=== PATIENT | male | born 1985 | race Caucasian/White ===

== ENCOUNTER 2017-08-27 14:25 | Inpatient (IN) | payer MEDICAID, OTHER ==
[~2017-08-27] VITALS: Ht 175.3 cm; Wt 104.9 kg
[2017-08-27 14:20] VITALS: O2SAT 100
[2017-08-27] MEDS ORDERED: MIDAZOLAM HCL 5 MG/ML VIAL (1 ML) ONE (14:33)
[2017-08-27 14:47] LABS: AUTOMATED NEUTROPHIL # 8.8 TH/MM3 (1.8-7.7); BASOPHIL # 0.1 TH/MM3 (0-0.2); EOSINOPHIL # 0.1 TH/MM3 (0-0.4); EOSINOPHIL % 0.5 % (0.0-4.0); HEMATOCRIT 42.9 % (39.0-51.0); LYMPH % 15.9 % (9.0-44.0); LYMPHOCYTE # 1.8 TH/MM3 (1.0-4.8); MEAN CELL VOLUME 92.5 FL (80.0-100.0); MEAN CORPUSCULAR HEMOGLOBIN 32.3 PG (27.0-34.0); MEAN PLATELET VOLUME 8.5 FL (7.0-11.0); MONO % 6.7 % (0.0-8.0); MONOCYTE # 0.8 TH/MM3 (0-0.9); NEUT % 75.9 % (16.0-70.0); PLATELET COUNT 255 TH/MM3 (150-450); RED BLOOD COUNT 4.64 MIL/MM3 (4.50-5.90); RED CELL DISTRIBUTION WIDTH 12.5 % (11.6-17.2); WHITE BLOOD COUNT 11.6 TH/MM3 (4.0-11.0)
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
[2017-08-27] MEDS ORDERED: IOHEXOL 350 MG/ML 10 ML VIAL (for RAD DIAG) IVCONTRAST ONE (15:08)
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
[2017-08-27 15:17] LABS: INTERNATIONAL NORMALIZED RATIO 1.1 RATIO; PROTHROMBIN TIME - PATIENT 10.8 SEC (9.8-11.6)
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
[2017-08-27] MEDS: ACETAMINOPHEN 1000 MG/100 ML 100 ML IV SCH ×2 (15:30→20:26)
[2017-08-27] MEDS ORDERED: MAGNESIUM HYDROXIDE SUSP 30 ML CUP PO PRN (15:30)
[2017-08-27] MEDS ORDERED: CHLORHEXIDINE GLUCONATE 2 % 1 PACK (2 CLOTHS) TOP PRN (15:30)
[2017-08-27] MEDS ORDERED: SENNOSIDES 8.6 MG TAB PO PRN (15:30)
[2017-08-27] MEDS ORDERED: MISCELLANEOUS NURSING INFORMATION XX SCH (15:30)
[2017-08-27] MEDS ORDERED: BISACODYL 10 MG SUPP RECTAL PRN (15:30)
[2017-08-27] MEDS ORDERED: LACTULOSE SYRUP 20 GM/30 ML CUP PO PRN (15:30)
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
[2017-08-27] MEDS: SODIUM CHLOR 0.9% 1000 ML INJ 1,000 ML IV SCH (15:45)
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
[2017-08-27] MEDS: MORPHINE SULFATE 2 MG/ML INJ IV PUSH PRN ×2 (15:52→17:39)
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
[2017-08-27 16:00] VITALS: PULSE 60
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
[2017-08-27] MEDS: POTASSIUM CHLOR 10 MEQ PREMIX 100 ML IV SCH ×3 (17:00→19:00)
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
[2017-08-27 20:00] VITALS: BP 107/52; PULSE 68; RESP 11; TEMP 97.5; O2SAT 99
[2017-08-27] MEDS: CHLORHEXIDINE GLUCONATE 2 % 1 PACK (2 CLOTHS) TOP SCH (20:14)
[2017-08-27] MEDS: FAMOTIDINE 20 MG/2 ML VIAL IV PUSH SCH (20:25)
[2017-08-27] MEDS: DOCUSATE SODIUM 50 MG/SENNA 8.6 MG TAB PO SCH (20:26)
[2017-08-27 20:34] VITALS: BP 110/56; PULSE 60; RESP 15; TEMP 95.5; O2SAT 99
[2017-08-27 21:05] VITALS: O2SAT 98
[2017-08-27 22:00] VITALS: PULSE 56
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
[2017-08-28] VITALS (11 sets, daily range): BP systolic 95–115; BP diastolic 52–77; PULSE 57–89; RESP 12–32; TEMP 94.5–100; O2SAT 95–98
[2017-08-28] MEDS: MORPHINE SULFATE 2 MG/ML INJ IV PUSH PRN ×5 (01:36→20:30)
[2017-08-28] MEDS: SODIUM CHLOR 0.9% 1000 ML INJ 1,000 ML IV SCH ×3 (02:12→16:50)
[2017-08-28] MEDS: ACETAMINOPHEN 1000 MG/100 ML 100 ML IV SCH ×4 (02:12→20:40)
[2017-08-28 03:55] LABS: BASOPHIL % 0.2 % (0.0-2.0); EOSINOPHIL % 0.1 % (0.0-4.0); HEMATOCRIT 37.6 % (39.0-51.0); HEMOGLOBIN 12.8 GM/DL (13.0-17.0); LYMPH % 11.3 % (9.0-44.0); LYMPHOCYTE # 1.4 TH/MM3 (1.0-4.8); MEAN CORPUSCULAR HEMOGLOBIN 32.3 PG (27.0-34.0); MEAN PLATELET VOLUME 8.5 FL (7.0-11.0); MONO % 9.6 % (0.0-8.0); MONOCYTE # 1.2 TH/MM3 (0-0.9); NEUT % 78.8 % (16.0-70.0); PLATELET COUNT 222 TH/MM3 (150-450); RED BLOOD COUNT 3.96 MIL/MM3 (4.50-5.90); RED CELL DISTRIBUTION WIDTH 12.4 % (11.6-17.2); WHITE BLOOD COUNT 12.7 TH/MM3 (4.0-11.0)
[2017-08-28 04:17] LABS: BICARBONATE 22.3 MEQ/L (21.0-32.0); CALCIUM 8.2 MG/DL (8.5-10.1); CREATININE 0.78 MG/DL (0.60-1.30); MAGNESIUM 2.2 MG/DL (1.5-2.5); PHOSPHORUS 3.4 MG/DL (2.5-4.9)
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
[2017-08-28] MEDS ORDERED: THROMBIN (TOPICAL) 5,000 UNIT VIAL ONE (08:30)
[2017-08-28] MEDS ORDERED: MICROFIBRILLAR COLLAGEN HEMOSTAT 70 X 35 MM BANDAGE ONE (08:30)
[2017-08-28] MEDS ORDERED: GELFOAM SIZE 100 ONE (08:30)
[2017-08-28] MEDS ORDERED: GENTAMICIN SULFATE 80 MG/2 ML VIAL ONE (08:31)
[2017-08-28] MEDS ORDERED: DEXAMETHASONE SOD PHOS 20 MG/5 ML VIAL ONE (08:31)
[2017-08-28] MEDS: DOCUSATE SODIUM 50 MG/SENNA 8.6 MG TAB PO SCH (08:59)
[2017-08-28] MEDS: FAMOTIDINE 20 MG/2 ML VIAL IV PUSH SCH (09:36)
[2017-08-28] MEDS ORDERED: HYDROmorphone HCL PF 2 MG/ML VIAL ONE (10:09)
[2017-08-28] MEDS ORDERED: PROPOFOL 500 MG/50 ML INJ 0 ML ONE (10:10)
[2017-08-28] MEDS ORDERED: DEXMEDETOMIDINE HCL 200 MCG/2 ML VIAL ONE (10:10)
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
[2017-08-28] MEDS ORDERED: VANCOMYCIN HCL 1000 MG VIAL ONE (10:47)
[2017-08-28] MEDS ORDERED: SODIUM CHLOR 0.9% 250 ML INJ 250 ML ONE (10:47)
[2017-08-28] MEDS ORDERED: ceFAZolin INJ 1,000 MG VIAL ONE (10:47)
[2017-08-28] MEDS ORDERED: ceFAZolin 2 GM PREMIX 50 ML ONE (10:47)
[2017-08-28] MEDS ORDERED: HYDROmorphone HCL PF 1 MG/ML VIAL ONE (10:56)
[2017-08-28] MEDS ORDERED: LACTATED RINGER'S 1000 ML INJ 1,000 ML IV ONE ×2 (11:00→12:00)
[2017-08-28] MEDS ORDERED: LIDOCAINE 1%/EPINEPHrine 1:100,000 SOLN 20 ML VIAL ONE (11:04)
[2017-08-28] MEDS ORDERED: SODIUM CHLOR 0.9% 1000 ML INJ 1,000 ML IV SCH (12:00)
[2017-08-28] MEDS ORDERED: GLYCOPYRROLATE 1 MG/5 ML SYRINGE IV PUSH ONE (12:00)
[2017-08-28] MEDS ORDERED: LIDOCAINE HCL 1% PF 5 ML SYRINGE OTHER ONE (12:00)
[2017-08-28] MEDS ORDERED: PHENYLEPH/NS 1000 MCG/10 ML SYR IV ONE (12:00)
[2017-08-28] MEDS ORDERED: DEXAMETHASONE SOD PHOS 4 MG/ML VIAL IV ONE (12:00)
[2017-08-28] MEDS ORDERED: NORMOSOL R INJ 1,000 ML IV ONE (12:00)
[2017-08-28] MEDS ORDERED: ePHEDrine/NS 25 MG/5 ML SYRINGE IV ONE (12:00)
[2017-08-28] MEDS ORDERED: PROPOFOL 200 MG/20 ML AMP IV ONE (12:00)
[2017-08-28] MEDS ORDERED: ceFAZolin 2 GM PREMIX 50 ML IV ONE (12:00)
[2017-08-28] MEDS ORDERED: ONDANSETRON HCL 4 MG/2 ML VIAL IV PUSH ONE (12:00)
[2017-08-28] MEDS ORDERED: NEOSTIGMINE 5 MG/5 ML SYRINGE IV PUSH ONE (12:00)
[2017-08-28] MEDS ORDERED: VANCOMYCIN INJ 1,000 MG in SODIUM CHLOR 0.9% 250 ML INJ 250 ML IV ONE (12:00)
[2017-08-28] MEDS ORDERED: ROCURONIUM INJ 50 MG/5 ML SYRINGE IV PUSH ONE (12:00)
[2017-08-28] MEDS ORDERED: VECURONIUM BROMIDE 20 MG VIAL IV ONE (12:00)
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
[2017-08-28] MEDS ORDERED: PROPOFOL 500 MG/50 ML INJ 100 ML ONE (13:36)
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
[2017-08-28] MEDS ORDERED: BISACODYL 10 MG SUPP RECTAL PRN (15:45)
[2017-08-28] MEDS ORDERED: DEXTROSE 50% IN WATER 50 ML VIAL(D50) IV PUSH PRN (15:45)
[2017-08-28] MEDS ORDERED: CYCLOBENZAPRINE HCL 10 MG TAB PO PRN (15:45)
[2017-08-28] MEDS ORDERED: RESP: ALBUTEROL 2.5 MG/3 ML NEB (PRN) INH (15:45)
[2017-08-28] MEDS ORDERED: GLUCAGON 1 MG/ML VIAL OTHER PRN (15:45)
[2017-08-28] MEDS ORDERED: cloNIDine HCL 0.1 MG TAB PO/NG PRN (15:45)
[2017-08-28] MEDS ORDERED: ONDANSETRON HCL 4 MG/2 ML VIAL IV PRN (15:45)
[2017-08-28] MEDS ORDERED: MENTHOL LOZENGE BUCCAL PRN (15:45)
[2017-08-28] MEDS ORDERED: MAGNESIUM HYDROXIDE SUSP 30 ML CUP PO PRN (15:45)
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
[2017-08-28] MEDS ORDERED: SUGAMMADEX SODIUM 200 MG/2 ML VIAL IV PUSH ONE (16:10)
[2017-08-28] MEDS ORDERED: DO NOT ADM ANY ANTICOAGULANT DRUGS PRN (16:24)
[2017-08-28] MEDS ORDERED: *RESP: ALBUTEROL 2.5 MG/3 ML NEB (PRN) PERIprocedural Use ONLY NEB ONE (16:35)
[2017-08-28] MEDS ORDERED: OXYMETAZOLINE HCL 0.05% 15 ML NASAL SPRAY ONE (16:40)
[2017-08-28] MEDS ORDERED: MIDAZOLAM HCL 2 MG/2 ML VIAL ONE (16:40)
[2017-08-28] MEDS: INSULIN ASPART SUPPLEMENTAL SCALE SQ SCH ×2 (16:44→21:00)
[2017-08-28] MEDS ORDERED: *morphine SULFATE 4 MG/ML PERIprocedure ONLY ONE ×2 (16:46→17:05)
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
[2017-08-28] MEDS ORDERED: ATROPINE SULFATE 1 MG/10 ML SYRINGE ONE (17:15)
[2017-08-28] MEDS: DEXAMETHASONE SOD PHOS 4 MG/ML VIAL IV PUSH SCH (17:43)
[2017-08-28] MEDS ORDERED: DOPamine INJ 1,600 MG in DEXTROSE 5% IN WATER INJ 210 ML IV PRN ×2 (17:45)
[2017-08-28] MEDS ORDERED: TERBUTALINE INJ 1 MG/ML AMP SQ PRN (17:45)
[2017-08-28] MEDS: CHLORHEXIDINE GLUCONATE 4% SOLN 120 ML BTL TOP SCH ×2 (19:57→21:00)
[2017-08-28] MEDS: ONDANSETRON HCL 4 MG/2 ML VIAL IV PUSH PRN (20:14)
[2017-08-28] MEDS: DOCUSATE SODIUM 100 MG CAP PO SCH (20:32)
[2017-08-28] MEDS: ceFAZolin 2 GM PREMIX 50 ML IV SCH (20:41)
[2017-08-29] VITALS (13 sets, daily range): BP systolic 109–122; BP diastolic 49–66; PULSE 52–95; RESP 12–18; TEMP 99.5–100.8; O2SAT 95–98
[2017-08-29] MEDS: DEXAMETHASONE SOD PHOS 4 MG/ML VIAL IV PUSH SCH ×4 (00:24→17:34)
[2017-08-29] MEDS: SODIUM CHLOR 0.9% 1000 ML INJ 1,000 ML IV SCH ×4 (00:52→23:46)
[2017-08-29] MEDS: MORPHINE SULFATE 2 MG/ML INJ IV PUSH PRN ×7 (01:07→21:00)
[2017-08-29] MEDS: ACETAMINOPHEN 1000 MG/100 ML 100 ML IV SCH ×2 (03:19→08:25)
[2017-08-29] MEDS: ceFAZolin 2 GM PREMIX 50 ML IV SCH ×2 (03:23→11:07)
[2017-08-29] MEDS: CHLORHEXIDINE GLUCONATE 2 % 1 PACK (2 CLOTHS) TOP SCH ×2 (03:24→23:49)
[2017-08-29 03:50] LABS: AUTOMATED NEUTROPHIL # 11.5 TH/MM3 (1.8-7.7); BASOPHIL % 0.2 % (0.0-2.0); HEMATOCRIT 36.2 % (39.0-51.0); HEMOGLOBIN 12.4 GM/DL (13.0-17.0); LYMPH % 8.6 % (9.0-44.0); LYMPHOCYTE # 1.2 TH/MM3 (1.0-4.8); MEAN CELL VOLUME 94.4 FL (80.0-100.0); MEAN CORPUSCULAR HEMOGLOBIN 32.3 PG (27.0-34.0); MEAN CORPUSCULAR HGB CONC 34.3 % (32.0-36.0); MEAN PLATELET VOLUME 8.7 FL (7.0-11.0); MONO % 7.1 % (0.0-8.0); NEUT % 84.1 % (16.0-70.0); PLATELET COUNT 209 TH/MM3 (150-450); RED BLOOD COUNT 3.83 MIL/MM3 (4.50-5.90); RED CELL DISTRIBUTION WIDTH 12.4 % (11.6-17.2); WHITE BLOOD COUNT 13.7 TH/MM3 (4.0-11.0)
[2017-08-29 04:25] LABS: ALBUMIN 3.2 GM/DL (3.4-5.0); ALT (GPT) 57 U/L (12-78); AST (GOT) 108 U/L (15-37); BLOOD UREA NITROGEN 9 MG/DL (7-18); CALCIUM 8.1 MG/DL (8.5-10.1); CHLORIDE 106 MEQ/L (98-107); CREATININE 0.77 MG/DL (0.60-1.30); GLOMERULAR FILTRATION RATE 118 ML/MIN (>89); GLUCOSE,RANDOM 134 MG/DL (74-106); SODIUM (NA) 139 MEQ/L (136-145)
[2017-08-29 04:27] LABS: ALKALINE PHOSPHATASE 60 U/L (45-117); TOTAL BILIRUBIN ADULT 0.6 MG/DL (0.2-1.0); TOTAL PROTEIN 6.6 GM/DL (6.4-8.2)
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
[2017-08-29] MEDS: INSULIN ASPART SUPPLEMENTAL SCALE SQ SCH ×4 (07:29→21:00)
[2017-08-29] MEDS: PANTOPRAZOLE SOD 40 MG DELAYED RELEASE TAB PO SCH (08:25)
[2017-08-29] MEDS: DOCUSATE SODIUM 100 MG CAP PO SCH ×2 (08:25→20:59)
[2017-08-29] MEDS ORDERED: PANTOPRAZOLE SODIUM 40 MG VIAL IVP SCH (09:00)
[2017-08-29] MEDS: ENOXAPARIN SODIUM 30 MG/0.3 ML SYRINGE SQ SCH (11:07)
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
[2017-08-29] MEDS: ACETAMINOPHEN 325 MG TAB PO PRN (17:34)
[2017-08-29] MEDS: CHLORHEXIDINE GLUCONATE 4% SOLN 120 ML BTL TOP SCH ×2 (20:56→21:00)
[2017-08-30] VITALS (14 sets, daily range): BP systolic 120–146; BP diastolic 57–75; PULSE 58–72; RESP 14–21; TEMP 98–100.9; O2SAT 91–98
[2017-08-30] MEDS: DEXAMETHASONE SOD PHOS 4 MG/ML VIAL IV PUSH SCH ×5 (00:02→23:50)
[2017-08-30] MEDS: ENOXAPARIN SODIUM 30 MG/0.3 ML SYRINGE SQ SCH ×3 (00:02→23:18)
[2017-08-30] MEDS: MORPHINE SULFATE 2 MG/ML INJ IV PUSH PRN ×5 (00:25→23:51)
[2017-08-30 03:30] LABS: AUTOMATED NEUTROPHIL # 10.4 TH/MM3 (1.8-7.7); BASOPHIL % 0.4 % (0.0-2.0); HEMATOCRIT 36.3 % (39.0-51.0); HEMOGLOBIN 12.4 GM/DL (13.0-17.0); LYMPH % 10.6 % (9.0-44.0); LYMPHOCYTE # 1.3 TH/MM3 (1.0-4.8); MEAN CELL VOLUME 93.7 FL (80.0-100.0); MEAN CORPUSCULAR HGB CONC 34.2 % (32.0-36.0); MEAN PLATELET VOLUME 8.9 FL (7.0-11.0); MONO % 6.4 % (0.0-8.0); MONOCYTE # 0.8 TH/MM3 (0-0.9); NEUT % 82.6 % (16.0-70.0); PLATELET COUNT 205 TH/MM3 (150-450); RED BLOOD COUNT 3.87 MIL/MM3 (4.50-5.90); RED CELL DISTRIBUTION WIDTH 12.3 % (11.6-17.2); WHITE BLOOD COUNT 12.6 TH/MM3 (4.0-11.0)
[2017-08-30 03:50] LABS: ALBUMIN 3.2 GM/DL (3.4-5.0); AST (GOT) 85 U/L (15-37); BICARBONATE 28.7 MEQ/L (21.0-32.0); BLOOD UREA NITROGEN 13 MG/DL (7-18); CALCIUM 8.4 MG/DL (8.5-10.1); CHLORIDE 104 MEQ/L (98-107); GLOMERULAR FILTRATION RATE 113 ML/MIN (>89); GLUCOSE,RANDOM 137 MG/DL (74-106); SODIUM (NA) 138 MEQ/L (136-145)
[2017-08-30 03:53] LABS: ALKALINE PHOSPHATASE 58 U/L (45-117); ALT (GPT) 50 U/L (12-78); TOTAL BILIRUBIN ADULT 0.6 MG/DL (0.2-1.0); TOTAL PROTEIN 6.8 GM/DL (6.4-8.2)
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
[2017-08-30] MEDS ORDERED: BISACODYL 10 MG SUPP RECTAL PRN (07:00)
[2017-08-30] MEDS: INSULIN ASPART SUPPLEMENTAL SCALE SQ SCH ×4 (08:00→21:00)
[2017-08-30] MEDS: LACTULOSE SYRUP 20 GM/30 ML CUP PO SCH (09:15)
[2017-08-30] MEDS: DOCUSATE SODIUM 50 MG/SENNA 8.6 MG TAB PO SCH ×2 (09:16→21:31)
[2017-08-30] MEDS: PANTOPRAZOLE SOD 40 MG DELAYED RELEASE TAB PO SCH (09:16)
[2017-08-30] MEDS: ACETAMINOPHEN/HYDROcodone 325 MG/10 MG TAB PO PRN ×4 (09:29→20:59)
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
[2017-08-30] MEDS ORDERED: FLUTICASONE PROPIONATE 50 MCG/ACT 16 GM NASAL SPRAY NASAL ONE (09:45)
[2017-08-30] MEDS ORDERED: SODIUM CHLORIDE 0.65% NASAL SPRAY 45 ML BTL EACH NARE PRN (09:45)
[2017-08-30] MEDS: BACLOFEN 10 MG TAB PO SCH ×3 (10:21→21:45)
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
[2017-08-30] MEDS: FLUTICASONE PROPIONATE 50 MCG/ACT 16 GM NASAL SPRAY NASAL SCH (21:00)
[2017-08-30] MEDS: CHLORHEXIDINE GLUCONATE 4% SOLN 120 ML BTL TOP SCH (21:00)
[2017-08-31] VITALS (13 sets, daily range): BP systolic 100–123; BP diastolic 53–82; PULSE 48–75; RESP 13–21; TEMP 98.2–99.7; O2SAT 94–99
[2017-08-31] MEDS: ACETAMINOPHEN/HYDROcodone 325 MG/10 MG TAB PO PRN ×4 (03:05→13:57)
[2017-08-31] MEDS: CHLORHEXIDINE GLUCONATE 2 % 1 PACK (2 CLOTHS) TOP SCH (04:00)
[2017-08-31] MEDS: DEXAMETHASONE SOD PHOS 4 MG/ML VIAL IV PUSH SCH ×4 (05:31→23:18)
[2017-08-31] MEDS: BACLOFEN 10 MG TAB PO SCH ×3 (06:32→20:30)
[2017-08-31 07:06] LABS: AUTOMATED NEUTROPHIL # 8.9 TH/MM3 (1.8-7.7); BASOPHIL % 0.3 % (0.0-2.0); HEMATOCRIT 37.8 % (39.0-51.0); HEMOGLOBIN 12.9 GM/DL (13.0-17.0); LYMPH % 14.5 % (9.0-44.0); LYMPHOCYTE # 1.7 TH/MM3 (1.0-4.8); MEAN CORPUSCULAR HEMOGLOBIN 32.2 PG (27.0-34.0); MEAN CORPUSCULAR HGB CONC 34.2 % (32.0-36.0); MEAN PLATELET VOLUME 9.1 FL (7.0-11.0); MONO % 9.5 % (0.0-8.0); MONOCYTE # 1.1 TH/MM3 (0-0.9); NEUT % 75.7 % (16.0-70.0); PLATELET COUNT 224 TH/MM3 (150-450); RED BLOOD COUNT 4.02 MIL/MM3 (4.50-5.90); RED CELL DISTRIBUTION WIDTH 12.5 % (11.6-17.2); WHITE BLOOD COUNT 11.8 TH/MM3 (4.0-11.0)
[2017-08-31 07:39] LABS: ALBUMIN 3.2 GM/DL (3.4-5.0); ALT (GPT) 43 U/L (12-78); AST (GOT) 66 U/L (15-37); BICARBONATE 26.6 MEQ/L (21.0-32.0); BLOOD UREA NITROGEN 16 MG/DL (7-18); CALCIUM 8.5 MG/DL (8.5-10.1); CHLORIDE 102 MEQ/L (98-107); GLOMERULAR FILTRATION RATE 113 ML/MIN (>89); GLUCOSE,RANDOM 124 MG/DL (74-106); SODIUM (NA) 137 MEQ/L (136-145)
[2017-08-31 07:42] LABS: ALKALINE PHOSPHATASE 57 U/L (45-117); TOTAL BILIRUBIN ADULT 0.7 MG/DL (0.2-1.0)
--- NOTE | 2017-08-31 08:48 | HHI.PR ---
Neuropsych Cognitive Cognitive: Intact: Cognitive, Attention/Concentration, Confused/Orientation, Insight/Awareness, Judgement/Problem-Solving, Memory Psychosocial Psychosocial: Intact: Self-Esteem/Confidence, Moderate: Psychosocial, Family/ Other Adjustment, Realistic Expectation Progress Notes/Response to Tx Contents of Sessions: Adjustment, Level of Consciousness Time with Patient: 15 minutes Premorbid psychological status Premorbid Cognitive, Emotional and Behavioral Status: Stable. The patient has high school years of education and a solid work history prior to this injury. [place]. The patient has no prior psychiatric difficulties, as described above. Substance abuse history is unremarkable. Behavioral Reactions of Patient and Family/Support System: Stable. The patient s family is experiencing ongoing issues of adjustment given the nature of the injury, and this aspect of recovery will require ongoing monitoring. Emotional/Behavioral Status of Patient and Family/Support System: Stable. Pertinent issues, if appropriate to this patients clinical care, are described in detail above. Maximizing acute care outcome It is recommended that the patient be monitored for emergent emotional reactivity as the medical condition evolves. This patients neuropathological challenges may limit his rehabilitation potential going forward, and these challenges will require specialized therapeutic skills to maximize outcome. Additionally, the patients family is experiencing ongoing issues of adjustment given the traumatic nature of the injury, and they may benefit from ongoing psychological assistance. At this point in the recovery process, the patient does have cognitive capacity as the patient is able to understand a situation and its likely consequences, and he is able to manipulate information rationally. Cognitive capacity will be assessed throughout the recovery process. I will follow this patient throughout his acute care stay for adjustment issues. As an adjunct to his emotional stability and pain control, consider starting Cymbalta 30 BID, unless medically contraindicated. Anticipated Problems Ongoing areas of concern will include psychological adjustment, which is expected to improve with time and treatment. Given the severity of the patient's injuries it is my clinical opinion that this patient will be unable to return to any type of productive employment for at least one year, perhaps longer and likely never. Treatment Plan This clinician will continue to follow with you throughout the course of this patients acute care treatment, and I will be available to meet with the patient s family/support system to facilitate their understanding and the ongoing care of their family member. The goals of neuropsychological intervention shall be both educational and supportive to the family/support system as is deemed clinically appropriate. Impression This is a 31 year old man s/p SCI at C5-6 2T [facility]. He is being followed for emotional adjustment following a spinal cord injury. Diagnosis: (1) Adjustment disorder with anxiety Progress Note Narrative Ongoing follow-up of patient seen during daily trauma rounds. This is day 4 post injury. The patient remains neurobehaviorally appropriate, upbeat about his condition. He is able to move his upper extremities. No suicidal or homicidal ideation reported. I provided psychosocial support and encouragement. Trauma team consensus is to start Cymbalta 30 BID. I will continue to follow. Americo Levine PhD Aug 31, 2017 8:48 am
[2017-08-31] MEDS: PANTOPRAZOLE SOD 40 MG DELAYED RELEASE TAB PO SCH (09:38)
[2017-08-31] MEDS: LACTULOSE SYRUP 20 GM/30 ML CUP PO SCH (09:38)
[2017-08-31] MEDS: DOCUSATE SODIUM 50 MG/SENNA 8.6 MG TAB PO SCH ×2 (09:38→20:30)
[2017-08-31] MEDS: ENOXAPARIN SODIUM 30 MG/0.3 ML SYRINGE SQ SCH ×2 (09:39→23:18)
--- NOTE | 2017-08-31 09:46 | RADRPT ---
EXAM DATE/TIME: 08/31/2017 08:17 [place] COMPARISON: ELBOW LEFT COMPLETE (4 VWS), August 27, 2017, 22:15. ELBOW LEFT LIMITED (AP & LAT), August 27 8, 14:27. INDICATIONS : Left elbow pain, follow up dislocation and reduction MEDICAL HISTORY : left elbow dislocation, c-spine fracture SURGICAL HISTORY : c-spine, halo ENCOUNTER: Subsequent ACUITY: 4 - 6 days PAIN SCORE: 5/10 LOCATION: Left elbow FINDINGS: Multiple views of the left elbow were obtained and demonstrate reduction of the previously noted post erior dislocation. There is residual widening of joint space. There is an apparent subtle fracture of the radial head. CONCLUSION: Postreduction study as described. Jared Maria MD on August 31, 2017 at 9:21 Board Certified Radiologist. This report was verified electronically.
[2017-08-31] MEDS ORDERED: MORPHINE SULFATE 2 MG/ML INJ IV PUSH PRN (10:00)
[2017-08-31] MEDS: FLUTICASONE PROPIONATE 50 MCG/ACT 16 GM NASAL SPRAY NASAL SCH ×2 (10:57→20:30)
[2017-08-31] MEDS: DULoxetine HCl DR 30 MG CAP PO SCH ×2 (11:21→20:30)
[2017-08-31] MEDS: LIDOCAINE HCL 5% PATCH T-DERMAL SCH (11:22)
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
[2017-08-31] MEDS: REMOVE OLD LIDOCAINE PATCH T-DERMAL SCH (21:00)
[2017-09-01] VITALS (9 sets, daily range): BP systolic 109–130; BP diastolic 56–72; PULSE 52–72; RESP 12–25; TEMP 97.3–99; O2SAT 94–99
[2017-09-01] MEDS: ACETAMINOPHEN/HYDROcodone 325 MG/10 MG TAB PO PRN (01:51)
[2017-09-01] MEDS: CHLORHEXIDINE GLUCONATE 2 % 1 PACK (2 CLOTHS) TOP SCH (04:00)
[2017-09-01] MEDS: BACLOFEN 10 MG TAB PO SCH ×3 (06:13→22:27)
[2017-09-01] MEDS: DEXAMETHASONE SOD PHOS 4 MG/ML VIAL IV PUSH SCH ×4 (06:13→22:26)
[2017-09-01] MEDS: FLUTICASONE PROPIONATE 50 MCG/ACT 16 GM NASAL SPRAY NASAL SCH ×2 (09:00→20:01)
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
[2017-09-01] MEDS: DOCUSATE SODIUM 50 MG/SENNA 8.6 MG TAB PO SCH ×2 (10:28→20:00)
[2017-09-01] MEDS: DULoxetine HCl DR 30 MG CAP PO SCH ×2 (10:28→20:00)
[2017-09-01] MEDS: PANTOPRAZOLE SOD 40 MG DELAYED RELEASE TAB PO SCH (10:29)
[2017-09-01] MEDS: LACTULOSE SYRUP 20 GM/30 ML CUP PO SCH (10:29)
[2017-09-01] MEDS: LIDOCAINE HCL 5% PATCH T-DERMAL SCH (10:29)
[2017-09-01] MEDS: ENOXAPARIN SODIUM 30 MG/0.3 ML SYRINGE SQ SCH ×2 (10:29→22:26)
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
--- NOTE | 2017-09-01 12:06 | HHI.PR ---
Neuropsych Emotional Emotional: Moderate: Anxious/Fearful, Depressed/Sad Behavior Behavior: Intact: Coping/Acceptance, Cooperative w/ Treatment, Motivation, Frustration Tolerance/[place], Impulsive/Agitated Cognitive Cognitive: Intact: Cognitive, Attention/Concentration, Confused/Orientation, Insight/Awareness, Judgement/Problem-Solving, Memory Progress Notes/Response to Tx Contents of Sessions: Adjustment, Level of Consciousness Time with Patient: 15 minutes Premorbid psychological status Premorbid Cognitive, Emotional and Behavioral Status: Stable. The patient has high school years of education and a solid work history prior to this injury. He had just moved to [place] from [place] two weeks prior. The patient has no prior psychiatric difficulties, as described above. Substance abuse history is unremarkable. Behavioral Reactions of Patient and Family/Support System: Stable. The patient s family is experiencing ongoing issues of adjustment given the nature of the injury, and this aspect of recovery will require ongoing monitoring. Emotional/Behavioral Status of Patient and Family/Support System: Stable. Pertinent issues, if appropriate to this patients clinical care, are described in detail above. Maximizing acute care outcome It is recommended that the patient be monitored for emergent emotional reactivity as the medical condition evolves. This patients neuropathological challenges may limit his rehabilitation potential going forward, and these challenges will require specialized therapeutic skills to maximize outcome. Additionally, the patients family is experiencing ongoing issues of adjustment given the traumatic nature of the injury, and they may benefit from ongoing psychological assistance. At this point in the recovery process, the patient does have cognitive capacity as the patient is able to understand a situation and its likely consequences, and he is able to manipulate information rationally. Cognitive capacity will be assessed throughout the recovery process. I will follow this patient throughout his acute care stay for adjustment issues. As an adjunct to his emotional stability and pain control, consider starting Cymbalta 30 BID, unless medically contraindicated. Anticipated Problems Ongoing areas of concern will include psychological adjustment, which is expected to improve with time and treatment. Given the severity of the patient's injuries it is my clinical opinion that this patient will be unable to return to any type of productive employment for at least one year, perhaps longer and likely never. Treatment Plan This clinician will continue to follow with you throughout the course of this patients acute care treatment, and I will be available to meet with the patient s family/support system to facilitate their understanding and the ongoing care of their family member. The goals of neuropsychological intervention shall be both educational and supportive to the family/support system as is deemed clinically appropriate. Impression This is a 31 year old man s/p SCI at [facility] [place] He is being followed for emotional adjustment following a spinal cord injury. Diagnosis: (1) Adjustment disorder with anxiety Progress Note Narrative Ongoing follow-up of patient seen during daily trauma rounds. This is day 5 post injury. Yesterday bedside, he remains in relatively good spirits, is able to move upper extremities with diminished fine motor dexterity. Today, he was at CT when I arrived. RN at bedside indicated no significant issues. He is on Cymbalta 30 BID. I will continue to follow. Americo Levine PhD Sep 01, 2017 12:06 pm
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
[2017-09-01] MEDS: REMOVE OLD LIDOCAINE PATCH T-DERMAL SCH (21:00)
[2017-09-01] MEDS: ACETAMINOPHEN/HYDROcodone 325 MG/5 MG TAB PO PRN (22:32)
[2017-09-02] VITALS (7 sets, daily range): BP systolic 99–122; BP diastolic 56–67; PULSE 54–65; RESP 17–18; TEMP 96.5–99; O2SAT 93–97
[2017-09-02] MEDS: CHLORHEXIDINE GLUCONATE 2 % 1 PACK (2 CLOTHS) TOP SCH ×2 (04:00→23:11)
[2017-09-02] MEDS: DEXAMETHASONE SOD PHOS 4 MG/ML VIAL IV PUSH SCH ×4 (05:07→21:55)
[2017-09-02] MEDS: BACLOFEN 10 MG TAB PO SCH ×3 (05:11→21:55)
[2017-09-02] MEDS: LIDOCAINE HCL 5% PATCH T-DERMAL SCH (09:26)
[2017-09-02] MEDS: DULoxetine HCl DR 30 MG CAP PO SCH ×2 (09:27→21:52)
[2017-09-02] MEDS: PANTOPRAZOLE SOD 40 MG DELAYED RELEASE TAB PO SCH (09:27)
[2017-09-02] MEDS: DOCUSATE SODIUM 50 MG/SENNA 8.6 MG TAB PO SCH ×2 (09:27→21:52)
[2017-09-02] MEDS: LACTULOSE SYRUP 20 GM/30 ML CUP PO SCH (09:33)
[2017-09-02] MEDS: FLUTICASONE PROPIONATE 50 MCG/ACT 16 GM NASAL SPRAY NASAL SCH ×2 (09:33→21:52)
[2017-09-02] MEDS: ENOXAPARIN SODIUM 30 MG/0.3 ML SYRINGE SQ SCH ×2 (10:53→23:11)
[2017-09-02] MEDS: ACETAMINOPHEN/HYDROcodone 325 MG/10 MG TAB PO PRN (10:54)
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
[2017-09-02] MEDS: REMOVE OLD LIDOCAINE PATCH T-DERMAL SCH (21:00)
[2017-09-03] VITALS: BP 126/66; PULSE 52; RESP 16; TEMP 96.1; O2SAT 95
[2017-09-03 04:00] VITALS: BP 128/66; PULSE 52; RESP 16; TEMP 97.6; O2SAT 97
[2017-09-03] MEDS: DEXAMETHASONE SOD PHOS 4 MG/ML VIAL IV PUSH SCH ×3 (06:00→22:03)
[2017-09-03] MEDS: BACLOFEN 10 MG TAB PO SCH ×3 (06:00→22:03)
[2017-09-03 08:00] VITALS: BP 122/64; PULSE 49; RESP 17; TEMP 96.5; O2SAT 97
[2017-09-03] MEDS: FLUTICASONE PROPIONATE 50 MCG/ACT 16 GM NASAL SPRAY NASAL SCH ×2 (09:00→20:17)
[2017-09-03] MEDS: LIDOCAINE HCL 5% PATCH T-DERMAL SCH (09:54)
[2017-09-03] MEDS: DULoxetine HCl DR 30 MG CAP PO SCH ×2 (09:55→20:13)
[2017-09-03] MEDS: PANTOPRAZOLE SOD 40 MG DELAYED RELEASE TAB PO SCH (09:55)
[2017-09-03] MEDS: DOCUSATE SODIUM 50 MG/SENNA 8.6 MG TAB PO SCH ×2 (09:55→20:13)
[2017-09-03] MEDS: LACTULOSE SYRUP 20 GM/30 ML CUP PO SCH (09:58)
[2017-09-03] MEDS: ENOXAPARIN SODIUM 30 MG/0.3 ML SYRINGE SQ SCH ×2 (11:00→22:04)
[2017-09-03 12:00] VITALS: BP 125/66; PULSE 119; RESP 18; TEMP 96.9; O2SAT 96
[2017-09-03 16:00] VITALS: BP 115/59; PULSE 84; RESP 18; O2SAT 98
[2017-09-03] MEDS ORDERED: DULO1CAP2 PO (16:01)
[2017-09-03] MEDS ORDERED: BACL10TA PO (16:01)
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
[2017-09-03] MEDS: CHLORHEXIDINE GLUCONATE 2 % 1 PACK (2 CLOTHS) TOP SCH (19:24)
[2017-09-03 20:00] VITALS: BP 104/58; PULSE 50; PULSE 55; RESP 18; TEMP 96.1; O2SAT 96
[2017-09-03] MEDS: REMOVE OLD LIDOCAINE PATCH T-DERMAL SCH (20:14)
[2017-09-03] MEDS: ACETAMINOPHEN/HYDROcodone 325 MG/5 MG TAB PO PRN (20:16)
[2017-09-04] VITALS (9 sets, daily range): BP systolic 104–120; BP diastolic 49–59; PULSE 52–77; RESP 16–19; TEMP 95.8–97.5; O2SAT 95–97
[2017-09-04] MEDS: BACLOFEN 10 MG TAB PO SCH ×3 (06:04→22:18)
[2017-09-04] MEDS: DEXAMETHASONE SOD PHOS 4 MG/ML VIAL IV PUSH SCH ×2 (06:04→22:18)
--- NOTE | 2017-09-04 06:46 | PD.ORT.PN ---
Subjective Subjective Remarks Pain controlled with no new complaints Objective Vitals Vital Signs Date Time Temp Pulse Resp B/P (MAP) Pulse Ox O2 Delivery O2 Flow Rate FiO2 09/04/17 04:00 97.5 52 16 120/59 (79) 96 09/04/17 04:00 54 09/04/17 00:00 55 09/04/17 00:00 96.5 53 16 108/51 (70) 95 09/03/17 20:14 Room Air 09/03/17 20:00 96.1 55 18 104/58 (73) 96 09/03/17 20:00 50 09/03/17 16:00 84 18 115/59 (77) 98 09/03/17 12:00 96.9 119 18 125/66 (85) 96 09/03/17 08:00 96.5 49 17 122/64 (83) 97 I/O 09/03/17 09/03/17 09/03/17 09/04/17 09/04/17 09/04/17 07:00 15:00 23:00 07:00 15:00 23:00 Intake Total 240 ml 1440 ml 240 ml Output Total 175 ml 2300 ml 400 ml Balance 65 ml -860 ml -160 ml Intake Oral 240 ml 1440 ml 240 ml Output Urine Total 175 ml 2300 ml 400 ml # Bowel Movements 0 0 Result Diagram: 08/31/1722 08/31/17 0622 Imaging Last 24 hours Impressions Chest X-Ray 08/28/17 0000 Signed Impressions: Service Date/Time: Monday, August 28, 2017 04:22 - CONCLUSION: 1. Left basilar atelectasis Kem Bettencourt MD Thoracic Spine CT 08/27/17 143 Signed Impressions: Service Date/Time: Sunday, August 27, 2017 14:53 - CONCLUSION: Unremarkable examination of the thoracic spine. No evidence of fracture. Kem Bettencourt MD Pelvis X-Ray [id number] Signed Impressions: Service Date/Time: Sunday, August 27, 2017 14:27 - CONCLUSION: 1. Limited examination but no fractures identified Kem Bettencourt MD Lumbar Spine CT [id number] Signed Impressions: Service Date/Time: Sunday, August 27, 2017 14:53 - CONCLUSION: 1. Kem Bettencourt MD Head CT 08/27/17 1433 Signed Impressions: Service Date/Time: Sunday, August 27, 2017 14:39 - CONCLUSION: 1. No evidence of acute intracranial pathology. No masses are identified. Kem Bettencourt MD Chest X-Ray 08/27/17 143 Signed Impressions: Service Date/Time: Sunday, August 27, 2017 14:27 - CONCLUSION: 1. No acute cardiopulmonary disease. Kem Bettencourt MD Chest CT [id number] Signed Impressions: Service Date/Time: Sunday, August 27, 2017 14:59 - CONCLUSION: 1. No evidence of acute thoracic abnormality. No masses are identified. Kem Bettencourt MD Cervical Spine CT [id number] Signed Impressions: Service Date/Time: Sunday, August 27, 2017 14:39 - CONCLUSION: 1. Unstable fracture the cervical spine with fracture subluxation at C6-C7 and 9 mm of subluxation. 2. There is facet fracture on the right side which is perched on the apex of the right C7 facet. 3. On the left side there is complete facet jump Kem Bettencourt MD Abdomen/Pelvis CT 08/27/17 1433 Signed Impressions: Service Date/Time: Sunday, August 27, 2017 14:53 - CONCLUSION: 1. No evidence of acute abdominal or pelvic process. No masses are identified. Kem Bettencourt MD Objective Remarks LUE: +long arm splint. full movement of shoulder with no pain. full sensation to median nerve over thumb. No sensation to the index finger. no sensation to ulnar nerve. no motor function at this point. RUE: full motion. no pain. nvi BLE: no motion or sensation of bilateral legs. Assessment & Plan Assessment and Plan 1) Left Elbow Dislocation s/p Reduction -NWB -maintain splint- for 1 more week and then will begin range of motion. 2) Left Ulnar Nerve Injury -will monitor. -likely stretched from dislocation. 3) Spinal Cord lesion with cervical spine fx -neruo managing. Jared Mata Jr. Sep 04, 2017 06:46
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
[2017-09-04] MEDS: FLUTICASONE PROPIONATE 50 MCG/ACT 16 GM NASAL SPRAY NASAL SCH (09:00)
[2017-09-04] MEDS: LACTULOSE SYRUP 20 GM/30 ML CUP PO SCH (10:48)
[2017-09-04] MEDS: DULoxetine HCl DR 30 MG CAP PO SCH ×2 (10:48→22:18)
[2017-09-04] MEDS: PANTOPRAZOLE SOD 40 MG DELAYED RELEASE TAB PO SCH (10:49)
[2017-09-04] MEDS: DOCUSATE SODIUM 50 MG/SENNA 8.6 MG TAB PO SCH ×2 (10:49→22:18)
[2017-09-04] MEDS: LIDOCAINE HCL 5% PATCH T-DERMAL SCH (10:49)
[2017-09-04] MEDS: ENOXAPARIN SODIUM 30 MG/0.3 ML SYRINGE SQ SCH ×2 (10:51→22:18)
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
[2017-09-04] MEDS ORDERED: FLUTICASONE PROPIONATE 50 MCG/ACT 16 GM NASAL SPRAY NASAL PRN (13:30)
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
[2017-09-04] MEDS: REMOVE OLD LIDOCAINE PATCH T-DERMAL SCH (21:00)
[2017-09-05] VITALS (8 sets, daily range): BP systolic 103–114; BP diastolic 50–54; PULSE 54–60; RESP 17–18; TEMP 96.4–97.7; O2SAT 95–97
[2017-09-05] MEDS: BACLOFEN 10 MG TAB PO SCH ×3 (05:58→23:07)
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
[2017-09-05] MEDS ORDERED: PERI PO (09:20)
[2017-09-05] MEDS: ENOXAPARIN SODIUM 30 MG/0.3 ML SYRINGE SQ SCH ×2 (11:45→23:07)
[2017-09-05] MEDS: LACTULOSE SYRUP 20 GM/30 ML CUP PO SCH (11:45)
[2017-09-05] MEDS: DEXAMETHASONE SOD PHOS 4 MG/ML VIAL IV PUSH SCH ×2 (11:46→19:40)
[2017-09-05] MEDS: DULoxetine HCl DR 30 MG CAP PO SCH ×2 (11:46→19:40)
[2017-09-05] MEDS: DOCUSATE SODIUM 50 MG/SENNA 8.6 MG TAB PO SCH ×2 (11:46→19:40)
[2017-09-05] MEDS: PANTOPRAZOLE SOD 40 MG DELAYED RELEASE TAB PO SCH (11:46)
[2017-09-05] MEDS: LIDOCAINE HCL 5% PATCH T-DERMAL SCH (11:47)
[2017-09-05] MEDS: REMOVE OLD LIDOCAINE PATCH T-DERMAL SCH (19:40)
[2017-09-05] MEDS: ACETAMINOPHEN/HYDROcodone 325 MG/5 MG TAB PO PRN (23:07)
[2017-09-06 00:25] VITALS: BP 121/59; PULSE 66; RESP 17; TEMP 97.4; O2SAT 95
[2017-09-06] MEDS: BACLOFEN 10 MG TAB PO SCH ×3 (06:13→20:28)
[2017-09-06 08:00] VITALS: BP 123/59; PULSE 59; RESP 17; TEMP 97.3; O2SAT 95
[2017-09-06] MEDS: DOCUSATE SODIUM 50 MG/SENNA 8.6 MG TAB PO SCH ×2 (08:05→20:27)
[2017-09-06] MEDS: LACTULOSE SYRUP 20 GM/30 ML CUP PO SCH (08:05)
[2017-09-06] MEDS: PANTOPRAZOLE SOD 40 MG DELAYED RELEASE TAB PO SCH (08:05)
[2017-09-06] MEDS: DEXAMETHASONE SOD PHOS 4 MG/ML VIAL IV PUSH SCH ×2 (08:06→20:27)
[2017-09-06] MEDS: DULoxetine HCl DR 30 MG CAP PO SCH ×2 (08:06→20:27)
[2017-09-06] MEDS: LIDOCAINE HCL 5% PATCH T-DERMAL SCH (08:06)
[2017-09-06] MEDS: ENOXAPARIN SODIUM 30 MG/0.3 ML SYRINGE SQ SCH ×2 (11:09→23:32)
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
[2017-09-06 12:00] VITALS: BP 105/58; PULSE 65; RESP 17; TEMP 97.5; O2SAT 93
[2017-09-06 16:00] VITALS: BP 120/53; PULSE 70; RESP 17; TEMP 97.2; O2SAT 92
[2017-09-06 20:25] VITALS: BP 108/48; PULSE 66; RESP 17; TEMP 96.7; O2SAT 94
[2017-09-06] MEDS: ACETAMINOPHEN/HYDROcodone 325 MG/5 MG TAB PO PRN (20:28)
[2017-09-06] MEDS: BACITRACIN TOP OINT 15 GM TUBE TOPICAL SCH (20:29)
[2017-09-06] MEDS: REMOVE OLD LIDOCAINE PATCH T-DERMAL SCH (20:29)
[2017-09-06 21:00] VITALS: PULSE 59
[2017-09-07] VITALS (7 sets, daily range): BP systolic 110–134; BP diastolic 54–65; PULSE 57–70; RESP 16–17; TEMP 95.9–97.9; O2SAT 93–97
[2017-09-07 03:55] LABS: AUTOMATED NEUTROPHIL # 10.8 TH/MM3 (1.8-7.7); BASOPHIL # 0.1 TH/MM3 (0-0.2); BASOPHIL % 0.5 % (0.0-2.0); EOSINOPHIL # 0.1 TH/MM3 (0-0.4); EOSINOPHIL % 0.4 % (0.0-4.0); HEMATOCRIT 40.3 % (39.0-51.0); HEMOGLOBIN 13.6 GM/DL (13.0-17.0); LYMPH % 16.9 % (9.0-44.0); LYMPHOCYTE # 2.5 TH/MM3 (1.0-4.8); MEAN CELL VOLUME 94.7 FL (80.0-100.0); MEAN CORPUSCULAR HEMOGLOBIN 31.9 PG (27.0-34.0); MEAN CORPUSCULAR HGB CONC 33.7 % (32.0-36.0); MEAN PLATELET VOLUME 8.6 FL (7.0-11.0); MONO % 9.8 % (0.0-8.0); MONOCYTE # 1.5 TH/MM3 (0-0.9); NEUT % 72.4 % (16.0-70.0); PLATELET COUNT 304 TH/MM3 (150-450); RED BLOOD COUNT 4.26 MIL/MM3 (4.50-5.90); RED CELL DISTRIBUTION WIDTH 12.7 % (11.6-17.2)
[2017-09-07 04:29] LABS: ALBUMIN 3.2 GM/DL (3.4-5.0); ALT (GPT) 39 U/L (12-78); AST (GOT) 17 U/L (15-37); BICARBONATE 25.9 MEQ/L (21.0-32.0); BLOOD UREA NITROGEN 21 MG/DL (7-18); CALCIUM 8.4 MG/DL (8.5-10.1); CHLORIDE 101 MEQ/L (98-107); CREATININE 0.72 MG/DL (0.60-1.30); GLOMERULAR FILTRATION RATE 127 ML/MIN (>89); GLUCOSE,RANDOM 126 MG/DL (74-106); SODIUM (NA) 135 MEQ/L (136-145)
[2017-09-07 04:30] LABS: ALKALINE PHOSPHATASE 57 U/L (45-117); TOTAL BILIRUBIN ADULT 0.7 MG/DL (0.2-1.0); TOTAL PROTEIN 6.7 GM/DL (6.4-8.2)
[2017-09-07] MEDS: BACLOFEN 10 MG TAB PO SCH ×3 (06:32→22:00)
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
[2017-09-07] MEDS: LACTULOSE SYRUP 20 GM/30 ML CUP PO SCH (09:00)
[2017-09-07] MEDS: DULoxetine HCl DR 30 MG CAP PO SCH ×2 (09:17→21:00)
[2017-09-07] MEDS: LIDOCAINE HCL 5% PATCH T-DERMAL SCH (09:17)
[2017-09-07] MEDS: DEXAMETHASONE SOD PHOS 4 MG/ML VIAL IV PUSH SCH ×2 (09:18→21:00)
[2017-09-07] MEDS: PANTOPRAZOLE SOD 40 MG DELAYED RELEASE TAB PO SCH (09:18)
[2017-09-07] MEDS: DOCUSATE SODIUM 50 MG/SENNA 8.6 MG TAB PO SCH ×2 (09:18→21:00)
[2017-09-07] MEDS: BACITRACIN TOP OINT 15 GM TUBE TOPICAL SCH ×2 (09:22→21:00)
[2017-09-07] MEDS: ENOXAPARIN SODIUM 30 MG/0.3 ML SYRINGE SQ SCH ×2 (11:44→23:00)
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
[2017-09-07] MEDS: REMOVE OLD LIDOCAINE PATCH T-DERMAL SCH (21:00)
[2017-09-08] VITALS (7 sets, daily range): BP systolic 110–127; BP diastolic 56–63; PULSE 56–70; RESP 15–17; TEMP 96.2–97; O2SAT 96–97
[2017-09-08] MEDS: BACLOFEN 10 MG TAB PO SCH ×3 (04:37→22:00)
[2017-09-08] MEDS: DOCUSATE SODIUM 50 MG/SENNA 8.6 MG TAB PO SCH ×2 (09:00→20:46)
[2017-09-08] MEDS: LACTULOSE SYRUP 20 GM/30 ML CUP PO SCH (09:00)
[2017-09-08] MEDS: DEXAMETHASONE SOD PHOS 4 MG/ML VIAL IV PUSH SCH (09:13)
[2017-09-08] MEDS: DULoxetine HCl DR 30 MG CAP PO SCH ×2 (09:13→16:08)
[2017-09-08] MEDS: PANTOPRAZOLE SOD 40 MG DELAYED RELEASE TAB PO SCH (09:13)
[2017-09-08] MEDS: LIDOCAINE HCL 5% PATCH T-DERMAL SCH (09:14)
[2017-09-08] MEDS: BACITRACIN TOP OINT 15 GM TUBE TOPICAL SCH ×2 (09:14→20:49)
[2017-09-08] MEDS: ENOXAPARIN SODIUM 30 MG/0.3 ML SYRINGE SQ SCH ×2 (11:51→23:00)
--- NOTE | 2017-09-08 12:36 | PD.PSY.CON ---
Provisional Diagnosis Admission Date Aug 27, 2017 at 15:17 [place] I. Adjustment disorder with depressed mood and anxiety [place] II. Unspecified personality disorder, rule out antisocial personality [place] III. 1) Left Elbow Dislocation s/p Reduction -NWB -maintain splint- for 1 more week and then will begin range of motion. 2) Left Ulnar Nerve Injury -will monitor. -likely stretched from dislocation. 3) Spinal Cord lesion with cervical spine fx -neruo managing. [place] IV. Poor family and social support [place] V. 55 History of Present Illness Service Psychiatry Consult Requested By Trauma team Reason for Consult Depression and anxiety Primary Care Physician Unknown HPI The patient is a 31 year-old man, domicile in [place] with his parents , he was here in [place] for medications, is , unemployed, with psychiatric history of self reported unspecified personality disorder, 1 previous psychiatric hospitalization in [place], cannabis and alcohol use disorder, 1 previous suicidal attempt by hanging, no significant medical history , who was brought to the hospital because he was involved in [id number] 1 trauma with Left Elbow Dislocation s/p Reduction. Left Ulnar Nerve Injury. Spinal Cord lesion with cervical spine fx. Patient has been followed by neuropsychologist Dr. Levine, his notes were reviewed. Has been treated with Cymbalta 30 mg help with depression and pain. Consulted to psychiatry to address pathology of depression and anxiety. On psychiatric evaluation today the patient is calm, cooperative, pleasant. Patient reports that today he feels much better. He has episodes of racing, increased anxiety, frustration and feeling guilty. Patient says that being in the hospital for such a long time, immobile, is extremely difficult for him. Patient says that he is hopeful that things are going to get better, and his philosophy is taking things day by day. At this moment he denies pain, discomfort, he denies anxiety , he denies depressive symptoms. He reports that during certain periods of the days, not every day, he feels very anxious, his panicking and he wants to run out of his skin. He also reports that at night sometimes very difficult to asleep and if he wakes up is difficult to follow asleep again. The patient is fully oriented 3, he doesn't have any attention deficit, no fluctuation of consciousness, and he can communicate without no obstacles, he is logical, coherent and relevant. She says that he has history of antisocial personality disorder diagnosis in a previous hospitalization in [place]. He says that he could be an impulsive person,with short temper, and can become very difficult. He reports that he has history of multiple incarcerations in the past, including his longest one for 5 years due to drug selling. Patient reports occasional use of alcohol and daily use of marijuana. Review of Systems Constitutional: DENIES: Diaphoretic episodes, Fatigue, Fever, Weight gain, Weight loss, Chills, Dizziness, Change in appetite, Night Sweats Endocrine: DENIES: Heat/cold intolerance, Polydipsia, Polyuria, Polyphagia Eyes: DENIES: Blurred vision, Diplopia, Eye inflammation, Eye pain, Vision loss , Photosensitivity, Double Vision Ears, nose, mouth, throat: DENIES: Tinnitus, Hearing loss, Vertigo, Nasal discharge, Oral lesions, Throat pain, Hoarseness, Ear Pain, Running Nose, Epistaxis, Sinus Pain, Toothache, Odynophagia Respiratory: DENIES: Apneas, Cough, Snoring, Wheezing, Hemoptysis, Sputum production, Shortness of breath Cardiovascular: DENIES: Chest pain, Palpitations, Syncope, Dyspnea on Exertion , PND, Lower Extremity Edema, Orthopnea, Claudication Gastrointestinal: DENIES: Abdominal pain, Black stools, Bloody stools, Constipation, Diarrhea, Nausea, Vomiting, Difficulty Swallowing, Anorexia Genitourinary: DENIES: Sexual dysfunction, Urinary frequency, Urinary incontinence, Urgency, Hematuria, Dysuria, Nocturia, Penile Discharge, Testicular Pain, Testicular Swelling Musculoskeletal: DENIES: Joint pain, Muscle aches, Stiffness, Joint Swelling, Back pain, Neck pain Integumentary: DENIES: Abnormal pigmentation, Nail changes, Pruritus, Rash Hematologic/lymphatic: DENIES: Bruising, Lymphadenopathy Immunologic/allergic: DENIES: Eczema, Urticaria Psychiatric: COMPLAINS OF: Anxiety, Depression, DENIES: Confusion, Mood changes , Hallucinations, Agitation, Suicidal Ideation, Homicidal Ideation, Delusions Past Family Social History Coded Allergies: No Known Allergies (Unverified , 08/27/17) Active Scripts Duloxetine (Duloxetine DR) 30 Mg Capdr, 30 MG PO BID for Depression Control, #30 CAP Prov:Santhosh Mcdowell TELEPHONE ORDER CLERK ROOM SERVICE 09/03/17 Baclofen (Baclofen) 10 Mg Tab, 10 MG PO Q8HR for Muscle Spasm, #30 TAB Prov:Santhosh Mcdowell TELEPHONE ORDER CLERK ROOM SERVICE 09/03/17 Current Medications Medications (Trade) Dose Ordered Sig/Kareem Route Start Time Stop Time Status Last Admin (Zofran Inj) 4 mg Q6H PRN IV PUSH 08/27/17 15:30 08/28/17 20:14 Miscellaneous Information 1 Q361D XX 08/27/17 15:30 08/27/17 15:30 (Protonix) 40 mg DAILY PO 08/29/17 09:00 09/08/17 09:13 (Catapres) 0.1 mg Q6H PRN PO/NG 08/28/17 15:45 (Tylenol) 650 mg Q4H PRN PO 08/28/17 15:45 08/29/17 17:34 ([place] Kaitlynn) 1 lozenge UNSCH PRN BUCCAL 08/28/17 15:45 08/31/17 13:57 (Albuterol Neb) 2.5 mg Q4HR NEB PRN INH 08/28/17 15:45 (Lovenox Inj) 30 mg Q12H SQ 08/29/17 11:00 09/08/17 11:51 (Edelmira-Colace) 1 tab BID PO 08/30/17 09:00 09/07/17 21:00 (Lactulose Liq) 30 ml DAILY PO 08/30/17 09:00 09/05/17 11:45 (Dulcolax Supp) 10 mg DAILY PRN RECTAL 08/30/17 07:00 09/01/17 10:28 (Lioresal) 10 mg Q8HR PO 08/30/17 09:15 09/08/17 04:37 (Lidoderm 5% Patch.12 Hr) 1 patch DAILY T-DERMAL 08/31/17 10:00 09/08/17 09:14 ([place] 5-325 Mg) 1 tab Q4H PRN PO 08/31/17 10:00 09/06/17 20:28 Miscellaneous Information 1 Q24H T-DERMAL 08/31/17 21:00 09/07/17 21:00 (Decadron Inj) 4 mg BID IV PUSH 09/04/17 21:00 09/08/17 09:13 (Flonase Diego Spr) 1 spray BID PRN NASAL 09/04/17 13:30 09/05/17 11:45 (Baciguent Oint) 1 applic BID TOPICAL 09/06/17 21:00 09/08/17 09:14 (Cymbalta Dr) 90 mg BID PO 09/08/17 21:00 UNV (KlonoPIN) 0.5 mg Q12HR PO 09/08/17 21:00 UNV Family Psych History His mother has a schizophrenic Social History Patient was born and raised in [place], he lives in [place] with his parents, he was in [place] for vacation, he is , unemployed, he has 2 kids, his highest level of education is high school and some college Patient's Strengths (min. 2) Verbal communication Physical Exam Limited due to immobility Vital Signs Vital Signs Date Time Temp Pulse Resp B/P (MAP) Pulse Ox O2 Delivery O2 Flow Rate FiO2 09/08/17 11:40 97.0 62 17 111/57 (75) 96 09/07/17 19:08 Room Air I/O 09/08/17 09/08/17 09/09/17 08:00 16:00 00:00 Output Total 800 ml Balance -800 ml Lab Results Date/Time Source Procedure Growth Status 09/07/17 19:30 Urine Catheterized Urine Urine Culture - Preliminary NO GROWTH IN 24 HOURS. Resulted Mental Status Examination Appearance: Appropriate Consciousness: Alert Orientation: x4 Motor Activity: Normal gait Speech: Unremarkable Language: Adequate Fund of Knowledge: Adequate Attention and Concentration: Adequate Memory: Unremarkable Mood: Appropriate Affect: Appropriate Thought Process & Associations: Intact Thought Content: Appropriate Hallucination Type: None Delusion Type: None Suicidal Ideation: No Suicidal Plan: No Suicidal Intention: No Homicidal Ideation: No Homicidal Plan: No Homicidal Intention: No Insight: Adequate Judgment: Adequate Assessment & Plan Problem List: (1) Adjustment disorder with mixed anxiety and depressed mood ICD Codes: F43.23 - Adjustment disorder with mixed anxiety and depressed mood Assessment & Plan: On psychiatric evaluation today the patient is calm, cooperative and pleasant. The patient does not have any active, acute, concerning subjective or objective symptomatology of depression, anxiety, jass or psychosis at this right moment. The patient denies suicidal and homicidal ideation, he denies visual and auditory hallucinations. He is logical, coherent and relevant. He is oriented 3, no attention deficit, no fluctuation of consciousness noted in this evaluation. The patient does report episodic sad mood, sense of worthlessness, guiltiness, difficulty sleeping at night and anxiety. Obesity, this symptomatology is directly secondary to his current medical situation and not to a primary major psychiatric illness decompensation. The patient reports that he has history of personality disorder knows during a psychiatric hospitalization in the past, but this character pathology doesn't seem to be interfering with medical treatment at this moment. I will increase Cymbalta to a more therapeutic dose, 90 mg per day for to help with pain and also with mood. Will order clonazepam 0.5 mg twice a day to help the patient to cope with anxiety and to be calmer. Continue current medical treatment as needed. Brief supportive psychotherapy and motivation provided. We'll discuss with Dr. Levine further psychiatric treatment and follow ups. Consult appreciated. Assessment & Plan Estimated LOS: Antoni Zacarias MD Sep 08, 2017 12:36
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
[2017-09-08] MEDS: clonazePAM 0.5 MG TAB PO SCH (20:46)
[2017-09-08] MEDS: REMOVE OLD LIDOCAINE PATCH T-DERMAL SCH (20:49)
[2017-09-09] VITALS: BP 117/65; PULSE 61; RESP 16; TEMP 97.2; O2SAT 98
[2017-09-09] MEDS: BACLOFEN 10 MG TAB PO SCH ×3 (06:05→22:03)
[2017-09-09 08:00] VITALS: BP 105/55; PULSE 63; RESP 18; TEMP 96.4; O2SAT 97
[2017-09-09] MEDS: LIDOCAINE HCL 5% PATCH T-DERMAL SCH (08:08)
[2017-09-09] MEDS: clonazePAM 0.5 MG TAB PO SCH ×2 (08:08→19:36)
[2017-09-09] MEDS: PANTOPRAZOLE SOD 40 MG DELAYED RELEASE TAB PO SCH (08:08)
[2017-09-09] MEDS: DOCUSATE SODIUM 50 MG/SENNA 8.6 MG TAB PO SCH ×2 (08:09→19:37)
[2017-09-09] MEDS: DEXAMETHASONE SOD PHOS 4 MG/ML VIAL IV PUSH SCH (08:09)
[2017-09-09] MEDS: LACTULOSE SYRUP 20 GM/30 ML CUP PO SCH (08:09)
[2017-09-09] MEDS: DULoxetine HCl DR 30 MG CAP PO SCH (08:09)
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
[2017-09-09] MEDS: BACITRACIN TOP OINT 15 GM TUBE TOPICAL SCH ×2 (09:00→19:37)
[2017-09-09] MEDS: ENOXAPARIN SODIUM 30 MG/0.3 ML SYRINGE SQ SCH ×2 (10:47→22:03)
[2017-09-09 12:00] VITALS: BP 117/65; PULSE 67; RESP 18; TEMP 97; O2SAT 94
[2017-09-09 16:00] VITALS: BP 108/59; PULSE 70; RESP 18; TEMP 96.3; O2SAT 95
[2017-09-09] MEDS: REMOVE OLD LIDOCAINE PATCH T-DERMAL SCH (19:36)
[2017-09-09 20:30] VITALS: BP 125/61; PULSE 59; RESP 18; TEMP 97.3; O2SAT 96
[2017-09-10 00:10] VITALS: BP 122/56; PULSE 67; RESP 18; TEMP 98.5; O2SAT 98
[2017-09-10] MEDS: BACLOFEN 10 MG TAB PO SCH ×3 (05:49→21:14)
[2017-09-10] MEDS: ENOXAPARIN SODIUM 30 MG/0.3 ML SYRINGE SQ SCH ×2 (07:17→21:15)
[2017-09-10] MEDS: clonazePAM 0.5 MG TAB PO SCH ×2 (07:18→21:14)
[2017-09-10] MEDS: DOCUSATE SODIUM 50 MG/SENNA 8.6 MG TAB PO SCH ×2 (07:18→21:00)
[2017-09-10] MEDS: PANTOPRAZOLE SOD 40 MG DELAYED RELEASE TAB PO SCH (07:18)
[2017-09-10] MEDS: DULoxetine HCl DR 30 MG CAP PO SCH (07:18)
[2017-09-10] MEDS: LIDOCAINE HCL 5% PATCH T-DERMAL SCH (07:18)
[2017-09-10] MEDS: DEXAMETHASONE SOD PHOS 4 MG/ML VIAL IV PUSH SCH (07:19)
[2017-09-10] MEDS: LACTULOSE SYRUP 20 GM/30 ML CUP PO SCH (07:19)
[2017-09-10] MEDS: BACITRACIN TOP OINT 15 GM TUBE TOPICAL SCH ×2 (07:26→21:17)
[2017-09-10 07:52] VITALS: BP 108/58; PULSE 63; RESP 18; TEMP 98.6; O2SAT 95
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
[2017-09-10 12:00] VITALS: BP 121/66; PULSE 70; RESP 18; TEMP 97.6; O2SAT 95
[2017-09-10 16:00] VITALS: BP 112/54; PULSE 72; RESP 18; TEMP 98.2; O2SAT 92
[2017-09-10 20:55] VITALS: BP 116/57; PULSE 62; RESP 18; TEMP 97.6; O2SAT 98
[2017-09-10] MEDS: REMOVE OLD LIDOCAINE PATCH T-DERMAL SCH (21:16)
[2017-09-11] VITALS: BP 112/62; PULSE 64; RESP 18; TEMP 96.7; O2SAT 97
[2017-09-11] MEDS: BACLOFEN 10 MG TAB PO SCH ×3 (05:15→21:22)
--- NOTE | 2017-09-11 06:43 | PD.ORT.PN ---
Subjective Subjective Remarks Pain controlled with no new complaints Objective Vitals Vital Signs Date Time Temp Pulse Resp B/P (MAP) Pulse Ox O2 Delivery O2 Flow Rate FiO2 09/11/17 00:00 96.7 64 18 112/62 (79) 97 09/10/17 20:55 97.6 62 18 116/57 (76) 98 09/10/17 16:00 98.2 72 18 112/54 (73) 92 09/10/17 12:00 97.6 70 18 121/66 (84) 95 09/10/17 07:52 98.6 63 18 108/58 (75) 95 I/O 09/10/17 09/10/17 09/10/17 09/11/17 09/11/17 09/11/17 07:00 15:00 23:00 07:00 15:00 23:00 Intake Total 360 ml 840 ml 360 ml 240 ml Output Total 400 ml 2450 ml 1300 ml 650 ml Balance -40 ml -1610 ml -940 ml -410 ml Intake Oral 360 ml 840 ml 360 ml 240 ml Output Urine Total 400 ml 2450 ml 1300 ml 650 ml # Bowel Movements 0 0 1 1 Result Diagram: 09/07/17 0330 09/07/17 0330 Imaging Last 24 hours Impressions Chest X-Ray 08/28/17 0000 Signed Impressions: Service Date/Time: Monday, August 28, 2017 04:22 - CONCLUSION: 1. Left basilar atelectasis Kem Bettencourt MD Thoracic Spine CT [id number]/27/171432 Signed Impressions: Service Date/Time: Sunday, August 27, 2017 14:53 - CONCLUSION: Unremarkable examination of the thoracic spine. No evidence of fracture. Kem Bettencourt MD Pelvis X-Ray [id number]/[id number] Signed Impressions: Service Date/Time: Sunday, August 27, 2017 14:27 - CONCLUSION: 1. Limited examination but no fractures identified Kem Bettencourt MD Lumbar Spine CT [id number]/[id number] Signed Impressions: Service Date/Time: Sunday, August 27, 2017 14:53 - CONCLUSION: 1. Kem Bettencourt MD Head CT [id number]/[id number] Signed Impressions: Service Date/Time: Sunday, August 27, 2017 14:39 - CONCLUSION: 1. No evidence of acute intracranial pathology. No masses are identified. Kem Bettencourt MD Chest X-Ray [id number]/[id number] Signed Impressions: Service Date/Time: Sunday, August 27, 2017 14:27 - CONCLUSION: 1. No acute cardiopulmonary disease. Kem Bettencourt MD Chest CT [id number]/171432 Signed Impressions: Service Date/Time: Sunday, August 27, 2017 14:59 - CONCLUSION: 1. No evidence of acute thoracic abnormality. No masses are identified. Kem Bettencourt MD Cervical Spine CT [id number]/171432 Signed Impressions: Service Date/Time: Sunday, August 27, 2017 14:39 - CONCLUSION: 1. Unstable fracture the cervical spine with fracture subluxation at C6-C7 and 9 mm of subluxation. 2. There is facet fracture on the right side which is perched on the apex of the right C7 facet. 3. On the left side there is complete facet jump Kem Bettencourt MD Abdomen/Pelvis CT [id number]/[id number] Signed Impressions: Service Date/Time: Sunday, August 27, 2017 14:53 - CONCLUSION: 1. No evidence of acute abdominal or pelvic process. No masses are identified. Kem Bettencourt MD Objective Remarks LUE: Splint removed. Elbow motion 30-120 degrees. full sensation to median nerve over thumb. No sensation to the index finger. no sensation to ulnar nerve. slight flexion of fingers. No extension of wrist or fingers RUE: full motion. no pain. nvi BLE: no motion or sensation of bilateral legs. Assessment & Plan Assessment and Plan 1) Left Elbow Dislocation s/p Reduction -NWB -Discontinue splint and placed into cradle sling Occupational therapy for passive and active range of motion of shoulder elbow wrist and fingers Order x-rays today of elbow and wrist at 12:00 2) Left Ulnar Nerve Injury -will monitor. -likely stretched from dislocation. 3) Spinal Cord lesion with cervical spine fx -neruo managing. Jared Mata Jr. Sep 11, 2017 06:43
[2017-09-11 08:00] VITALS: BP 106/59; PULSE 55; RESP 18; TEMP 96; O2SAT 94
--- NOTE | 2017-09-11 08:29 | HHI.PR ---
Neuropsych Behavior Behavior: Intact: Cooperative w/ Treatment, Motivation, Frustration Tolerance/ [place], Impulsive/Agitated Cognitive Cognitive: Intact: Cognitive, Attention/Concentration, Confused/Orientation, Insight/Awareness, Judgement/Problem-Solving, Memory Psychosocial Psychosocial: Moderate: Psychosocial, Family/Other Adjustment, Realistic Expectation, Unable to Asses: Self-Esteem/Confidence Progress Notes/Response to Tx Contents of Sessions: Adjustment, Level of Consciousness Time with Patient: 15 minutes Premorbid psychological status Premorbid Cognitive, Emotional and Behavioral Status: Stable. The patient has high school years of education and a solid work history prior to this injury. He had just moved to [place] from [place] two weeks prior. The patient has no prior psychiatric difficulties, as described above. Substance abuse history is unremarkable. Behavioral Reactions of Patient and Family/Support System: Stable. The patient s family is experiencing ongoing issues of adjustment given the nature of the injury, and this aspect of recovery will require ongoing monitoring. Emotional/Behavioral Status of Patient and Family/Support System: Stable. Pertinent issues, if appropriate to this patients clinical care, are described in detail above. Maximizing acute care outcome It is recommended that the patient be monitored for emergent emotional reactivity as the medical condition evolves. This patients neuropathological challenges may limit his rehabilitation potential going forward, and these challenges will require specialized therapeutic skills to maximize outcome. Additionally, the patients family is experiencing ongoing issues of adjustment given the traumatic nature of the injury, and they may benefit from ongoing psychological assistance. At this point in the recovery process, the patient does have cognitive capacity as the patient is able to understand a situation and its likely consequences, and he is able to manipulate information rationally. Cognitive capacity will be assessed throughout the recovery process. I will follow this patient throughout his acute care stay for adjustment issues. As an adjunct to his emotional stability and pain control, consider starting Cymbalta 30 BID, unless medically contraindicated. Anticipated Problems Ongoing areas of concern will include psychological adjustment, which is expected to improve with time and treatment. Given the severity of the patient's injuries it is my clinical opinion that this patient will be unable to return to any type of productive employment for at least one year, perhaps longer and likely never. Treatment Plan This clinician will continue to follow with you throughout the course of this patients acute care treatment, and I will be available to meet with the patient s family/support system to facilitate their understanding and the ongoing care of their family member. The goals of neuropsychological intervention shall be both educational and supportive to the family/support system as is deemed clinically appropriate. Impression This is a 31 year old man s/p SCI at C5-6 2T [facility]. He is being followed for emotional adjustment following a spinal cord injury. Diagnosis: (1) Adjustment disorder with anxiety Status: Acute Progress Note Narrative Ongoing follow-up of patient seen during daily trauma rounds. This is day15 post injury. The patient was seen by psychiatry (appreciate input!) and increased Cymbalta to 90 qD up from 30 BID, and also started clonazepam 0.5 qD. The patient is generally neurobehaviorally stable. He does report feeling overly sedated, apparently sleeping 12+ hours yesterday. I will continue to follow. Americo Levine PhD Sep 11, 2017 8:28 am
[2017-09-11] MEDS: PANTOPRAZOLE SOD 40 MG DELAYED RELEASE TAB PO SCH (08:53)
[2017-09-11] MEDS: clonazePAM 0.5 MG TAB PO SCH ×2 (08:53→21:22)
[2017-09-11] MEDS: DEXAMETHASONE SOD PHOS 4 MG/ML VIAL IV PUSH SCH (08:53)
[2017-09-11] MEDS: LIDOCAINE HCL 5% PATCH T-DERMAL SCH (08:53)
[2017-09-11] MEDS: LACTULOSE SYRUP 20 GM/30 ML CUP PO SCH (08:54)
[2017-09-11] MEDS: DULoxetine HCl DR 30 MG CAP PO SCH (08:54)
[2017-09-11] MEDS: DOCUSATE SODIUM 50 MG/SENNA 8.6 MG TAB PO SCH ×2 (08:54→21:22)
[2017-09-11] MEDS: BACITRACIN TOP OINT 15 GM TUBE TOPICAL SCH ×2 (08:55→21:24)
[2017-09-11] MEDS: ENOXAPARIN SODIUM 30 MG/0.3 ML SYRINGE SQ SCH ×2 (08:59→23:59)
[2017-09-11] MEDS: ACETAMINOPHEN 325 MG TAB PO PRN (11:35)
[2017-09-11 12:00] VITALS: BP 116/60; PULSE 62; RESP 18; TEMP 97.6; O2SAT 98
--- NOTE | 2017-09-11 13:05 | RADRPT ---
EXAM DATE/TIME: 09/11/2017 12:26 [facility] COMPARISON: No previous studies available for comparison. INDICATIONS : Left wrist pain, limited range of motion MEDICAL HISTORY : Spinal cord injury SURGICAL HISTORY : Appendectomy. ENCOUNTER: Subsequent ACUITY: 4 - 6 days PAIN SCORE: 6/10 LOCATION: Left wrist FINDINGS: Three view examination of the left wrist demonstrates no soft tissue swelling, dislocation, or fractu re. The carpal bones are in normal alignment. The joint spaces are maintained. Bony mineralization is normal. Incidental finding of some old healed fractures of the third and fourth metacarpals. CONCLUSION: 1. No acute fracture or joint dislocation. The carpal bones are grossly unremarkable. 2. Old healed fractures involving the third fourth metacarpals. Vega Carmichael MD on September 11, 2017 at 13:02 Board Certified Radiologist. This report was verified electronically.
--- NOTE | 2017-09-11 13:08 | RADRPT ---
EXAM DATE/TIME: 09/11/2017 12:30 [facility] COMPARISON: ELBOW LEFT COMPLETE (4 VWS), August 27, 2017, 22:15. INDICATIONS : Left elbow pain, limited range of motion MEDICAL HISTORY : Renal failure SURGICAL HISTORY : Appendectomy. ENCOUNTER: Initial ACUITY: 4 - 6 days PAIN SCORE: 5/10 LOCATION: Left elbow FINDINGS: Multiple view examination of the left elbow demonstrates a sliver of bone adjacent to the lateral hum eral condyle. Otherwise, the bony structures are grossly intact. There is no evidence of a joint effu yosi. No joint dislocation is seen. The rest of bony structures are grossly intact. CONCLUSION: 1. There is a small sliver of cortical bone adjacent to the lateral humeral condyle. This could be a cortical avulsion injury of unknown age. Recommend correlation with point tenderness in this location . 2. Otherwise, the rest of bony structures are intact with no other definite acute fracture or joint d islocation. No definite joint effusion. Vega Carmichael MD on September 11, 2017 at 13:03 Board Certified Radiologist. This report was verified electronically.
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
[2017-09-11 16:00] VITALS: BP 118/62; PULSE 70; RESP 16; TEMP 98.2; O2SAT 100
[2017-09-11 20:45] VITALS: BP 97/52; PULSE 65; RESP 18; TEMP 96.7; O2SAT 96
[2017-09-11] MEDS: REMOVE OLD LIDOCAINE PATCH T-DERMAL SCH (21:23)
[2017-09-12 00:11] VITALS: BP 106/60; PULSE 62; RESP 18; TEMP 97.3; O2SAT 96
[2017-09-12] MEDS: BACLOFEN 10 MG TAB PO SCH ×3 (06:23→21:38)
[2017-09-12 08:00] VITALS: BP 104/59; PULSE 54; RESP 18; TEMP 96; O2SAT 97
--- NOTE | 2017-09-12 08:36 | HHI.PR ---
Neuropsych Emotional Emotional: Mild: Anxious/Fearful, Depressed/Sad Behavior Behavior: Intact: Cooperative w/ Treatment, Motivation, Frustration Tolerance/ [place], Impulsive/Agitated Cognitive Cognitive: Intact: Cognitive, Attention/Concentration, Confused/Orientation, Insight/Awareness, Judgement/Problem-Solving, Memory Progress Notes/Response to Tx Contents of Sessions: Adjustment, Level of Consciousness Time with Patient: 15 minutes Premorbid psychological status Premorbid Cognitive, Emotional and Behavioral Status: Stable. The patient has high school years of education and a solid work history prior to this injury. He had just moved to [place] from [place] two weeks prior. The patient has no prior psychiatric difficulties, as described above. Substance abuse history is unremarkable. Behavioral Reactions of Patient and Family/Support System: Stable. The patient s family is experiencing ongoing issues of adjustment given the nature of the injury, and this aspect of recovery will require ongoing monitoring. Emotional/Behavioral Status of Patient and Family/Support System: Stable. Pertinent issues, if appropriate to this patients clinical care, are described in detail above. Maximizing acute care outcome It is recommended that the patient be monitored for emergent emotional reactivity as the medical condition evolves. This patients neuropathological challenges may limit his rehabilitation potential going forward, and these challenges will require specialized therapeutic skills to maximize outcome. Additionally, the patients family is experiencing ongoing issues of adjustment given the traumatic nature of the injury, and they may benefit from ongoing psychological assistance. At this point in the recovery process, the patient does have cognitive capacity as the patient is able to understand a situation and its likely consequences, and he is able to manipulate information rationally. Cognitive capacity will be assessed throughout the recovery process. I will follow this patient throughout his acute care stay for adjustment issues. As an adjunct to his emotional stability and pain control, consider starting Cymbalta 30 BID, unless medically contraindicated. Anticipated Problems Ongoing areas of concern will include psychological adjustment, which is expected to improve with time and treatment. Given the severity of the patient's injuries it is my clinical opinion that this patient will be unable to return to any type of productive employment for at least one year, perhaps longer and likely never. Treatment Plan This clinician will continue to follow with you throughout the course of this patients acute care treatment, and I will be available to meet with the patient s family/support system to facilitate their understanding and the ongoing care of their family member. The goals of neuropsychological intervention shall be both educational and supportive to the family/support system as is deemed clinically appropriate. Impression This is a 31 year old man s/p SCI at C5-6 2T [facility]. He is being followed for emotional adjustment following a spinal cord injury. Diagnosis: (1) Adjustment disorder with anxiety Status: Acute Progress Note Narrative Ongoing follow-up of patient seen during daily trauma rounds. This is day 16 post injury. Discussed the patient's care with Dr. Castro, specifically concerning patient's complaint of overly sedated. I will check with patient today to see if this is still the case. Yesterday, he refused the Cymbalta. Suggestion is to return the Cymbalta to 30 BID. Otherwise there are no neurobehavioral issues. I will continue to follow. Americo Levine PhD Sep 12, 2017 8:36 am
[2017-09-12] MEDS: ACETAMINOPHEN 325 MG TAB PO PRN (08:41)
[2017-09-12] MEDS: PANTOPRAZOLE SOD 40 MG DELAYED RELEASE TAB PO SCH (08:41)
[2017-09-12] MEDS: DEXAMETHASONE SOD PHOS 4 MG/ML VIAL IV PUSH SCH (08:41)
[2017-09-12] MEDS: LIDOCAINE HCL 5% PATCH T-DERMAL SCH (08:41)
[2017-09-12] MEDS: clonazePAM 0.5 MG TAB PO SCH ×2 (08:41→21:38)
[2017-09-12] MEDS: BACITRACIN TOP OINT 15 GM TUBE TOPICAL SCH ×2 (08:48→21:39)
[2017-09-12] MEDS: DOCUSATE SODIUM 50 MG/SENNA 8.6 MG TAB PO SCH ×2 (08:48→21:37)
[2017-09-12] MEDS: DULoxetine HCl DR 30 MG CAP PO SCH (08:48)
[2017-09-12] MEDS: LACTULOSE SYRUP 20 GM/30 ML CUP PO SCH (08:48)
[2017-09-12] MEDS: ENOXAPARIN SODIUM 30 MG/0.3 ML SYRINGE SQ SCH ×2 (11:41→23:33)
[2017-09-12 11:42] VITALS: BP 92/49; PULSE 61; RESP 17; TEMP 95.4; O2SAT 94
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
[2017-09-12 15:29] VITALS: BP 106/52; PULSE 61; RESP 16; TEMP 95.5; O2SAT 95
[2017-09-12 20:55] VITALS: BP 100/50; PULSE 64; RESP 17; TEMP 96.9; O2SAT 97
[2017-09-12] MEDS: REMOVE OLD LIDOCAINE PATCH T-DERMAL SCH (21:38)
[2017-09-13 00:35] VITALS: BP 107/52; PULSE 68; RESP 17; TEMP 96.8; O2SAT 96
[2017-09-13 04:40] VITALS: BP 134/78; PULSE 88; RESP 17; TEMP 98.8; O2SAT 100
[2017-09-13] MEDS: BACLOFEN 10 MG TAB PO SCH ×3 (04:54→20:33)
--- NOTE | 2017-09-13 06:52 | PD.ORT.PN ---
Subjective Subjective Remarks Stable no changes Objective Vitals Vital Signs Date Time Temp Pulse Resp B/P (MAP) Pulse Ox O2 Delivery O2 Flow Rate FiO2 09/13/17 04:40 09/13/17 00:35 96.8 68 17 107/52 (70) 96 09/12/17 20:55 96.9 64 17 100/50 (67) 97 09/12/17 15:29 95.5 61 16 106/52 (70) 95 09/12/17 11:42 95.4 61 17 92/49 (63) 94 09/12/17 08:00 96.0 54 18 104/59 (74) 97 I/O 09/12/17 09/12/17 09/12/17 09/13/17 09/13/17 09/13/17 07:00 15:00 23:00 07:00 15:00 23:00 Intake Total 360 ml 600 ml 480 ml Output Total 600 ml 650 ml 400 ml Balance -240 ml -50 ml 80 ml Intake Oral 360 ml 600 ml 480 ml Output Urine Total 600 ml 650 ml 400 ml # Bowel Movements 0 0 0 Imaging Last 72 hours Impressions Wrist X-Ray 09/11/17 1200 Signed Impressions: Service Date/Time: Monday, September 11, 2017 12:26 - CONCLUSION: 1. No acute fracture or joint dislocation. The carpal bones are grossly unremarkable. 2. Old healed fractures involving the third fourth metacarpals. Vega Carmichael MD Elbow X-Ray 09/11/17 1200 Signed Impressions: Service Date/Time: Monday, September 11, 2017 12:30 - CONCLUSION: 1. There is a small sliver of cortical bone adjacent to the lateral humeral condyle. This could be a cortical avulsion injury of unknown age. Recommend correlation with point tenderness in this location. 2. Otherwise, the rest of bony structures are intact with no other definite acute fracture or joint dislocation. No definite joint effusion. Vega Carmichael MD Last 24 hours Impressions Chest X-Ray 08/28/17 0000 Signed Impressions: Service Date/Time: Monday, August 28, 2017 04:22 - CONCLUSION: 1. Left basilar atelectasis Kem Bettencourt MD Thoracic Spine CT 08/27/17 1433 Signed Impressions: Service Date/Time: Sunday, August 27, 2017 14:53 - CONCLUSION: Unremarkable examination of the thoracic spine. No evidence of fracture. Kem Bettencourt MD Pelvis X-Ray [id number]/27/[id number] Signed Impressions: Service Date/Time: Sunday, August 27, 2017 14:27 - CONCLUSION: 1. Limited examination but no fractures identified Kem Bettencourt MD Lumbar Spine CT [id number]/[id number] Signed Impressions: Service Date/Time: Sunday, August 27, 2017 14:53 - CONCLUSION: 1. Kem Bettencourt MD Head CT [id number]/[id number] Signed Impressions: Service Date/Time: Sunday, August 27, 2017 14:39 - CONCLUSION: 1. No evidence of acute intracranial pathology. No masses are identified. Kem Bettencourt MD Chest X-Ray [id number]/[id number] Signed Impressions: Service Date/Time: Sunday, August 27, 2017 14:27 - CONCLUSION: 1. No acute cardiopulmonary disease. Kem Bettencourt MD Chest CT [id number]/27/171432 Signed Impressions: Service Date/Time: Sunday, August 27, 2017 14:59 - CONCLUSION: 1. No evidence of acute thoracic abnormality. No masses are identified. Kem Bettencourt MD Cervical Spine CT [id number]/[id number] Signed Impressions: Service Date/Time: Sunday, August 27, 2017 14:39 - CONCLUSION: 1. Unstable fracture the cervical spine with fracture subluxation at C6-C7 and 9 mm of subluxation. 2. There is facet fracture on the right side which is perched on the apex of the right C7 facet. 3. On the left side there is complete facet jump Kem Bettencourt MD Abdomen/Pelvis CT [id number]/[id number] Signed Impressions: Service Date/Time: Sunday, August 27, 2017 14:53 - CONCLUSION: 1. No evidence of acute abdominal or pelvic process. No masses are identified. Kem Bettencourt MD Objective Remarks LUE: . Elbow motion 20-120 degrees. full sensation to median nerve over thumb. No sensation to the index finger. no sensation to ulnar nerve. slight flexion of fingers. No extension of wrist or fingers RUE: full motion. no pain. nvi BLE: no motion or sensation of bilateral legs. Assessment & Plan Assessment and Plan 1) Left Elbow Dislocation s/p Reduction -NWB -Discontinue splint and placed into cradle sling Occupational therapy for passive and active range of motion of shoulder elbow wrist and fingers Order x-rays today of elbow and wrist at 12:00 2) Left Ulnar Nerve Injury -will monitor. -likely stretched from dislocation. 3) Spinal Cord lesion with cervical spine fx -neruo managing. Jared Mata Jr. Sep 13, 2017 06:52
[2017-09-13 08:00] VITALS: BP 94/55; PULSE 58; RESP 17; TEMP 95.5; O2SAT 97
--- NOTE | 2017-09-13 08:18 | HHI.PR ---
Neuropsych Behavior Behavior: Intact: Coping/Acceptance, Cooperative w/ Treatment, Motivation, Frustration Tolerance/[place] Cognitive Cognitive: Intact: Cognitive, Attention/Concentration, Confused/Orientation, Insight/Awareness, Judgement/Problem-Solving, Memory Psychosocial Psychosocial: Mild: Psychosocial, Family/Other Adjustment, Realistic Expectation, Unable to Asses: Self-Esteem/Confidence Progress Notes/Response to Tx Contents of Sessions: Adjustment Time with Patient: 15 minutes Premorbid psychological status Premorbid Cognitive, Emotional and Behavioral Status: Stable. The patient has high school years of education and a solid work history prior to this injury. He had just moved to [place] from [place] two weeks prior. The patient has no prior psychiatric difficulties, as described above. Substance abuse history is unremarkable. Behavioral Reactions of Patient and Family/Support System: Stable. The patient s family is experiencing ongoing issues of adjustment given the nature of the injury, and this aspect of recovery will require ongoing monitoring. Emotional/Behavioral Status of Patient and Family/Support System: Stable. Pertinent issues, if appropriate to this patients clinical care, are described in detail above. Maximizing acute care outcome It is recommended that the patient be monitored for emergent emotional reactivity as the medical condition evolves. This patients neuropathological challenges may limit his rehabilitation potential going forward, and these challenges will require specialized therapeutic skills to maximize outcome. Additionally, the patients family is experiencing ongoing issues of adjustment given the traumatic nature of the injury, and they may benefit from ongoing psychological assistance. At this point in the recovery process, the patient does have cognitive capacity as the patient is able to understand a situation and its likely consequences, and he is able to manipulate information rationally. Cognitive capacity will be assessed throughout the recovery process. I will follow this patient throughout his acute care stay for adjustment issues. As an adjunct to his emotional stability and pain control, consider starting Cymbalta 30 BID, unless medically contraindicated. Anticipated Problems Ongoing areas of concern will include psychological adjustment, which is expected to improve with time and treatment. Given the severity of the patient's injuries it is my clinical opinion that this patient will be unable to return to any type of productive employment for at least one year, perhaps longer and likely never. Treatment Plan This clinician will continue to follow with you throughout the course of this patients acute care treatment, and I will be available to meet with the patient s family/support system to facilitate their understanding and the ongoing care of their family member. The goals of neuropsychological intervention shall be both educational and supportive to the family/support system as is deemed clinically appropriate. Impression This is a 31 year old man s/p [place] [facility] [facility] [place] is being followed for emotional adjustment following a spinal cord injury. Diagnosis: (1) Adjustment disorder with anxiety Status: Acute Progress Note Narrative Ongoing follow-up of patient seen during daily trauma rounds. This is day 17 post injury. The patient reported issues of leg twitching yesterday that was interfering with sleep. His Cymbalta dose was changed to 30 BID due to complaints of over sedation, and after consultation with Dr. Castro. He remains on Clonazepam 0.5 qD. He is stable and clear for discharge. I will continue to follow. Americo Levine PhD Sep 13, 2017 8:18 am
[2017-09-13] MEDS: ENOXAPARIN SODIUM 30 MG/0.3 ML SYRINGE SQ SCH ×2 (09:12→23:43)
[2017-09-13] MEDS: LIDOCAINE HCL 5% PATCH T-DERMAL SCH (09:12)
[2017-09-13] MEDS: ACETAMINOPHEN 325 MG TAB PO PRN (09:12)
[2017-09-13] MEDS: BACITRACIN TOP OINT 15 GM TUBE TOPICAL SCH ×2 (09:13→20:35)
[2017-09-13] MEDS: DOCUSATE SODIUM 50 MG/SENNA 8.6 MG TAB PO SCH ×2 (09:13→20:34)
[2017-09-13] MEDS: PANTOPRAZOLE SOD 40 MG DELAYED RELEASE TAB PO SCH (09:13)
[2017-09-13] MEDS: clonazePAM 0.5 MG TAB PO SCH ×2 (09:13→20:34)
[2017-09-13] MEDS: DULoxetine HCl DR 30 MG CAP PO SCH ×2 (09:13→20:34)
[2017-09-13] MEDS: LACTULOSE SYRUP 20 GM/30 ML CUP PO SCH (09:14)
[2017-09-13 12:00] VITALS: BP 96/50; PULSE 57; RESP 17; TEMP 95.2; O2SAT 97
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
--- NOTE | 2017-09-13 13:18 | HHI.PYPN ---
Subjective Remarks Patient was seen today for psychiatric reevaluation. Case was also discussed with nurse in charge. Documentation review. Patient was seen in morning hours. On psychiatric evaluation patient is found calm, cooperative, he immediately recognized me from our previous interview. He reports feeling in peace, with good mood, motivated to get better, to continue the medical recommendations and taking his medications. He denies depressive symptoms, he reports that his anxiety is completely under control, good sleep at night, good level of concentration. He says "I am surprised how good I am doing given the situation". Patient is fully oriented 3, no fluctuation of consciousness, no attention deficit present. Review of Systems Except as stated in HPI: all other systems reviewed are Neg Mental Status Examination Appearance: Appropriate Consciousness: Alert Orientation: x4 Motor Activity: Normal gait Speech: Unremarkable Language: Adequate Fund of Knowledge: Adequate Attention and Concentration: Adequate Memory: Unremarkable Mood: Appropriate Affect: Appropriate Thought Process & Associations: Intact Thought Content: Appropriate Hallucination Type: None Delusion Type: None Suicidal Ideation: No Suicidal Plan: No Suicidal Intention: No Homicidal Ideation: No Homicidal Plan: No Homicidal Intention: No Insight: Adequate Judgment: Adequate Results Labs Date/Time Source Procedure Growth Status 09/07/17 19:30 Urine Catheterized Urine Urine Culture - Final NO GROWTH IN 48 HOURS. Complete Vitals/IOs Vital Signs Date Time Temp Pulse Resp B/P (MAP) Pulse Ox O2 Delivery O2 Flow Rate FiO2 09/13/17 12:00 95.2 57 17 96/50 (65) 97 Intake and Output 09/13/17 09/13/17 09/14/17 08:00 16:00 00:00 Intake Total 240 ml Output Total 650 ml Balance -410 ml Assessment & Plan Problem List: (1) Adjustment disorder with mixed anxiety and depressed mood ICD Codes: F43.23 - Adjustment disorder with mixed anxiety and depressed mood Assessment & Plan: Continue current psychotropic regimen. Extensive psychoeducation and breast supportive psychotherapy provided. Assessment & Plan Estimated LOS: days Justification for Cont. Inpt. No indication for psychiatric admission. Antoni Castro MD Sep 13, 2017 13:18
[2017-09-13] MEDS: ACETAMINOPHEN/HYDROcodone 325 MG/5 MG TAB PO PRN (15:20)
[2017-09-13 16:00] VITALS: BP 99/53; PULSE 56; RESP 17; TEMP 95.4; O2SAT 97
[2017-09-13 19:50] VITALS: BP 93/50; PULSE 63; RESP 17; TEMP 97; O2SAT 98
[2017-09-13] MEDS: REMOVE OLD LIDOCAINE PATCH T-DERMAL SCH (20:35)
[2017-09-14 00:07] VITALS: BP 109/54; PULSE 61; RESP 17; TEMP 96.8; O2SAT 96
[2017-09-14] MEDS: ACETAMINOPHEN/HYDROcodone 325 MG/5 MG TAB PO PRN ×2 (02:59→10:13)
[2017-09-14 04:10] VITALS: BP 102/50; PULSE 72; RESP 17; TEMP 97.3; O2SAT 96
[2017-09-14] MEDS: BACLOFEN 10 MG TAB PO SCH ×3 (05:47→22:56)
[2017-09-14 08:00] VITALS: BP 110/59; PULSE 70; RESP 17; TEMP 97.4; O2SAT 96
--- NOTE | 2017-09-14 08:24 | HHI.PR ---
Neuropsych Emotional Emotional: Intact: Anxious/Fearful, Depressed/Sad Behavior Behavior: Intact: Coping/Acceptance, Cooperative w/ Treatment, Motivation, Frustration Tolerance/[place], Impulsive/Agitated Cognitive Cognitive: Intact: Cognitive, Attention/Concentration, Confused/Orientation, Insight/Awareness, Judgement/Problem-Solving, Memory Progress Notes/Response to Tx Contents of Sessions: Level of Consciousness Time with Patient: 15 minutes Premorbid psychological status Premorbid Cognitive, Emotional and Behavioral Status: Stable. The patient has high school years of education and a solid work history prior to this injury. He had just moved to [place] from [place] two weeks prior. The patient has no prior psychiatric difficulties, as described above. Substance abuse history is unremarkable. Behavioral Reactions of Patient and Family/Support System: Stable. The patient s family is experiencing ongoing issues of adjustment given the nature of the injury, and this aspect of recovery will require ongoing monitoring. Emotional/Behavioral Status of Patient and Family/Support System: Stable. Pertinent issues, if appropriate to this patients clinical care, are described in detail above. Maximizing acute care outcome It is recommended that the patient be monitored for emergent emotional reactivity as the medical condition evolves. This patients neuropathological challenges may limit his rehabilitation potential going forward, and these challenges will require specialized therapeutic skills to maximize outcome. Additionally, the patients family is experiencing ongoing issues of adjustment given the traumatic nature of the injury, and they may benefit from ongoing psychological assistance. At this point in the recovery process, the patient does have cognitive capacity as the patient is able to understand a situation and its likely consequences, and he is able to manipulate information rationally. Cognitive capacity will be assessed throughout the recovery process. I will follow this patient throughout his acute care stay for adjustment issues. As an adjunct to his emotional stability and pain control, consider starting Cymbalta 30 BID, unless medically contraindicated. Anticipated Problems Ongoing areas of concern will include psychological adjustment, which is expected to improve with time and treatment. Given the severity of the patient's injuries it is my clinical opinion that this patient will be unable to return to any type of productive employment for at least one year, perhaps longer and likely never. Treatment Plan This clinician will continue to follow with you throughout the course of this patients acute care treatment, and I will be available to meet with the patient s family/support system to facilitate their understanding and the ongoing care of their family member. The goals of neuropsychological intervention shall be both educational and supportive to the family/support system as is deemed clinically appropriate. Impression This is a 31 year old man s/p SCI at C5[facility] [place] He is being followed for emotional adjustment following a spinal cord injury. Diagnosis: (1) Adjustment disorder with anxiety Status: Acute Progress Note Narrative Ongoing follow-up of patient seen during daily trauma rounds. This is day [address] Castro followed-up with patient yesterday (see his chart note), and his input is most appreciated. This patient's anxiety/depression appears well controlled. He remains on Cymbalta 30 BID and clonazepam 0.5 qD. I will continue to follow. Americo Levine PhD Sep 14, 2017 8:24 am
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
[2017-09-14] MEDS: clonazePAM 0.5 MG TAB PO SCH ×2 (09:07→19:52)
[2017-09-14] MEDS: PANTOPRAZOLE SOD 40 MG DELAYED RELEASE TAB PO SCH (09:07)
[2017-09-14] MEDS: DULoxetine HCl DR 30 MG CAP PO SCH ×2 (09:07→19:52)
[2017-09-14] MEDS: LIDOCAINE HCL 5% PATCH T-DERMAL SCH (09:07)
[2017-09-14] MEDS: LACTULOSE SYRUP 20 GM/30 ML CUP PO SCH (09:08)
[2017-09-14] MEDS: BACITRACIN TOP OINT 15 GM TUBE TOPICAL SCH ×2 (09:08→19:53)
[2017-09-14] MEDS: DOCUSATE SODIUM 50 MG/SENNA 8.6 MG TAB PO SCH ×2 (09:08→19:52)
[2017-09-14] MEDS: ENOXAPARIN SODIUM 30 MG/0.3 ML SYRINGE SQ SCH ×2 (10:19→22:56)
[2017-09-14 12:00] VITALS: BP 116/59; PULSE 79; RESP 17; TEMP 97.1; O2SAT 96
[2017-09-14 16:00] VITALS: BP 109/54; PULSE 67; RESP 17; TEMP 95.7; O2SAT 96
[2017-09-14] MEDS: REMOVE OLD LIDOCAINE PATCH T-DERMAL SCH (19:52)
[2017-09-14 20:35] VITALS: BP 120/58; PULSE 60; RESP 17; TEMP 96.8; O2SAT 97
[2017-09-15 00:32] VITALS: BP 121/61; PULSE 64; RESP 18; TEMP 96.2; O2SAT 96
[2017-09-15] MEDS: BACLOFEN 10 MG TAB PO SCH ×3 (05:35→23:20)
[2017-09-15] MEDS: ACETAMINOPHEN 325 MG TAB PO PRN ×2 (05:36→23:20)
[2017-09-15 07:56] VITALS: BP 109/65; PULSE 70; RESP 17; TEMP 98; O2SAT 97
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
[2017-09-15] MEDS: DULoxetine HCl DR 30 MG CAP PO SCH ×2 (08:52→21:00)
[2017-09-15] MEDS: LACTULOSE SYRUP 20 GM/30 ML CUP PO SCH (08:52)
[2017-09-15] MEDS: DOCUSATE SODIUM 50 MG/SENNA 8.6 MG TAB PO SCH ×2 (08:52→21:00)
[2017-09-15] MEDS: clonazePAM 0.5 MG TAB PO SCH ×2 (08:52→23:20)
[2017-09-15] MEDS: PANTOPRAZOLE SOD 40 MG DELAYED RELEASE TAB PO SCH (08:52)
[2017-09-15] MEDS: BACITRACIN TOP OINT 15 GM TUBE TOPICAL SCH ×2 (08:53→23:24)
[2017-09-15] MEDS: LIDOCAINE HCL 5% PATCH T-DERMAL SCH (08:53)
[2017-09-15 12:00] VITALS: BP 115/58; PULSE 71; RESP 17; TEMP 97.9; O2SAT 97
[2017-09-15] MEDS: ENOXAPARIN SODIUM 30 MG/0.3 ML SYRINGE SQ SCH ×2 (12:13→23:21)
--- NOTE | 2017-09-15 14:38 | PD.WCN.NOT ---
Wound Consult Description: Wound consult ordered by Maryann Saenz Communicated with: Aisha AN 6 , Santhosh SNOW Recommendation: 1) Avoid prolong wear of SCD 2) Apply Calazime to Right Lateral Malleolus BID 3) Skin prep Right lateral blister and DTI BID Additional Information: Patient was seen today on 6 by conventional mortgage underwriter for Right ankle wound /blister care.Patient alert in bed upon arrival denies any pain at this time.Halo pin site clean with no signs or symptoms of infection.Assessment of Right lower extremity finds a Pressure injury to Right lateral malleolus measuring 1.8cm x 1.5cm 0.2cm with erythema noted ~0.5cm circumferential.Wound base is pink no odor or drainage noted.Periwound intact wound margines even.Calazime applied in thick layer. Right Lateral foot present with a intact roofed bulla measuring 1.6cm x 0.6cm no drainage,odor noted periwound unremarkable.Healing DTI noted to lateral dorsal foot measuring ~4.0cm x ~0.5cm. All wounds cleansed with normal saline pat dry .Skin prep applied x2.Lower extremities floated on towels avoiding contact with mattress. Lorelei Rawls [facility] Sep 15, 2017 14:38
[2017-09-15 16:00] VITALS: BP 111/64; PULSE 78; RESP 17; TEMP 97.2; O2SAT 95
[2017-09-15 20:45] VITALS: BP 121/68; PULSE 68; RESP 17; TEMP 96.9; O2SAT 96
[2017-09-15] MEDS: REMOVE OLD LIDOCAINE PATCH T-DERMAL SCH (21:00)
[2017-09-16] MEDS: BACLOFEN 10 MG TAB PO SCH ×3 (06:00→22:14)
[2017-09-16 08:00] VITALS: BP 113/68; PULSE 58; RESP 18; TEMP 95.7; O2SAT 94
[2017-09-16] MEDS: DOCUSATE SODIUM 50 MG/SENNA 8.6 MG TAB PO SCH ×2 (09:00→20:28)
[2017-09-16] MEDS: LACTULOSE SYRUP 20 GM/30 ML CUP PO SCH (09:00)
[2017-09-16] MEDS: ENOXAPARIN SODIUM 30 MG/0.3 ML SYRINGE SQ SCH ×2 (10:10→22:14)
[2017-09-16] MEDS: LIDOCAINE HCL 5% PATCH T-DERMAL SCH (10:10)
[2017-09-16] MEDS: PANTOPRAZOLE SOD 40 MG DELAYED RELEASE TAB PO SCH (10:11)
[2017-09-16] MEDS: clonazePAM 0.5 MG TAB PO SCH ×2 (10:11→20:27)
[2017-09-16] MEDS: DULoxetine HCl DR 30 MG CAP PO SCH ×2 (10:11→20:27)
[2017-09-16] MEDS: BACITRACIN TOP OINT 15 GM TUBE TOPICAL SCH ×2 (10:15→20:28)
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
[2017-09-16] MEDS: ACETAMINOPHEN 325 MG TAB PO PRN (16:14)
[2017-09-16 20:00] VITALS: BP 112/56; PULSE 63; RESP 17; TEMP 96.1; O2SAT 95
[2017-09-16] MEDS: REMOVE OLD LIDOCAINE PATCH T-DERMAL SCH (20:28)
[2017-09-17] MEDS: BACLOFEN 10 MG TAB PO SCH ×3 (05:57→22:05)
[2017-09-17] MEDS: ACETAMINOPHEN 325 MG TAB PO PRN ×2 (05:59→22:05)
[2017-09-17 08:00] VITALS: BP 98/57; PULSE 62; RESP 18; TEMP 95.3; O2SAT 96
[2017-09-17] MEDS: DOCUSATE SODIUM 50 MG/SENNA 8.6 MG TAB PO SCH ×2 (09:00→19:53)
[2017-09-17] MEDS: LIDOCAINE HCL 5% PATCH T-DERMAL SCH (09:13)
[2017-09-17] MEDS: clonazePAM 0.5 MG TAB PO SCH ×2 (09:13→19:54)
[2017-09-17] MEDS: DULoxetine HCl DR 30 MG CAP PO SCH ×2 (09:13→19:54)
[2017-09-17] MEDS: PANTOPRAZOLE SOD 40 MG DELAYED RELEASE TAB PO SCH (09:13)
[2017-09-17] MEDS: LACTULOSE SYRUP 20 GM/30 ML CUP PO SCH (09:16)
[2017-09-17] MEDS: BACITRACIN TOP OINT 15 GM TUBE TOPICAL SCH ×2 (09:17→19:57)
[2017-09-17] MEDS: ENOXAPARIN SODIUM 30 MG/0.3 ML SYRINGE SQ SCH ×2 (14:07→22:05)
[2017-09-17 19:53] VITALS: BP 117/61; PULSE 71; RESP 18; TEMP 96.7; O2SAT 97
[2017-09-17] MEDS: REMOVE OLD LIDOCAINE PATCH T-DERMAL SCH (19:57)
[2017-09-18] MEDS: BACLOFEN 10 MG TAB PO SCH ×3 (06:03→22:51)
--- NOTE | 2017-09-18 06:51 | PD.ORT.PN ---
Subjective Subjective Remarks Stable no changes Objective Vitals Vital Signs Date Time Temp Pulse Resp B/P (MAP) Pulse Ox O2 Delivery O2 Flow Rate FiO2 09/17/17 19:53 96.7 71 18 117/61 (79) 97 09/17/17 08:00 95.3 62 18 98/57 (71) 96 I/O 09/17/17 09/17/17 09/17/17 09/18/17 09/18/17 09/18/17 07:00 15:00 23:00 07:00 15:00 23:00 Intake Total 600 ml 480 ml 480 ml Output Total 800 ml 1850 ml 375 ml Balance -200 ml -1370 ml 105 ml Intake Oral 600 ml 480 ml 480 ml Output Urine Total 800 ml 1850 ml 375 ml # Bowel Movements 1 0 0 Imaging Last 72 hours Impressions Wrist X-Ray 09/11/17 1200 Signed Impressions: Service Date/Time: Monday, September 11, 2017 12:26 - CONCLUSION: 1. No acute fracture or joint dislocation. The carpal bones are grossly unremarkable. 2. Old healed fractures involving the third fourth metacarpals. Vega Carmichael MD Elbow X-Ray 09/11/17 1200 Signed Impressions: Service Date/Time: Monday, September 11, 2017 12:30 - CONCLUSION: 1. There is a small sliver of cortical bone adjacent to the lateral humeral condyle. This could be a cortical avulsion injury of unknown age. Recommend correlation with point tenderness in this location. 2. Otherwise, the rest of bony structures are intact with no other definite acute fracture or joint dislocation. No definite joint effusion. Vega Carmichael MD Last 24 hours Impressions Chest X-Ray 08/28/17 0000 Signed Impressions: Service Date/Time: Monday, August 28, 2017 04:22 - CONCLUSION: 1. Left basilar atelectasis Kem Bettencourt MD Thoracic Spine CT 08/27/17 1433 Signed Impressions: Service Date/Time: Sunday, August 27, 2017 14:53 - CONCLUSION: Unremarkable examination of the thoracic spine. No evidence of fracture. Kem Bettencourt MD Pelvis X-Ray 08/27/17 1433 Signed Impressions: Service Date/Time: Sunday, August 27, 2017 14:27 - CONCLUSION: 1. Limited examination but no fractures identified Kem Bettencourt MD Lumbar Spine CT [id number]/27/[id number] Signed Impressions: Service Date/Time: Sunday, August 27, 2017 14:53 - CONCLUSION: 1. Kem Bettencourt MD Head CT [id number]/[id number] Signed Impressions: Service Date/Time: Sunday, August 27, 2017 14:39 - CONCLUSION: 1. No evidence of acute intracranial pathology. No masses are identified. Kem Bettencourt MD Chest X-Ray [id number] Signed Impressions: Service Date/Time: Sunday, August 27, 2017 14:27 - CONCLUSION: 1. No acute cardiopulmonary disease. Kem Bettencourt MD Chest CT [id number]/27/171432 Signed Impressions: Service Date/Time: Sunday, August 27, 2017 14:59 - CONCLUSION: 1. No evidence of acute thoracic abnormality. No masses are identified. Kem Bettencourt MD Cervical Spine CT [id number]/[id number] Signed Impressions: Service Date/Time: Sunday, August 27, 2017 14:39 - CONCLUSION: 1. Unstable fracture the cervical spine with fracture subluxation at C6-C7 and 9 mm of subluxation. 2. There is facet fracture on the right side which is perched on the apex of the right C7 facet. 3. On the left side there is complete facet jump Kem Bettencourt MD Abdomen/Pelvis CT [id number]/[id number] Signed Impressions: Service Date/Time: Sunday, August 27, 2017 14:53 - CONCLUSION: 1. No evidence of acute abdominal or pelvic process. No masses are identified. Kem Bettencourt MD Objective Remarks LUE: . Elbow motion 20-120 degrees. full sensation to median nerve over thumb. No sensation to the index finger. no sensation to ulnar nerve. slight flexion of fingers. No extension of wrist or fingers. Is beginning to develop contractures of fingers RUE: No pain with shoulder elbow range of motion. 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 Assessment & Plan Assessment and Plan 1) Left Elbow Dislocation s/p Reduction -NWB -Discontinue splint and placed into cradle sling Occupational therapy for passive and active range of motion of shoulder elbow wrist and fingers bilateral extremities 2) Left Ulnar Nerve Injury -will monitor. -likely stretched from dislocation. 3) Spinal Cord lesion with cervical spine fx -neruo managing. Jared Mata Jr. INDERJIT Sep 18, 2017 06:51
[2017-09-18 08:00] VITALS: BP 119/69; PULSE 67; RESP 18; TEMP 96.9; O2SAT 94
--- NOTE | 2017-09-18 08:26 | HHI.PR ---
Neuropsych Emotional Emotional: Intact: Anxious/Fearful, Depressed/Sad Behavior Behavior: Intact: Coping/Acceptance, Cooperative w/ Treatment, Motivation, Frustration Tolerance/Julian, Impulsive/Agitated Progress Notes/Response to Tx Contents of Sessions: Adjustment, Level of Consciousness Time with Patient: 15 minutes Premorbid psychological status Premorbid Cognitive, Emotional and Behavioral Status: Stable. The patient has high school years of education and a solid work history prior to this injury. He had just moved to [place] from [place] two weeks prior. The patient has no prior psychiatric difficulties, as described above. Substance abuse history is unremarkable. Behavioral Reactions of Patient and Family/Support System: Stable. The patient s family is experiencing ongoing issues of adjustment given the nature of the injury, and this aspect of recovery will require ongoing monitoring. Emotional/Behavioral Status of Patient and Family/Support System: Stable. Pertinent issues, if appropriate to this patients clinical care, are described in detail above. Maximizing acute care outcome It is recommended that the patient be monitored for emergent emotional reactivity as the medical condition evolves. This patients neuropathological challenges may limit his rehabilitation potential going forward, and these challenges will require specialized therapeutic skills to maximize outcome. Additionally, the patients family is experiencing ongoing issues of adjustment given the traumatic nature of the injury, and they may benefit from ongoing psychological assistance. At this point in the recovery process, the patient does have cognitive capacity as the patient is able to understand a situation and its likely consequences, and he is able to manipulate information rationally. Cognitive capacity will be assessed throughout the recovery process. I will follow this patient throughout his acute care stay for adjustment issues. As an adjunct to his emotional stability and pain control, consider starting Cymbalta 30 BID, unless medically contraindicated. Anticipated Problems Ongoing areas of concern will include psychological adjustment, which is expected to improve with time and treatment. Given the severity of the patient's injuries it is my clinical opinion that this patient will be unable to return to any type of productive employment for at least one year, perhaps longer and likely never. Treatment Plan This clinician will continue to follow with you throughout the course of this patients acute care treatment, and I will be available to meet with the patient s family/support system to facilitate their understanding and the ongoing care of their family member. The goals of neuropsychological intervention shall be both educational and supportive to the family/support system as is deemed clinically appropriate. Impression This is a 31 year old man s/p SCI at C5-6 2T [facility]. He is being followed for emotional adjustment following a spinal cord injury. Diagnosis: (1) Adjustment disorder with anxiety Status: Acute Progress Note Narrative Day 22 post injury. The patient remains neurobehaviorally stable. He is on Cymbalta 30 BID and clonazepam 0.5 qD. However, now he is refusing his medications, stating that the HS Cymbalta dose interferes with his sleep. I will follow. Americo Levine PhD Sep 18, 2017 8:26 am
[2017-09-18] MEDS: DULoxetine HCl DR 30 MG CAP PO SCH ×2 (09:00→21:00)
[2017-09-18] MEDS: LACTULOSE SYRUP 20 GM/30 ML CUP PO SCH (09:00)
[2017-09-18] MEDS: clonazePAM 0.5 MG TAB PO SCH ×2 (10:45→22:50)
[2017-09-18] MEDS: PANTOPRAZOLE SOD 40 MG DELAYED RELEASE TAB PO SCH (10:45)
[2017-09-18] MEDS: ACETAMINOPHEN 325 MG TAB PO PRN ×2 (10:46→22:51)
[2017-09-18] MEDS: LIDOCAINE HCL 5% PATCH T-DERMAL SCH (10:46)
[2017-09-18] MEDS: DOCUSATE SODIUM 50 MG/SENNA 8.6 MG TAB PO SCH ×2 (10:46→21:00)
[2017-09-18 13:23] VITALS: O2SAT 95
[2017-09-18] MEDS: ENOXAPARIN SODIUM 30 MG/0.3 ML SYRINGE SQ SCH ×2 (13:50→22:51)
[2017-09-18] MEDS: BACITRACIN TOP OINT 15 GM TUBE TOPICAL SCH ×2 (13:51→22:52)
[2017-09-18] MEDS: REMOVE OLD LIDOCAINE PATCH T-DERMAL SCH (22:51)
[2017-09-18 23:00] VITALS: BP_SYST 105; BP_SYST 150; BP_DIAS 64; BP_DIAS 74; PULSE 74; PULSE 81; RESP 17; TEMP 97; TEMP 98.6; O2SAT 94; O2SAT 95
[2017-09-19] MEDS: BACLOFEN 10 MG TAB PO SCH ×3 (05:39→23:00)
[2017-09-19] MEDS: ACETAMINOPHEN 325 MG TAB PO PRN ×2 (06:07→17:01)
[2017-09-19 07:51] VITALS: BP 111/62; PULSE 72; RESP 18; TEMP 96.8; O2SAT 94
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
[2017-09-19] MEDS: LACTULOSE SYRUP 20 GM/30 ML CUP PO SCH (08:43)
[2017-09-19] MEDS: PANTOPRAZOLE SOD 40 MG DELAYED RELEASE TAB PO SCH (08:45)
[2017-09-19] MEDS: clonazePAM 0.5 MG TAB PO SCH ×2 (08:45→23:00)
[2017-09-19] MEDS: DULoxetine HCl DR 30 MG CAP PO SCH (08:45)
[2017-09-19] MEDS: DOCUSATE SODIUM 50 MG/SENNA 8.6 MG TAB PO SCH ×2 (08:45→21:00)
[2017-09-19] MEDS: LIDOCAINE HCL 5% PATCH T-DERMAL SCH (08:45)
[2017-09-19] MEDS: ENOXAPARIN SODIUM 30 MG/0.3 ML SYRINGE SQ SCH ×2 (11:00→22:59)
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
[2017-09-19] MEDS: BACITRACIN TOP OINT 15 GM TUBE TOPICAL SCH ×2 (13:50→21:00)
[2017-09-19 20:35] VITALS: BP 102/58; PULSE 67; RESP 17; TEMP 96.8; O2SAT 97
[2017-09-19] MEDS: REMOVE OLD LIDOCAINE PATCH T-DERMAL SCH (21:00)
[2017-09-20] MEDS: BACLOFEN 10 MG TAB PO SCH ×3 (06:09→22:50)
[2017-09-20 07:45] VITALS: BP 114/69; PULSE 63; RESP 19; TEMP 95.5; O2SAT 94
[2017-09-20] MEDS: LIDOCAINE HCL 5% PATCH T-DERMAL SCH (07:59)
[2017-09-20] MEDS: clonazePAM 0.5 MG TAB PO SCH ×2 (07:59→22:50)
[2017-09-20] MEDS: DOCUSATE SODIUM 50 MG/SENNA 8.6 MG TAB PO SCH ×2 (07:59→22:50)
[2017-09-20] MEDS: PANTOPRAZOLE SOD 40 MG DELAYED RELEASE TAB PO SCH (07:59)
[2017-09-20] MEDS: BACITRACIN TOP OINT 15 GM TUBE TOPICAL SCH ×2 (08:00→22:51)
[2017-09-20] MEDS: DULoxetine HCl DR 30 MG CAP PO SCH (08:00)
--- NOTE | 2017-09-20 08:12 | HHI.PR ---
Neuropsych Emotional Emotional: Intact: Anxious/Fearful, Depressed/Sad Behavior Behavior: Intact: Coping/Acceptance, Cooperative w/ Treatment, Motivation, Frustration Tolerance/[place] Cognitive Cognitive: Intact: Cognitive, Attention/Concentration, Confused/Orientation, Insight/Awareness, Judgement/Problem-Solving, Memory Psychosocial Psychosocial: Intact: Self-Esteem/Confidence, Moderate: Psychosocial, Family/ Other Adjustment, Realistic Expectation Progress Notes/Response to Tx Contents of Sessions: Adjustment, Level of Consciousness Time with Patient: 15 minutes Premorbid psychological status Premorbid Cognitive, Emotional and Behavioral Status: Stable. The patient has high school years of education and a solid work history prior to this injury. He had just moved to [place] from [place] two weeks prior. The patient has no prior psychiatric difficulties, as described above. Substance abuse history is unremarkable. Behavioral Reactions of Patient and Family/Support System: Stable. The patient s family is experiencing ongoing issues of adjustment given the nature of the injury, and this aspect of recovery will require ongoing monitoring. Emotional/Behavioral Status of Patient and Family/Support System: Stable. Pertinent issues, if appropriate to this patients clinical care, are described in detail above. Maximizing acute care outcome It is recommended that the patient be monitored for emergent emotional reactivity as the medical condition evolves. This patients neuropathological challenges may limit his rehabilitation potential going forward, and these challenges will require specialized therapeutic skills to maximize outcome. Additionally, the patients family is experiencing ongoing issues of adjustment given the traumatic nature of the injury, and they may benefit from ongoing psychological assistance. At this point in the recovery process, the patient does have cognitive capacity as the patient is able to understand a situation and its likely consequences, and he is able to manipulate information rationally. Cognitive capacity will be assessed throughout the recovery process. I will follow this patient throughout his acute care stay for adjustment issues. As an adjunct to his emotional stability and pain control, consider starting Cymbalta 30 BID, unless medically contraindicated. Anticipated Problems Ongoing areas of concern will include psychological adjustment, which is expected to improve with time and treatment. Given the severity of the patient's injuries it is my clinical opinion that this patient will be unable to return to any type of productive employment for at least one year, perhaps longer and likely never. Treatment Plan This clinician will continue to follow with you throughout the course of this patients acute care treatment, and I will be available to meet with the patient s family/support system to facilitate their understanding and the ongoing care of their family member. The goals of neuropsychological intervention shall be both educational and supportive to the family/support system as is deemed clinically appropriate. Impression This is a 31 year old man s/p SCI at C5-6 2T [facility] [place]. He is being followed for emotional adjustment following a spinal cord injury. Diagnosis: (1) Adjustment disorder with anxiety Status: Acute Progress Note Narrative This is day 24 post injury. The patient remains neurobehaviorally stable. His Cymbalta was changed to 30 qD, from 30 BID, with Dr. Castro's input. He is also continuing Klonopin 0.5 BID. Present barriers to discharge are transfer back to [place]. I will follow. Americo Levine PhD Sep 20, 2017 8:12 am
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
[2017-09-20] MEDS: ENOXAPARIN SODIUM 30 MG/0.3 ML SYRINGE SQ SCH ×2 (11:54→22:49)
[2017-09-20] MEDS: ACETAMINOPHEN 325 MG TAB PO PRN (11:57)
[2017-09-20] MEDS: REMOVE OLD LIDOCAINE PATCH T-DERMAL SCH (22:56)
[2017-09-20 22:58] VITALS: BP 102/59; PULSE 70; RESP 18; TEMP 97.8; O2SAT 96
[2017-09-21 04:52] LABS: BICARBONATE 27.5 MEQ/L (21.0-32.0); CALCIUM 8.9 MG/DL (8.5-10.1); CREATININE 0.73 MG/DL (0.60-1.30)
[2017-09-21 05:59] LABS: AUTOMATED NEUTROPHIL # 4.4 TH/MM3 (1.8-7.7); BASOPHIL # 0.1 TH/MM3 (0-0.2); BASOPHIL % 0.7 % (0.0-2.0); EOSINOPHIL # 0.4 TH/MM3 (0-0.4); EOSINOPHIL % 5.6 % (0.0-4.0); LYMPH % 30.2 % (9.0-44.0); LYMPHOCYTE # 2.4 TH/MM3 (1.0-4.8); MEAN CELL VOLUME 96.3 FL (80.0-100.0); MEAN CORPUSCULAR HEMOGLOBIN 32.9 PG (27.0-34.0); MEAN CORPUSCULAR HGB CONC 34.1 % (32.0-36.0); MONO % 7.8 % (0.0-8.0); MONOCYTE # 0.6 TH/MM3 (0-0.9); NEUT % 55.7 % (16.0-70.0); PLATELET COUNT 186 TH/MM3 (150-450); RED BLOOD COUNT 4.26 MIL/MM3 (4.50-5.90); RED CELL DISTRIBUTION WIDTH 13.3 % (11.6-17.2); WHITE BLOOD COUNT 7.9 TH/MM3 (4.0-11.0)
[2017-09-21] MEDS: BACLOFEN 10 MG TAB PO SCH ×3 (06:21→22:23)
[2017-09-21 07:37] VITALS: BP 122/63; PULSE 59; RESP 18; TEMP 96.7; O2SAT 97
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
[2017-09-21] MEDS: DULoxetine HCl DR 30 MG CAP PO SCH (09:02)
[2017-09-21] MEDS: LIDOCAINE HCL 5% PATCH T-DERMAL SCH (09:11)
[2017-09-21] MEDS: DOCUSATE SODIUM 50 MG/SENNA 8.6 MG TAB PO SCH ×2 (09:11→19:53)
[2017-09-21] MEDS: PANTOPRAZOLE SOD 40 MG DELAYED RELEASE TAB PO SCH (09:11)
[2017-09-21] MEDS: BACITRACIN TOP OINT 15 GM TUBE TOPICAL SCH ×2 (09:12→20:00)
[2017-09-21] MEDS: ENOXAPARIN SODIUM 30 MG/0.3 ML SYRINGE SQ SCH ×2 (09:12→22:23)
[2017-09-21] MEDS: clonazePAM 0.5 MG TAB PO SCH ×2 (09:12→19:47)
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
[2017-09-21 19:50] VITALS: BP 107/54; PULSE 81; RESP 18; TEMP 98.3; O2SAT 96
[2017-09-21] MEDS: REMOVE OLD LIDOCAINE PATCH T-DERMAL SCH (19:53)
[2017-09-22] MEDS: BACLOFEN 10 MG TAB PO SCH ×3 (05:28→20:56)
[2017-09-22 08:00] VITALS: BP 122/61; PULSE 72; RESP 17; TEMP 97.4; O2SAT 95
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
[2017-09-22] MEDS: LIDOCAINE HCL 5% PATCH T-DERMAL SCH (09:04)
[2017-09-22] MEDS: BACITRACIN TOP OINT 15 GM TUBE TOPICAL SCH ×2 (09:05→20:57)
[2017-09-22] MEDS: PANTOPRAZOLE SOD 40 MG DELAYED RELEASE TAB PO SCH (09:05)
[2017-09-22] MEDS: DOCUSATE SODIUM 50 MG/SENNA 8.6 MG TAB PO SCH ×2 (09:05→20:57)
[2017-09-22] MEDS: clonazePAM 0.5 MG TAB PO SCH ×2 (09:05→20:56)
[2017-09-22] MEDS: DULoxetine HCl DR 30 MG CAP PO SCH (09:05)
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
[2017-09-22] MEDS: ENOXAPARIN SODIUM 30 MG/0.3 ML SYRINGE SQ SCH ×2 (10:45→22:52)
[2017-09-22 20:00] VITALS: BP 104/66; PULSE 84; RESP 16; TEMP 97.7; O2SAT 97
[2017-09-22] MEDS: ACETAMINOPHEN/HYDROcodone 325 MG/5 MG TAB PO PRN (20:57)
[2017-09-22] MEDS: REMOVE OLD LIDOCAINE PATCH T-DERMAL SCH (21:00)
[2017-09-23] MEDS: BACLOFEN 10 MG TAB PO SCH ×3 (06:07→22:10)
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
[2017-09-23 07:55] VITALS: BP 113/62; PULSE 87; RESP 18; TEMP 96.9; O2SAT 95
[2017-09-23] MEDS: PANTOPRAZOLE SOD 40 MG DELAYED RELEASE TAB PO SCH (08:55)
[2017-09-23] MEDS: LIDOCAINE HCL 5% PATCH T-DERMAL SCH (08:55)
[2017-09-23] MEDS: clonazePAM 0.5 MG TAB PO SCH ×2 (08:55→20:38)
[2017-09-23] MEDS: DOCUSATE SODIUM 50 MG/SENNA 8.6 MG TAB PO SCH ×2 (08:55→20:38)
[2017-09-23] MEDS: BACITRACIN TOP OINT 15 GM TUBE TOPICAL SCH ×2 (08:56→20:38)
[2017-09-23] MEDS: ENOXAPARIN SODIUM 30 MG/0.3 ML SYRINGE SQ SCH ×2 (11:00→22:11)
[2017-09-23 20:00] VITALS: BP 113/61; PULSE 69; RESP 18; TEMP 97.1; O2SAT 95
[2017-09-23] MEDS: REMOVE OLD LIDOCAINE PATCH T-DERMAL SCH (20:39)
[2017-09-24] MEDS: BACLOFEN 10 MG TAB PO SCH ×2 (05:54→13:28)
[2017-09-24] MEDS: DOCUSATE SODIUM 50 MG/SENNA 8.6 MG TAB PO SCH ×2 (07:36→21:00)
[2017-09-24] MEDS: PANTOPRAZOLE SOD 40 MG DELAYED RELEASE TAB PO SCH (07:36)
[2017-09-24] MEDS: clonazePAM 0.5 MG TAB PO SCH (07:37)
[2017-09-24] MEDS: LIDOCAINE HCL 5% PATCH T-DERMAL SCH (07:37)
[2017-09-24] MEDS: BACITRACIN TOP OINT 15 GM TUBE TOPICAL SCH ×2 (07:38→21:00)
[2017-09-24 08:00] VITALS: BP 109/65; PULSE 65; RESP 18; TEMP 96.4; O2SAT 96
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
[2017-09-24] MEDS: ENOXAPARIN SODIUM 30 MG/0.3 ML SYRINGE SQ SCH (11:48)
[2017-09-24] MEDS: ACETAMINOPHEN 325 MG TAB PO PRN (11:49)
[2017-09-24 20:00] VITALS: BP 115/70; PULSE 67; RESP 15; TEMP 96.7; O2SAT 97
[2017-09-24] MEDS: REMOVE OLD LIDOCAINE PATCH T-DERMAL SCH (21:00)
[2017-09-25] MEDS: ENOXAPARIN SODIUM 30 MG/0.3 ML SYRINGE SQ SCH ×2 (00:06→11:12)
[2017-09-25] MEDS: clonazePAM 0.5 MG TAB PO SCH ×3 (00:06→20:22)
[2017-09-25] MEDS: BACLOFEN 10 MG TAB PO SCH ×4 (00:06→20:22)
--- NOTE | 2017-09-25 06:39 | PD.ORT.PN ---
Subjective Subjective Remarks Stable no changes Objective Vitals Vital Signs Date Time Temp Pulse Resp B/P (MAP) Pulse Ox O2 Delivery O2 Flow Rate FiO2 09/24/17 20:00 96.7 67 15 115/70 (85) 97 09/24/17 18:42 Room Air 09/24/17 12:49 16 09/24/17 08:00 96.4 65 18 109/65 (80) 96 I/O 09/24/17 09/24/17 09/24/17 09/25/17 09/25/17 09/25/17 07:00 15:00 23:00 07:00 15:00 23:00 Intake Total 480 ml 600 ml Output Total 400 ml 800 ml Balance 80 ml -200 ml Intake Oral 480 ml 600 ml Output Urine Total 400 ml 800 ml # Bowel Movements 1 Result Diagram: 09/21/17 0436 09/21/17 0415 Imaging Last 72 hours Impressions Wrist X-Ray 09/11/17 1200 Signed Impressions: Service Date/Time: Monday, September 11, 2017 12:26 - CONCLUSION: 1. No acute fracture or joint dislocation. The carpal bones are grossly unremarkable. 2. Old healed fractures involving the third fourth metacarpals. Vega Carmichael MD Elbow X-Ray 09/11/17 1200 Signed Impressions: Service Date/Time: Monday, September 11, 2017 12:30 - CONCLUSION: 1. There is a small sliver of cortical bone adjacent to the lateral humeral condyle. This could be a cortical avulsion injury of unknown age. Recommend correlation with point tenderness in this location. 2. Otherwise, the rest of bony structures are intact with no other definite acute fracture or joint dislocation. No definite joint effusion. Vega Carmichael MD Last 24 hours Impressions Chest X-Ray 08/28/17 0000 Signed Impressions: Service Date/Time: Monday, August 28, 2017 04:22 - CONCLUSION: 1. Left basilar atelectasis Kem Bettencourt MD Thoracic Spine CT 08/27/17 1433 Signed Impressions: Service Date/Time: Sunday, August 27, 2017 14:53 - CONCLUSION: Unremarkable examination of the thoracic spine. No evidence of fracture. Kem Bettencourt MD Pelvis X-Ray 08/27/17 1433 Signed Impressions: Service Date/Time: Sunday, August 27, 2017 14:27 - CONCLUSION: 1. Limited examination but no fractures identified Kem Bettencourt MD Lumbar Spine CT [id number]/27/[id number] Signed Impressions: Service Date/Time: Sunday, August 27, 2017 14:53 - CONCLUSION: 1. Kem Bettencourt MD Head CT [id number]/[id number] Signed Impressions: Service Date/Time: Sunday, August 27, 2017 14:39 - CONCLUSION: 1. No evidence of acute intracranial pathology. No masses are identified. Kem Bettencourt MD Chest X-Ray [id number]/[id number] Signed Impressions: Service Date/Time: Sunday, August 27, 2017 14:27 - CONCLUSION: 1. No acute cardiopulmonary disease. Kem Bettencourt MD Chest CT [id number]/27/171432 Signed Impressions: Service Date/Time: Sunday, August 27, 2017 14:59 - CONCLUSION: 1. No evidence of acute thoracic abnormality. No masses are identified. Kem Bettencourt MD Cervical Spine CT [id number]/[id number] Signed Impressions: Service Date/Time: Sunday, August 27, 2017 14:39 - CONCLUSION: 1. Unstable fracture the cervical spine with fracture subluxation at C6-C7 and 9 mm of subluxation. 2. There is facet fracture on the right side which is perched on the apex of the right C7 facet. 3. On the left side there is complete facet jump Kem Btetencourt MD Abdomen/Pelvis CT [id number]/27/[id number] Signed Impressions: Service Date/Time: Sunday, August 27, 2017 14:53 - CONCLUSION: 1. No evidence of acute abdominal or pelvic process. No masses are identified. Kem Bettencourt MD Objective Remarks LUE: . Elbow motion 30-120 degrees. full sensation to median nerve over thumb. No sensation to the index finger. no sensation to ulnar nerve. slight flexion of fingers. No extension of wrist or fingers. Is beginning to develop contractures of fingers RUE: No pain with shoulder elbow range of motion. 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 Assessment & Plan Assessment and Plan 1) Left Elbow Dislocation s/p Reduction -NWB Occupational therapy for passive and active range of motion of shoulder, elbow, wrist and fingers bilateral extremities. Beginning to develop further contractures of extension/flexion of fingers and wrist. 2) Left Ulnar Nerve Injury 3) Spinal Cord lesion with cervical spine fx -neruo managing. Jared Mata Jr. Sep 25, 2017 06:39
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
[2017-09-25 08:21] VITALS: BP 109/62; PULSE 68; RESP 18; TEMP 97.5; O2SAT 98
[2017-09-25] MEDS: PANTOPRAZOLE SOD 40 MG DELAYED RELEASE TAB PO SCH (08:32)
[2017-09-25] MEDS: DOCUSATE SODIUM 50 MG/SENNA 8.6 MG TAB PO SCH ×2 (08:33→20:22)
[2017-09-25] MEDS: BACITRACIN TOP OINT 15 GM TUBE TOPICAL SCH ×2 (08:33→20:25)
[2017-09-25] MEDS: LIDOCAINE HCL 5% PATCH T-DERMAL SCH (08:33)
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
[2017-09-25] MEDS: ACETAMINOPHEN 325 MG TAB PO PRN (11:12)
--- NOTE | 2017-09-25 11:44 | RADRPT ---
EXAM DATE/TIME: 09/25/2017 10:40 [facility] COMPARISON: No previous studies available for comparison. INDICATIONS : Left wrist pain. MEDICAL HISTORY : None. SURGICAL HISTORY : None. ENCOUNTER: Subsequent ACUITY: 1 month PAIN SCORE: 10/10 LOCATION: Left wrist FINDINGS: Limited exam because of inability to properly positioned. No fracture. CONCLUSION: Limited exam. No fracture. Juan Mohamud MD FACR on September 25, 2017 at 11:41 Board Certified Radiologist. This report was verified electronically.
[2017-09-25 19:23] VITALS: BP 104/52; PULSE 76; RESP 18; TEMP 96.7; O2SAT 97
[2017-09-25] MEDS: REMOVE OLD LIDOCAINE PATCH T-DERMAL SCH (20:25)
[2017-09-26] MEDS: ENOXAPARIN SODIUM 30 MG/0.3 ML SYRINGE SQ SCH ×3 (00:11→23:16)
[2017-09-26] MEDS: BACLOFEN 10 MG TAB PO SCH ×3 (06:00→20:57)
--- NOTE | 2017-09-26 06:31 | PD.ORT.PN ---
Subjective Subjective Remarks Stable no changes. Still complains about wrist pain. Objective Vitals Vital Signs Date Time Temp Pulse Resp B/P (MAP) Pulse Ox O2 Delivery O2 Flow Rate FiO2 09/25/17 21:52 Room Air 09/25/17 19:23 96.7 76 18 104/52 (69) 97 09/25/17 12:12 16 09/25/17 08:21 97.5 68 18 109/62 (78) 98 I/O 09/25/17 09/25/17 09/25/17 09/26/17 09/26/17 09/26/17 07:00 15:00 23:00 07:00 15:00 23:00 Intake Total 400 ml 900 ml Output Total 700 ml 1000 ml Balance -300 ml -100 ml Intake Oral 400 ml 900 ml Output Urine Total 700 ml 1000 ml Imaging Last 72 hours Impressions Wrist X-Ray 09/11/17 1200 Signed Impressions: Service Date/Time: Monday, September 11, 2017 12:26 - CONCLUSION: 1. No acute fracture or joint dislocation. The carpal bones are grossly unremarkable. 2. Old healed fractures involving the third fourth metacarpals. Vega Carmichael MD Elbow X-Ray 09/11/17 1200 Signed Impressions: Service Date/Time: Monday, September 11, 2017 12:30 - CONCLUSION: 1. There is a small sliver of cortical bone adjacent to the lateral humeral condyle. This could be a cortical avulsion injury of unknown age. Recommend correlation with point tenderness in this location. 2. Otherwise, the rest of bony structures are intact with no other definite acute fracture or joint dislocation. No definite joint effusion. Vega Carmichael MD Last 24 hours Impressions Chest X-Ray 08/28/17 0000 Signed Impressions: Service Date/Time: Monday, August 28, 2017 04:22 - CONCLUSION: 1. Left basilar atelectasis Kem Bettencourt MD Thoracic Spine CT 08/27/17 1433 Signed Impressions: Service Date/Time: Sunday, August 27, 2017 14:53 - CONCLUSION: Unremarkable examination of the thoracic spine. No evidence of fracture. Kem Bettencourt MD Pelvis X-Ray 08/27/17 1433 Signed Impressions: Service Date/Time: Sunday, August 27, 2017 14:27 - CONCLUSION: 1. Limited examination but no fractures identified Kem Bettencourt MD Lumbar Spine CT [id number]/27/171432 Signed Impressions: Service Date/Time: Sunday, August 27, 2017 14:53 - CONCLUSION: 1. Kem Bettencourt MD Head CT [id number]/27/171432 Signed Impressions: Service Date/Time: Sunday, August 27, 2017 14:39 - CONCLUSION: 1. No evidence of acute intracranial pathology. No masses are identified. Kme Bettencourt MD Chest X-Ray [id number]/27/171432 Signed Impressions: Service Date/Time: Sunday, August 27, 2017 14:27 - CONCLUSION: 1. No acute cardiopulmonary disease. Kem Bettencourt MD Chest CT [id number]/27/171432 Signed Impressions: Service Date/Time: Sunday, August 27, 2017 14:59 - CONCLUSION: 1. No evidence of acute thoracic abnormality. No masses are identified. Kem Bettencourt MD Cervical Spine CT [id number]/27/171432 Signed Impressions: Service Date/Time: Sunday, August 27, 2017 14:39 - CONCLUSION: 1. Unstable fracture the cervical spine with fracture subluxation at C6-C7 and 9 mm of subluxation. 2. There is facet fracture on the right side which is perched on the apex of the right C7 facet. 3. On the left side there is complete facet jump Kem Bettencourt MD Abdomen/Pelvis CT [id number]/27/171432 Signed Impressions: Service Date/Time: Sunday, August 27, 2017 14:53 - CONCLUSION: 1. No evidence of acute abdominal or pelvic process. No masses are identified. Kem Bettencourt MD Objective Remarks LUE: . Elbow motion 30-120 degrees. No sensation over median nerve sensation. Pain to palpation over lunate and with wrist motion. Significant contractures developing. Is unable to flex or extend fingers. Good distal pulses RUE: No pain with shoulder elbow range of motion. 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 Assessment & Plan Assessment and Plan 1) Left Elbow Dislocation s/p Reduction -NWB Occupational therapy for extension and flexion of elbow and pronation and supination X-rays show a lunate dislocation of wrist. Consult is been given to hand surgery for evaluation Jared Mata Jr. INDERJIT Sep 26, 2017 06:31
[2017-09-26 08:00] VITALS: BP 102/57; PULSE 68; RESP 16; TEMP 96.5; O2SAT 95
[2017-09-26] MEDS: PANTOPRAZOLE SOD 40 MG DELAYED RELEASE TAB PO SCH (09:23)
[2017-09-26] MEDS: clonazePAM 0.5 MG TAB PO SCH ×2 (09:23→20:57)
[2017-09-26] MEDS: LIDOCAINE HCL 5% PATCH T-DERMAL SCH (09:23)
[2017-09-26] MEDS: DOCUSATE SODIUM 50 MG/SENNA 8.6 MG TAB PO SCH ×2 (09:26→20:57)
[2017-09-26] MEDS: BACITRACIN TOP OINT 15 GM TUBE TOPICAL SCH ×2 (09:26→20:57)
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
[2017-09-26 20:45] VITALS: BP 118/72; PULSE 66; RESP 18; TEMP 97.4; O2SAT 98
[2017-09-26] MEDS: REMOVE OLD LIDOCAINE PATCH T-DERMAL SCH (20:58)
[2017-09-27 04:31] VITALS: O2SAT 98
[2017-09-27] MEDS: BACLOFEN 10 MG TAB PO SCH ×3 (06:27→21:49)
[2017-09-27 08:00] VITALS: BP 107/65; PULSE 67; RESP 18; TEMP 97.6; O2SAT 96
[2017-09-27] MEDS: clonazePAM 0.5 MG TAB PO SCH ×2 (09:09→21:49)
[2017-09-27] MEDS: LIDOCAINE HCL 5% PATCH T-DERMAL SCH (09:09)
[2017-09-27] MEDS: PANTOPRAZOLE SOD 40 MG DELAYED RELEASE TAB PO SCH (09:09)
[2017-09-27] MEDS: BACITRACIN TOP OINT 15 GM TUBE TOPICAL SCH ×2 (09:12→21:49)
[2017-09-27] MEDS: DOCUSATE SODIUM 50 MG/SENNA 8.6 MG TAB PO SCH ×2 (09:12→21:49)
[2017-09-27] MEDS: ENOXAPARIN SODIUM 30 MG/0.3 ML SYRINGE SQ SCH ×2 (13:22→23:00)
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
[2017-09-27 20:09] VITALS: BP 91/55; PULSE 73; RESP 19; TEMP 96.8; O2SAT 97
[2017-09-27] MEDS: REMOVE OLD LIDOCAINE PATCH T-DERMAL SCH (21:00)
[2017-09-28] MEDS ORDERED: LACTATED RINGER'S 1000 ML IV PRN (00:30)
[2017-09-28] MEDS ORDERED: CHLORHEXIDINE GLUCONATE 2 % 1 PACK (2 CLOTHS) TOPICAL PRN (00:30)
[2017-09-28] MEDS ORDERED: POVIDONE IODINE 5% (ANTISEPSIS KIT) 4 APPLICATIONS EACH NARE PRN (00:30)
[2017-09-28 04:53] VITALS: BP 118/61; PULSE 76; RESP 19; TEMP 97.1; O2SAT 97
[2017-09-28] MEDS: BACLOFEN 10 MG TAB PO SCH ×3 (05:38→21:21)
--- NOTE | 2017-09-28 06:43 | PD.ORT.PN ---
Subjective Subjective Remarks Stable no changes. Objective Vitals Vital Signs Date Time Temp Pulse Resp B/P (MAP) Pulse Ox O2 Delivery O2 Flow Rate FiO2 09/28/17 04:53 97.1 76 19 118/61 (80) 97 09/27/17 22:48 Room Air 09/27/17 20:09 96.8 73 19 91/55 (67) 97 09/27/17 08:00 97.6 67 18 107/65 (79) 96 I/O 09/27/17 09/27/17 09/27/17 09/28/17 09/28/17 09/28/17 07:00 15:00 23:00 07:00 15:00 23:00 Intake Total 720 ml 800 ml 360 ml 0 ml Output Total 475 ml 350 ml 375 ml 400 ml Balance 245 ml 450 ml -15 ml -400 ml Intake Oral 720 ml 800 ml 360 ml 0 ml Output Urine Total 475 ml 350 ml 375 ml 400 ml # Bowel Movements 0 0 0 0 Imaging Last 72 hours Impressions Wrist X-Ray 09/11/17 1200 Signed Impressions: Service Date/Time: Monday, September 11, 2017 12:26 - CONCLUSION: 1. No acute fracture or joint dislocation. The carpal bones are grossly unremarkable. 2. Old healed fractures involving the third fourth metacarpals. Vega Carmichael MD Elbow X-Ray 09/11/17 1200 Signed Impressions: Service Date/Time: Monday, September 11, 2017 12:30 - CONCLUSION: 1. There is a small sliver of cortical bone adjacent to the lateral humeral condyle. This could be a cortical avulsion injury of unknown age. Recommend correlation with point tenderness in this location. 2. Otherwise, the rest of bony structures are intact with no other definite acute fracture or joint dislocation. No definite joint effusion. Vega Carmichael MD Last 24 hours Impressions Chest X-Ray 08/28/17 0000 Signed Impressions: Service Date/Time: Monday, August 28, 2017 04:22 - CONCLUSION: 1. Left basilar atelectasis Kem Bettencourt MD Thoracic Spine CT 08/27/17 1433 Signed Impressions: Service Date/Time: Sunday, August 27, 2017 14:53 - CONCLUSION: Unremarkable examination of the thoracic spine. No evidence of fracture. Kem Bettencourt MD Pelvis X-Ray 08/27/171432 Signed Impressions: Service Date/Time: Sunday, August 27, 2017 14:27 - CONCLUSION: 1. Limited examination but no fractures identified Kem Bettencourt MD Lumbar Spine CT [id number]/27/171432 Signed Impressions: Service Date/Time: Sunday, August 27, 2017 14:53 - CONCLUSION: 1. Kem Bettencourt MD Head CT [id number]/27/171432 Signed Impressions: Service Date/Time: Sunday, August 27, 2017 14:39 - CONCLUSION: 1. No evidence of acute intracranial pathology. No masses are identified. Kem Bettencourt MD Chest X-Ray [id number]/27/171432 Signed Impressions: Service Date/Time: Sunday, August 27, 2017 14:27 - CONCLUSION: 1. No acute cardiopulmonary disease. Kem Bettencorut MD Chest CT [id number]/27/171432 Signed Impressions: Service Date/Time: Sunday, August 27, 2017 14:59 - CONCLUSION: 1. No evidence of acute thoracic abnormality. No masses are identified. Kem Bettencourt MD Cervical Spine CT [id number]/27/171432 Signed Impressions: Service Date/Time: Sunday, August 27, 2017 14:39 - CONCLUSION: 1. Unstable fracture the cervical spine with fracture subluxation at C6-C7 and 9 mm of subluxation. 2. There is facet fracture on the right side which is perched on the apex of the right C7 facet. 3. On the left side there is complete facet jump Kem Bettencourt MD Abdomen/Pelvis CT [id number]/27/171432 Signed Impressions: Service Date/Time: Sunday, August 27, 2017 14:53 - CONCLUSION: 1. No evidence of acute abdominal or pelvic process. No masses are identified. Kem Bettencourt MD Objective Remarks LUE: . Elbow motion 30-120 degrees. No sensation over median nerve sensation. Pain to palpation over lunate and with wrist motion. Significant contractures developing. Is unable to flex or extend fingers. Good distal pulses RUE: No pain with shoulder elbow range of motion. 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 Assessment & Plan Assessment and Plan 1) Left Elbow Dislocation s/p Reduction -NWB Occupational therapy for extension and flexion of elbow and pronation and supination Dr. Rao to manage left lunate dislocation in the hand Jared Mata Jr. Sep 28, 2017 06:43
[2017-09-28 08:00] VITALS: BP 111/64; PULSE 67; RESP 18; TEMP 97.8; O2SAT 95
[2017-09-28] MEDS: BACITRACIN TOP OINT 15 GM TUBE TOPICAL SCH ×2 (08:27→21:22)
[2017-09-28] MEDS: clonazePAM 0.5 MG TAB PO SCH ×2 (08:28→21:21)
[2017-09-28] MEDS: LIDOCAINE HCL 5% PATCH T-DERMAL SCH (08:29)
[2017-09-28] MEDS: DOCUSATE SODIUM 50 MG/SENNA 8.6 MG TAB PO SCH ×2 (08:32→21:00)
[2017-09-28] MEDS: PANTOPRAZOLE SOD 40 MG DELAYED RELEASE TAB PO SCH (08:32)
--- NOTE | 2017-09-28 08:45 | HHI.PR ---
Neuropsych Behavior Behavior: Intact: Behavior, Coping/Acceptance, Cooperative w/ Treatment, Motivation, Frustration Tolerance/[place], Impulsive/Agitated, Suicidal/Homicidal Risk Cognitive Cognitive: Intact: Cognitive, Attention/Concentration, Confused/Orientation, Insight/Awareness, Judgement/Problem-Solving, Memory Psychosocial Psychosocial: Severe: Psychosocial, Family/Other Adjustment, Realistic Expectation, Unable to Asses: Self-Esteem/Confidence Progress Notes/Response to Tx Contents of Sessions: Adjustment Time with Patient: 15 minutes Premorbid psychological status Premorbid Cognitive, Emotional and Behavioral Status: Stable. The patient has high school years of education and a solid work history prior to this injury. He had just moved to [place] from [place] two weeks prior. The patient has no prior psychiatric difficulties, as described above. Substance abuse history is unremarkable. Behavioral Reactions of Patient and Family/Support System: Stable. The patient s family is experiencing ongoing issues of adjustment given the nature of the injury, and this aspect of recovery will require ongoing monitoring. Emotional/Behavioral Status of Patient and Family/Support System: Stable. Pertinent issues, if appropriate to this patients clinical care, are described in detail above. Maximizing acute care outcome It is recommended that the patient be monitored for emergent emotional reactivity as the medical condition evolves. This patients neuropathological challenges may limit his rehabilitation potential going forward, and these challenges will require specialized therapeutic skills to maximize outcome. Additionally, the patients family is experiencing ongoing issues of adjustment given the traumatic nature of the injury, and they may benefit from ongoing psychological assistance. At this point in the recovery process, the patient does have cognitive capacity as the patient is able to understand a situation and its likely consequences, and he is able to manipulate information rationally. Cognitive capacity will be assessed throughout the recovery process. I will follow this patient throughout his acute care stay for adjustment issues. As an adjunct to his emotional stability and pain control, consider starting Cymbalta 30 BID, unless medically contraindicated. Anticipated Problems Ongoing areas of concern will include psychological adjustment, which is expected to improve with time and treatment. Given the severity of the patient's injuries it is my clinical opinion that this patient will be unable to return to any type of productive employment for at least one year, perhaps longer and likely never. Treatment Plan This clinician will continue to follow with you throughout the course of this patients acute care treatment, and I will be available to meet with the patient s family/support system to facilitate their understanding and the ongoing care of their family member. The goals of neuropsychological intervention shall be both educational and supportive to the family/support system as is deemed clinically appropriate. Impression This is a 31 year old man s/p SCI at C5-6 2T [facility] [place]. He is being followed for emotional adjustment following a spinal cord injury. Diagnosis: (1) Adjustment disorder with anxiety Status: Acute Progress Note Narrative PTD 32. No new neurobehavioral concerns. He remains stable. Awaiting transfer to [place]. He was out for surgery during rounds today. I will follow. Americo Levine PhD Sep 28, 2017 8:45 am
[2017-09-28] MEDS: ENOXAPARIN SODIUM 30 MG/0.3 ML SYRINGE SQ SCH ×2 (10:30→23:23)
[2017-09-28] MEDS ORDERED: BUPIVACAINE HCL PF 0.5% 30 ML VIAL ONE (11:13)
[2017-09-28] MEDS ORDERED: LIDOCAINE HCL 1% PF 10 ML VIAL ONE (11:13)
[2017-09-28] MEDS ORDERED: ceFAZolin INJ 1,000 MG VIAL ONE (11:52)
[2017-09-28] MEDS ORDERED: POVIDONE IODINE 10% OINT 30 GM TUBE ONE (12:56)
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
[2017-09-28] MEDS ORDERED: DO NOT ADM ANY ANTICOAGULANT DRUGS PRN (13:29)
--- NOTE | 2017-09-28 13:31 | HHI.PR ---
Immediate Post Op Note Procedure Date: Sep 28, 2017 Pre Op Diagnosis: (1) Dislocation of lunate bone of wrist Post Op Diagnosis: (1) Dislocation of lunate bone of wrist Surgeon: Raul Brito MD Bait Maker(s): Digna Rao MD Procedure: Open reduction of dislocated Left lunate with ligament repair and open carpal tunnel release Findings: see op note Anesthesia: General Drains: None IVF Tourniquet time (min at mmHg) 61 mins Patient Condition: Good Raul Brito MD Sep 28, 2017 13:31
[2017-09-28] MEDS ORDERED: *morphine SULFATE 8 MG/ML PERIprocedure ONLY ONE (13:35)
[2017-09-28] MEDS ORDERED: *morphine SULFATE 4 MG/ML PERIprocedure ONLY ONE (13:53)
[2017-09-28 14:37] VITALS: BP 126/79; PULSE 51; RESP 18; TEMP 97; O2SAT 98
[2017-09-28] MEDS: ACETAMINOPHEN/HYDROcodone 325 MG/5 MG TAB PO PRN (14:57)
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
[2017-09-28 20:45] VITALS: BP 113/62; PULSE 83; RESP 17; TEMP 96.4; O2SAT 96
[2017-09-28] MEDS: REMOVE OLD LIDOCAINE PATCH T-DERMAL SCH (21:21)
[2017-09-29] VITALS (7 sets, daily range): BP systolic 96–122; BP diastolic 53–69; PULSE 69–87; RESP 17–18; TEMP 95.9–97.6; O2SAT 95–97
[2017-09-29] MEDS: ACETAMINOPHEN/HYDROcodone 325 MG/5 MG TAB PO PRN ×4 (02:58→22:23)
[2017-09-29] MEDS: BACLOFEN 10 MG TAB PO SCH ×3 (06:24→21:11)
--- NOTE | 2017-09-29 08:40 | HHI.PR ---
Neuropsych Emotional Emotional: Intact: Emotional, Anxious/Fearful, Depressed/Sad, Hostile/Resentful , Irritable/Angry/[place], Labile, Constricted/Blunted Behavior Behavior: Intact: Behavior, Coping/Acceptance, Cooperative w/ Treatment, Motivation, Frustration Tolerance/[place], Impulsive/Agitated, Suicidal/Homicidal Risk Cognitive Cognitive: Intact: Cognitive, Attention/Concentration, Confused/Orientation, Insight/Awareness, Judgement/Problem-Solving, Memory Psychosocial Psychosocial: Moderate: Psychosocial, Family/Other Adjustment, Realistic Expectation, Unable to Asses: Self-Esteem/Confidence Progress Notes/Response to Tx Contents of Sessions: Adjustment, Level of Consciousness Premorbid psychological status Premorbid Cognitive, Emotional and Behavioral Status: Stable. The patient has high school years of education and a solid work history prior to this injury. He had just moved to [place] from [place] two weeks prior. The patient has no prior psychiatric difficulties, as described above. Substance abuse history is unremarkable. Behavioral Reactions of Patient and Family/Support System: Stable. The patient s family is experiencing ongoing issues of adjustment given the nature of the injury, and this aspect of recovery will require ongoing monitoring. Emotional/Behavioral Status of Patient and Family/Support System: Stable. Pertinent issues, if appropriate to this patients clinical care, are described in detail above. Maximizing acute care outcome It is recommended that the patient be monitored for emergent emotional reactivity as the medical condition evolves. This patients neuropathological challenges may limit his rehabilitation potential going forward, and these challenges will require specialized therapeutic skills to maximize outcome. Additionally, the patients family is experiencing ongoing issues of adjustment given the traumatic nature of the injury, and they may benefit from ongoing psychological assistance. At this point in the recovery process, the patient does have cognitive capacity as the patient is able to understand a situation and its likely consequences, and he is able to manipulate information rationally. Cognitive capacity will be assessed throughout the recovery process. I will follow this patient throughout his acute care stay for adjustment issues. As an adjunct to his emotional stability and pain control, consider starting Cymbalta 30 BID, unless medically contraindicated. Anticipated Problems Ongoing areas of concern will include psychological adjustment, which is expected to improve with time and treatment. Given the severity of the patient's injuries it is my clinical opinion that this patient will be unable to return to any type of productive employment for at least one year, perhaps longer and likely never. Treatment Plan This clinician will continue to follow with you throughout the course of this patients acute care treatment, and I will be available to meet with the patient s family/support system to facilitate their understanding and the ongoing care of their family member. The goals of neuropsychological intervention shall be both educational and supportive to the family/support system as is deemed clinically appropriate. Impression This is a 31 year old man s/p SCI at C5-6 2T [facility] [place]. He is being followed for emotional adjustment following a spinal cord injury. Diagnosis: (1) Adjustment disorder with anxiety Status: Acute Progress Note Narrative PTD 33. The patient remains neurobehaviorally stable with no issues of anxiety/ depression or agitation/restlessness. Continued challenges include discharge back to [place]. I will continue to follow. Americo Levine PhD Sep 29, 2017 8:40 am
[2017-09-29] MEDS: DOCUSATE SODIUM 50 MG/SENNA 8.6 MG TAB PO SCH ×2 (09:00→21:10)
[2017-09-29] MEDS: clonazePAM 0.5 MG TAB PO SCH ×2 (09:23→21:11)
[2017-09-29] MEDS: LIDOCAINE HCL 5% PATCH T-DERMAL SCH (09:24)
[2017-09-29] MEDS: PANTOPRAZOLE SOD 40 MG DELAYED RELEASE TAB PO SCH (09:24)
[2017-09-29] MEDS: BACITRACIN TOP OINT 15 GM TUBE TOPICAL SCH ×2 (09:25→21:11)
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
[2017-09-29] MEDS: ENOXAPARIN SODIUM 30 MG/0.3 ML SYRINGE SQ SCH (13:09)
--- NOTE | 2017-09-29 13:21 | HHI.PR ---
Subjective Remarks No acute changes overnight. No new complaints. LUE sensation at baseline per pt and nurse. Objective Vital Signs Date Time Temp Pulse Resp B/P (MAP) Pulse Ox O2 Delivery O2 Flow Rate FiO2 09/29/17 12:00 96.2 73 18 108/63 (78) 97 09/29/17 09:54 Room Air 09/29/17 08:00 96.7 79 18 119/60 (79) 95 09/29/17 04:45 96.9 73 17 111/64 (80) 95 09/29/17 00:35 97.6 87 17 122/69 (86) 96 09/28/17 20:45 96.4 83 17 113/62 (79) 96 09/28/17 14:37 97.0 51 18 126/79 (95) 98 09/28/17 13:50 52 16 121/68 (85) 99 Nasal Cannula 2 09/28/17 13:35 62 16 118/50 (72) 97 Nasal Cannula 2 09/28/17 13:28 97.8 68 16 118/71 (87) 98 Nasal Cannula 2 I/O 09/28/17 09/28/17 09/28/17 09/29/17 09/29/17 09/29/17 07:00 15:00 23:00 07:00 15:00 23:00 Intake Total 0 ml 1500 ml 480 ml 360 ml Output Total 400 ml 355 ml 1750 ml 750 ml Balance -400 ml 1145 ml -1270 ml -390 ml Intake Oral 0 ml 480 ml 360 ml Other 1500 ml Output Urine Total 400 ml 250 ml 1750 ml 750 ml Estimated Blood Loss 5 ml Other 100 ml # Bowel Movements 0 0 0 Objective Remarks LUE splint in place excellent cap refill to digits x 5 SILT radial distribution, at baseline Assessment and Plan Problem List: (1) Dislocation of lunate bone of wrist ICD Codes: S63.006A - Unspecified dislocation of unspecified wrist and hand, initial encounter (2) Paraplegia ICD Codes: G82.20 - Paraplegia, unspecified Status: Acute Assessment and Plan POD 1 s/p L lunate reduction doing well elevate LUE above heart keep L splint clean/dry/intact OT for digit ROM, no restrictions, otherwise, LUE NWB Splint will be d/c'd in 1-2 weeks Raul Nina MD Sep 29, 2017 13:21
[2017-09-29] MEDS: REMOVE OLD LIDOCAINE PATCH T-DERMAL SCH (21:17)
[2017-09-30] MEDS: ENOXAPARIN SODIUM 30 MG/0.3 ML SYRINGE SQ SCH ×3 (00:31→20:07)
[2017-09-30 00:45] VITALS: BP 101/46; PULSE 66; RESP 17; TEMP 97.9; O2SAT 96
[2017-09-30] MEDS: BACLOFEN 10 MG TAB PO SCH ×3 (06:28→22:59)
[2017-09-30] MEDS: ACETAMINOPHEN/HYDROcodone 325 MG/5 MG TAB PO PRN ×4 (06:28→23:04)
[2017-09-30 08:04] VITALS: BP 120/67; PULSE 70; RESP 17; TEMP 97.2; O2SAT 94; O2SAT 98
[2017-09-30] MEDS: DOCUSATE SODIUM 50 MG/SENNA 8.6 MG TAB PO SCH ×2 (09:00→20:10)
[2017-09-30] MEDS: clonazePAM 0.5 MG TAB PO SCH ×2 (09:45→20:07)
[2017-09-30] MEDS: PANTOPRAZOLE SOD 40 MG DELAYED RELEASE TAB PO SCH (09:45)
[2017-09-30] MEDS: LIDOCAINE HCL 5% PATCH T-DERMAL SCH (09:45)
[2017-09-30] MEDS: BACITRACIN TOP OINT 15 GM TUBE TOPICAL SCH ×2 (09:47→20:12)
[2017-09-30 12:00] VITALS: BP 129/66; PULSE 80; RESP 18; TEMP 98.5; O2SAT 94
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
[2017-09-30 16:00] VITALS: BP 100/49; PULSE 83; RESP 19; TEMP 96.7; O2SAT 95
[2017-09-30 20:00] VITALS: BP 126/67; PULSE 70; RESP 19; TEMP 99.2; O2SAT 96
[2017-09-30] MEDS: REMOVE OLD LIDOCAINE PATCH T-DERMAL SCH (20:11)
[2017-09-30] MEDS: MAGNESIUM HYDROXIDE SUSP 30 ML CUP PO SCH (23:00)
[2017-10-01] MEDS: ACETAMINOPHEN/HYDROcodone 325 MG/5 MG TAB PO PRN ×5 (04:19→23:39)
[2017-10-01] MEDS: BACLOFEN 10 MG TAB PO SCH ×3 (06:01→23:40)
[2017-10-01 08:10] VITALS: BP 116/68; PULSE 73; RESP 17; TEMP 97.3; O2SAT 95
[2017-10-01] MEDS: MAGNESIUM HYDROXIDE SUSP 30 ML CUP PO SCH ×2 (09:00→21:00)
[2017-10-01] MEDS: LACTULOSE SYRUP 20 GM/30 ML CUP PO SCH (09:00)
[2017-10-01] MEDS: clonazePAM 0.5 MG TAB PO SCH ×2 (09:42→23:40)
[2017-10-01] MEDS: DOCUSATE SODIUM 50 MG/SENNA 8.6 MG TAB PO SCH ×2 (09:42→23:40)
[2017-10-01] MEDS: PANTOPRAZOLE SOD 40 MG DELAYED RELEASE TAB PO SCH (09:42)
[2017-10-01] MEDS: LIDOCAINE HCL 5% PATCH T-DERMAL SCH (09:43)
[2017-10-01] MEDS: ENOXAPARIN SODIUM 30 MG/0.3 ML SYRINGE SQ SCH ×2 (09:43→23:39)
[2017-10-01] MEDS: BACITRACIN TOP OINT 15 GM TUBE TOPICAL SCH ×2 (09:44→23:44)
[2017-10-01 12:04] VITALS: BP 128/64; PULSE 64; RESP 18; TEMP 98.4; O2SAT 97
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
[2017-10-01] MEDS: NYSTAT/DIPHENHY/LIDO MOUTHWASH (Adult) 120ML SWISH-SPIT SCH ×3 (13:49→23:40)
[2017-10-01 15:59] VITALS: BP 99/52; PULSE 70; RESP 17; TEMP 96.8; O2SAT 96
[2017-10-01 20:08] VITALS: BP 137/72; PULSE 61; RESP 16; TEMP 97.4; O2SAT 97
[2017-10-01] MEDS: REMOVE OLD LIDOCAINE PATCH T-DERMAL SCH (23:51)
[2017-10-02 02:22] VITALS: O2SAT 97
[2017-10-02] MEDS: ACETAMINOPHEN/HYDROcodone 325 MG/5 MG TAB PO PRN ×4 (03:44→17:48)
[2017-10-02 04:08] LABS: AUTOMATED NEUTROPHIL # 4.3 TH/MM3 (1.8-7.7); BASOPHIL # 0.1 TH/MM3 (0-0.2); BASOPHIL % 0.9 % (0.0-2.0); EOSINOPHIL # 0.5 TH/MM3 (0-0.4); EOSINOPHIL % 6.2 % (0.0-4.0); HEMATOCRIT 40.5 % (39.0-51.0); MEAN CORPUSCULAR HEMOGLOBIN 32.8 PG (27.0-34.0); MEAN CORPUSCULAR HGB CONC 34.5 % (32.0-36.0); MEAN PLATELET VOLUME 7.8 FL (7.0-11.0); MONO % 9.9 % (0.0-8.0); MONOCYTE # 0.8 TH/MM3 (0-0.9); PLATELET COUNT 285 TH/MM3 (150-450); RED BLOOD COUNT 4.26 MIL/MM3 (4.50-5.90); RED CELL DISTRIBUTION WIDTH 12.4 % (11.6-17.2); WHITE BLOOD COUNT 7.6 TH/MM3 (4.0-11.0)
[2017-10-02 04:32] LABS: ALBUMIN 2.9 GM/DL (3.4-5.0); AST (GOT) 24 U/L (15-37); BICARBONATE 27.9 MEQ/L (21.0-32.0); BLOOD UREA NITROGEN 12 MG/DL (7-18); CALCIUM 9.3 MG/DL (8.5-10.1); CHLORIDE 102 MEQ/L (98-107); CREATININE 0.59 MG/DL (0.60-1.30); GLOMERULAR FILTRATION RATE 160 ML/MIN (>89); GLUCOSE,RANDOM 90 MG/DL (74-106); SODIUM (NA) 138 MEQ/L (136-145)
[2017-10-02 04:34] LABS: ALT (GPT) 24 U/L (12-78)
[2017-10-02 04:35] LABS: ALKALINE PHOSPHATASE 64 U/L (45-117); TOTAL BILIRUBIN ADULT 0.5 MG/DL (0.2-1.0); TOTAL PROTEIN 6.6 GM/DL (6.4-8.2)
[2017-10-02] MEDS: BACLOFEN 10 MG TAB PO SCH ×3 (05:27→22:32)
[2017-10-02 08:00] VITALS: BP 111/68; PULSE 74; RESP 18; TEMP 97.7; O2SAT 95
[2017-10-02] MEDS: LIDOCAINE HCL 5% PATCH T-DERMAL SCH (08:24)
[2017-10-02] MEDS: DOCUSATE SODIUM 50 MG/SENNA 8.6 MG TAB PO SCH ×2 (08:24→20:52)
[2017-10-02] MEDS: PANTOPRAZOLE SOD 40 MG DELAYED RELEASE TAB PO SCH (08:24)
[2017-10-02] MEDS: MAGNESIUM HYDROXIDE SUSP 30 ML CUP PO SCH ×2 (08:24→20:52)
[2017-10-02] MEDS: clonazePAM 0.5 MG TAB PO SCH ×2 (08:24→20:52)
[2017-10-02] MEDS: LACTULOSE SYRUP 20 GM/30 ML CUP PO SCH (08:25)
[2017-10-02] MEDS: ENOXAPARIN SODIUM 30 MG/0.3 ML SYRINGE SQ SCH ×2 (08:25→20:52)
[2017-10-02] MEDS: BACITRACIN TOP OINT 15 GM TUBE TOPICAL SCH ×2 (08:25→20:58)
[2017-10-02] MEDS: NYSTAT/DIPHENHY/LIDO MOUTHWASH (Adult) 120ML SWISH-SPIT SCH ×4 (08:25→20:52)
[2017-10-02] MEDS ORDERED: BISACODYL 10 MG SUPP RECTAL ONE (08:30)
[2017-10-02] MEDS ORDERED: BISACODYL EC 5 MG TABEC PO ONE (08:30)
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
[2017-10-02 12:00] VITALS: BP 116/72; PULSE 72; RESP 18; TEMP 96.6; O2SAT 93
[2017-10-02] MEDS: GABAPENTIN 300 MG CAP PO SCH ×2 (14:15→17:48)
--- NOTE | 2017-10-02 14:59 | HHI.PR ---
Subjective Remarks The patient reports pain which is relieved by Narco. He does note some breakthrough pain toward the end of the dose cycle. Objective Vital Signs Date Time Temp Pulse Resp B/P (MAP) Pulse Ox O2 Delivery O2 Flow Rate FiO2 10/02/17 12:00 96.6 72 18 116/72 (87) 93 10/02/17 08:00 97.7 74 18 111/68 (82) 95 10/02/17 02:22 97 10/01/17 20:08 97.4 61 16 137/72 (93) 97 10/01/17 15:59 96.8 70 17 99/52 (68) 96 I/O 10/01/17 10/01/17 10/01/17 10/02/17 10/02/17 10/02/17 07:00 15:00 23:00 07:00 15:00 23:00 Intake Total 1000 ml Output Total 950 ml 950 ml 900 ml Balance -950 ml 50 ml -900 ml Intake Oral 1000 ml Output Urine Total 950 ml 950 ml 900 ml # Bowel Movements 0 0 Result Diagram: 10/02/17 0344 10/02/17 0344 Objective Remarks The dressing to his left upper extremity is intact. There is no odor. His fingers are warm and well-perfused. There does not appear to be any new swelling. Assessment and Plan Assessment and Plan Impression: The patient is progressing well. Plan: We will change the dressing later in the week. I have discussed with the nurse to discuss with the patient's attending physician regarding the use of ibuprofen or another anti-inflammatory in order to help with the patient's pain. Digna Rao MD Oct 02, 2017 14:59
[2017-10-02] MEDS: IBUPROFEN 600 MG TAB PO SCH ×2 (15:16→22:33)
[2017-10-02 16:00] VITALS: BP 105/69; PULSE 80; RESP 18; TEMP 96.1; O2SAT 98
[2017-10-02 19:31] VITALS: BP 99/51; PULSE 71; RESP 19; TEMP 97.3; O2SAT 95
[2017-10-02] MEDS: REMOVE OLD LIDOCAINE PATCH T-DERMAL SCH (20:53)
[2017-10-03 00:01] VITALS: BP 117/65; PULSE 70; RESP 18; TEMP 97.9; O2SAT 95
[2017-10-03] MEDS: ACETAMINOPHEN/HYDROcodone 325 MG/5 MG TAB PO PRN ×2 (02:47→09:59)
[2017-10-03] MEDS: IBUPROFEN 600 MG TAB PO SCH ×4 (06:09→22:10)
[2017-10-03] MEDS: BACLOFEN 10 MG TAB PO SCH ×4 (06:09→22:10)
[2017-10-03 08:00] VITALS: BP 103/62; PULSE 75; RESP 18; TEMP 96.8; O2SAT 96
--- NOTE | 2017-10-03 08:52 | HHI.PR ---
Neuropsych Behavior Behavior: Intact: Behavior, Coping/Acceptance, Cooperative w/ Treatment, Motivation, Frustration Tolerance/[place], Impulsive/Agitated, Suicidal/Homicidal Risk Psychosocial Psychosocial: Severe: Psychosocial, Family/Other Adjustment, Realistic Expectation, Self-Esteem/Confidence Progress Notes/Response to Tx Contents of Sessions: Adjustment, Level of Consciousness Time with Patient: 15 minutes Premorbid psychological status Premorbid Cognitive, Emotional and Behavioral Status: Stable. The patient has high school years of education and a solid work history prior to this injury. He had just moved to [place] from [place] two weeks prior. The patient has no prior psychiatric difficulties, as described above. Substance abuse history is unremarkable. Behavioral Reactions of Patient and Family/Support System: Stable. The patient s family is experiencing ongoing issues of adjustment given the nature of the injury, and this aspect of recovery will require ongoing monitoring. Emotional/Behavioral Status of Patient and Family/Support System: Stable. Pertinent issues, if appropriate to this patients clinical care, are described in detail above. Maximizing acute care outcome It is recommended that the patient be monitored for emergent emotional reactivity as the medical condition evolves. This patients neuropathological challenges may limit his rehabilitation potential going forward, and these challenges will require specialized therapeutic skills to maximize outcome. Additionally, the patients family is experiencing ongoing issues of adjustment given the traumatic nature of the injury, and they may benefit from ongoing psychological assistance. At this point in the recovery process, the patient does have cognitive capacity as the patient is able to understand a situation and its likely consequences, and he is able to manipulate information rationally. Cognitive capacity will be assessed throughout the recovery process. I will follow this patient throughout his acute care stay for adjustment issues. As an adjunct to his emotional stability and pain control, consider starting Cymbalta 30 BID, unless medically contraindicated. Anticipated Problems Ongoing areas of concern will include psychological adjustment, which is expected to improve with time and treatment. Given the severity of the patient's injuries it is my clinical opinion that this patient will be unable to return to any type of productive employment for at least one year, perhaps longer and likely never. Treatment Plan This clinician will continue to follow with you throughout the course of this patients acute care treatment, and I will be available to meet with the patient s family/support system to facilitate their understanding and the ongoing care of their family member. The goals of neuropsychological intervention shall be both educational and supportive to the family/support system as is deemed clinically appropriate. Impression This is a 31 year old man [place]p [place] [facility] He is being followed for emotional adjustment following a spinal cord injury. Diagnosis: (1) Adjustment disorder with anxiety Status: Acute Progress Note Narrative PTD 36. No neurobehavioral issues. This patient is awaiting transfer back to [place]. I will follow until then. Provided support and encouragement during this difficult medical challenge. Americo Levine PhD Oct 03, 2017 8:52 am
[2017-10-03] MEDS: BACITRACIN TOP OINT 15 GM TUBE TOPICAL SCH ×2 (09:00→22:10)
[2017-10-03] MEDS: LACTULOSE SYRUP 20 GM/30 ML CUP PO SCH (09:00)
[2017-10-03] MEDS: MAGNESIUM HYDROXIDE SUSP 30 ML CUP PO SCH ×2 (09:00→20:34)
[2017-10-03] MEDS: DOCUSATE SODIUM 50 MG/SENNA 8.6 MG TAB PO SCH ×2 (09:58→20:34)
[2017-10-03] MEDS: clonazePAM 0.5 MG TAB PO SCH ×2 (09:58→20:34)
[2017-10-03] MEDS: ENOXAPARIN SODIUM 30 MG/0.3 ML SYRINGE SQ SCH ×2 (09:58→20:35)
[2017-10-03] MEDS: PANTOPRAZOLE SOD 40 MG DELAYED RELEASE TAB PO SCH (09:58)
[2017-10-03] MEDS: GABAPENTIN 300 MG CAP PO SCH ×3 (09:58→17:14)
[2017-10-03] MEDS: NYSTAT/DIPHENHY/LIDO MOUTHWASH (Adult) 120ML SWISH-SPIT SCH ×4 (09:59→20:34)
[2017-10-03] MEDS: LIDOCAINE HCL 5% PATCH T-DERMAL SCH (09:59)
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
[2017-10-03 12:00] VITALS: BP 101/59; PULSE 75; RESP 20; TEMP 96; O2SAT 95
[2017-10-03 16:00] VITALS: BP 110/59; PULSE 66; RESP 20; TEMP 96.8; O2SAT 96
[2017-10-03 20:05] VITALS: BP_SYST 110; BP_SYST 121; BP_DIAS 56; BP_DIAS 66; PULSE 65; RESP 16; TEMP 97.3; O2SAT 97
[2017-10-03] MEDS: REMOVE OLD LIDOCAINE PATCH T-DERMAL SCH (20:35)
[2017-10-04] MEDS: ACETAMINOPHEN/HYDROcodone 325 MG/5 MG TAB PO PRN ×3 (02:54→23:30)
[2017-10-04] MEDS: IBUPROFEN 600 MG TAB PO SCH ×3 (06:01→23:00)
[2017-10-04] MEDS: BACLOFEN 10 MG TAB PO SCH ×3 (06:01→23:00)
[2017-10-04 08:00] VITALS: BP 133/64; PULSE 78; RESP 18; TEMP 99.4; O2SAT 95
--- NOTE | 2017-10-04 08:48 | HHI.PR ---
Neuropsych Behavior Behavior: Intact: Coping/Acceptance, Cooperative w/ Treatment, Motivation, Frustration Tolerance/[place], Impulsive/Agitated Cognitive Cognitive: Intact: Cognitive, Attention/Concentration, Confused/Orientation, Insight/Awareness, Judgement/Problem-Solving, Memory Psychosocial Psychosocial: Severe: Psychosocial, Family/Other Adjustment, Realistic Expectation, Unable to Asses: Self-Esteem/Confidence Progress Notes/Response to Tx Contents of Sessions: Level of Consciousness Time with Patient: 15 minutes Premorbid psychological status Premorbid Cognitive, Emotional and Behavioral Status: Stable. The patient has high school years of education and a solid work history prior to this injury. He had just moved to [place] from [place] two weeks prior. The patient has no prior psychiatric difficulties, as described above. Substance abuse history is unremarkable. Behavioral Reactions of Patient and Family/Support System: Stable. The patient s family is experiencing ongoing issues of adjustment given the nature of the injury, and this aspect of recovery will require ongoing monitoring. Emotional/Behavioral Status of Patient and Family/Support System: Stable. Pertinent issues, if appropriate to this patients clinical care, are described in detail above. Maximizing acute care outcome It is recommended that the patient be monitored for emergent emotional reactivity as the medical condition evolves. This patients neuropathological challenges may limit his rehabilitation potential going forward, and these challenges will require specialized therapeutic skills to maximize outcome. Additionally, the patients family is experiencing ongoing issues of adjustment given the traumatic nature of the injury, and they may benefit from ongoing psychological assistance. At this point in the recovery process, the patient does have cognitive capacity as the patient is able to understand a situation and its likely consequences, and he is able to manipulate information rationally. Cognitive capacity will be assessed throughout the recovery process. I will follow this patient throughout his acute care stay for adjustment issues. As an adjunct to his emotional stability and pain control, consider starting Cymbalta 30 BID, unless medically contraindicated. Anticipated Problems Ongoing areas of concern will include psychological adjustment, which is expected to improve with time and treatment. Given the severity of the patient's injuries it is my clinical opinion that this patient will be unable to return to any type of productive employment for at least one year, perhaps longer and likely never. Treatment Plan This clinician will continue to follow with you throughout the course of this patients acute care treatment, and I will be available to meet with the patient s family/support system to facilitate their understanding and the ongoing care of their family member. The goals of neuropsychological intervention shall be both educational and supportive to the family/support system as is deemed clinically appropriate. Impression This is a 31 year old man s/p SCI at C5-6 [facility]. He is being followed for emotional adjustment following a spinal cord injury. Diagnosis: (1) Adjustment disorder with anxiety Status: Acute Progress Note Narrative PTD 38. The patient remains neurobehaviorally stable, with no new psychological issues presenting. He awaits transfer back to [place]. I will follow. Americo Levine PhD Oct 04, 2017 8:48 am
[2017-10-04] MEDS: MAGNESIUM HYDROXIDE SUSP 30 ML CUP PO SCH ×2 (09:00→20:28)
[2017-10-04] MEDS: NYSTAT/DIPHENHY/LIDO MOUTHWASH (Adult) 120ML SWISH-SPIT SCH ×4 (09:00→20:28)
[2017-10-04] MEDS: LACTULOSE SYRUP 20 GM/30 ML CUP PO SCH (09:00)
[2017-10-04] MEDS: LIDOCAINE HCL 5% PATCH T-DERMAL SCH (09:53)
[2017-10-04] MEDS: ENOXAPARIN SODIUM 30 MG/0.3 ML SYRINGE SQ SCH ×2 (09:53→20:28)
[2017-10-04] MEDS: clonazePAM 0.5 MG TAB PO SCH ×2 (09:54→20:28)
[2017-10-04] MEDS: PANTOPRAZOLE SOD 40 MG DELAYED RELEASE TAB PO SCH (09:54)
[2017-10-04] MEDS: GABAPENTIN 300 MG CAP PO SCH ×3 (09:54→18:09)
[2017-10-04] MEDS: DOCUSATE SODIUM 50 MG/SENNA 8.6 MG TAB PO SCH ×2 (09:54→20:28)
[2017-10-04] MEDS: BACITRACIN TOP OINT 15 GM TUBE TOPICAL SCH ×2 (09:55→20:29)
[2017-10-04 12:00] VITALS: BP 99/52; PULSE 85; RESP 18; TEMP 99.2; O2SAT 93
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
[2017-10-04 16:00] VITALS: BP 118/70; PULSE 72; RESP 18; TEMP 99.4; O2SAT 98
[2017-10-04 20:00] VITALS: BP 121/66; PULSE 80; RESP 16; TEMP 98.6; O2SAT 95
[2017-10-04] MEDS: REMOVE OLD LIDOCAINE PATCH T-DERMAL SCH (20:28)
[2017-10-05] MEDS: BACLOFEN 10 MG TAB PO SCH ×3 (07:18→22:30)
[2017-10-05] MEDS: IBUPROFEN 600 MG TAB PO SCH ×3 (07:18→22:30)
[2017-10-05] MEDS: ACETAMINOPHEN/HYDROcodone 325 MG/5 MG TAB PO PRN ×2 (07:19→22:30)
[2017-10-05 07:51] VITALS: BP 122/66; PULSE 76; RESP 19; TEMP 96.6; O2SAT 95
--- NOTE | 2017-10-05 08:38 | HHI.PR ---
Neuropsych Emotional Emotional: Intact: Emotional, Anxious/Fearful, Depressed/Sad, Hostile/Resentful , Irritable/Angry/Frustrate, Labile, Constricted/Blunted Behavior Behavior: Intact: Behavior, Coping/Acceptance, Cooperative w/ Treatment, Motivation, Frustration Tolerance/[place], Impulsive/Agitated, Suicidal/Homicidal Risk Cognitive Cognitive: Intact: Cognitive, Attention/Concentration, Confused/Orientation, Insight/Awareness, Judgement/Problem-Solving, Memory Psychosocial Psychosocial: Moderate: Psychosocial, Family/Other Adjustment, Realistic Expectation, Unable to Asses: Self-Esteem/Confidence Progress Notes/Response to Tx Contents of Sessions: Adjustment Time with Patient: 15 minutes Premorbid psychological status Premorbid Cognitive, Emotional and Behavioral Status: Stable. The patient has high school years of education and a solid work history prior to this injury. He had just moved to [place] from [place] two weeks prior. The patient has no prior psychiatric difficulties, as described above. Substance abuse history is unremarkable. Behavioral Reactions of Patient and Family/Support System: Stable. The patient s family is experiencing ongoing issues of adjustment given the nature of the injury, and this aspect of recovery will require ongoing monitoring. Emotional/Behavioral Status of Patient and Family/Support System: Stable. Pertinent issues, if appropriate to this patients clinical care, are described in detail above. Maximizing acute care outcome It is recommended that the patient be monitored for emergent emotional reactivity as the medical condition evolves. This patients neuropathological challenges may limit his rehabilitation potential going forward, and these challenges will require specialized therapeutic skills to maximize outcome. Additionally, the patients family is experiencing ongoing issues of adjustment given the traumatic nature of the injury, and they may benefit from ongoing psychological assistance. At this point in the recovery process, the patient does have cognitive capacity as the patient is able to understand a situation and its likely consequences, and he is able to manipulate information rationally. Cognitive capacity will be assessed throughout the recovery process. I will follow this patient throughout his acute care stay for adjustment issues. As an adjunct to his emotional stability and pain control, consider starting Cymbalta 30 BID, unless medically contraindicated. Anticipated Problems Ongoing areas of concern will include psychological adjustment, which is expected to improve with time and treatment. Given the severity of the patient's injuries it is my clinical opinion that this patient will be unable to return to any type of productive employment for at least one year, perhaps longer and likely never. Treatment Plan This clinician will continue to follow with you throughout the course of this patients acute care treatment, and I will be available to meet with the patient s family/support system to facilitate their understanding and the ongoing care of their family member. The goals of neuropsychological intervention shall be both educational and supportive to the family/support system as is deemed clinically appropriate. Impression This is a 31 year old man s/p SCI at [facility] He is being followed for emotional adjustment following a spinal cord injury. Diagnosis: (1) Adjustment disorder with anxiety Status: Acute Progress Note Narrative PTD 39. No new neurobehavioral issues. The patient denies any depressive or anxious affect, and does not appear frustrated or agitated/restless. The patient was sleeping when we arrived. I will continue to follow. Americo Levine PhD Oct 05, 2017 8:37 am
[2017-10-05] MEDS: MAGNESIUM HYDROXIDE SUSP 30 ML CUP PO SCH ×2 (09:00→21:00)
[2017-10-05] MEDS: NYSTAT/DIPHENHY/LIDO MOUTHWASH (Adult) 120ML SWISH-SPIT SCH ×4 (09:00→21:00)
[2017-10-05] MEDS: LACTULOSE SYRUP 20 GM/30 ML CUP PO SCH (09:00)
[2017-10-05] MEDS: BACITRACIN TOP OINT 15 GM TUBE TOPICAL SCH ×2 (09:00→21:00)
[2017-10-05] MEDS: DOCUSATE SODIUM 50 MG/SENNA 8.6 MG TAB PO SCH ×2 (09:49→21:00)
[2017-10-05] MEDS: GABAPENTIN 300 MG CAP PO SCH ×3 (09:49→18:13)
[2017-10-05] MEDS: ENOXAPARIN SODIUM 30 MG/0.3 ML SYRINGE SQ SCH ×2 (09:49→22:30)
[2017-10-05] MEDS: LIDOCAINE HCL 5% PATCH T-DERMAL SCH (09:49)
[2017-10-05] MEDS: PANTOPRAZOLE SOD 40 MG DELAYED RELEASE TAB PO SCH (09:49)
[2017-10-05] MEDS: clonazePAM 0.5 MG TAB PO SCH (09:49)
[2017-10-05] MEDS ORDERED: clonazePAM 0.5 MG TAB PO PRN (13:45)
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
[2017-10-05 16:39] LABS: AUTOMATED NEUTROPHIL # 6.4 TH/MM3 (1.8-7.7); BASOPHIL # 0.1 TH/MM3 (0-0.2); BASOPHIL % 0.7 % (0.0-2.0); EOSINOPHIL # 0.5 TH/MM3 (0-0.4); EOSINOPHIL % 5.2 % (0.0-4.0); HEMATOCRIT 37.8 % (39.0-51.0); HEMOGLOBIN 13.6 GM/DL (13.0-17.0); LYMPH % 21.2 % (9.0-44.0); LYMPHOCYTE # 2.2 TH/MM3 (1.0-4.8); MEAN CELL VOLUME 95.1 FL (80.0-100.0); MEAN CORPUSCULAR HEMOGLOBIN 34.1 PG (27.0-34.0); MEAN CORPUSCULAR HGB CONC 35.8 % (32.0-36.0); MEAN PLATELET VOLUME 8.3 FL (7.0-11.0); MONO % 10.4 % (0.0-8.0); MONOCYTE # 1.1 TH/MM3 (0-0.9); NEUT % 62.5 % (16.0-70.0); PLATELET COUNT 289 TH/MM3 (150-450); RED BLOOD COUNT 3.98 MIL/MM3 (4.50-5.90); RED CELL DISTRIBUTION WIDTH 12.6 % (11.6-17.2); WHITE BLOOD COUNT 10.2 TH/MM3 (4.0-11.0)
[2017-10-05 16:49] LABS: CALCIUM 9.2 MG/DL (8.5-10.1); CREATININE 0.5 MG/DL (0.60-1.30)
[2017-10-05 20:45] VITALS: BP 111/62; PULSE 65; RESP 18; TEMP 96.5; O2SAT 95
[2017-10-05] MEDS: REMOVE OLD LIDOCAINE PATCH T-DERMAL SCH (21:00)
[2017-10-05 22:55] VITALS: BP 118/69; PULSE 83; RESP 18; TEMP 98.8; O2SAT 95
[2017-10-06] MEDS: ACETAMINOPHEN/HYDROcodone 325 MG/5 MG TAB PO PRN ×2 (02:15→11:21)
[2017-10-06] MEDS: IBUPROFEN 600 MG TAB PO SCH ×3 (06:29→21:33)
[2017-10-06] MEDS: BACLOFEN 10 MG TAB PO SCH ×3 (06:29→21:35)
[2017-10-06 08:00] VITALS: BP 119/68; PULSE 56; RESP 16; TEMP 96.9; O2SAT 96
--- NOTE | 2017-10-06 08:40 | HHI.PR ---
Neuropsych Behavior Behavior: Intact: Behavior, Coping/Acceptance, Cooperative w/ Treatment, Motivation, Frustration Tolerance/[place], Impulsive/Agitated, Suicidal/Homicidal Risk Cognitive Cognitive: Intact: Cognitive, Attention/Concentration, Confused/Orientation, Insight/Awareness, Judgement/Problem-Solving, Memory Psychosocial Psychosocial: Severe: Psychosocial, Family/Other Adjustment, Realistic Expectation, Unable to Asses: Self-Esteem/Confidence Progress Notes/Response to Tx Contents of Sessions: Adjustment, Level of Consciousness Time with Patient: 15 minutes Premorbid psychological status Premorbid Cognitive, Emotional and Behavioral Status: Stable. The patient has high school years of education and a solid work history prior to this injury. He had just moved to [place] from [place] two weeks prior. The patient has no prior psychiatric difficulties, as described above. Substance abuse history is unremarkable. Behavioral Reactions of Patient and Family/Support System: Stable. The patient s family is experiencing ongoing issues of adjustment given the nature of the injury, and this aspect of recovery will require ongoing monitoring. Emotional/Behavioral Status of Patient and Family/Support System: Stable. Pertinent issues, if appropriate to this patients clinical care, are described in detail above. Maximizing acute care outcome It is recommended that the patient be monitored for emergent emotional reactivity as the medical condition evolves. This patients neuropathological challenges may limit his rehabilitation potential going forward, and these challenges will require specialized therapeutic skills to maximize outcome. Additionally, the patients family is experiencing ongoing issues of adjustment given the traumatic nature of the injury, and they may benefit from ongoing psychological assistance. At this point in the recovery process, the patient does have cognitive capacity as the patient is able to understand a situation and its likely consequences, and he is able to manipulate information rationally. Cognitive capacity will be assessed throughout the recovery process. I will follow this patient throughout his acute care stay for adjustment issues. As an adjunct to his emotional stability and pain control, consider starting Cymbalta 30 BID, unless medically contraindicated. Anticipated Problems Ongoing areas of concern will include psychological adjustment, which is expected to improve with time and treatment. Given the severity of the patient's injuries it is my clinical opinion that this patient will be unable to return to any type of productive employment for at least one year, perhaps longer and likely never. Treatment Plan This clinician will continue to follow with you throughout the course of this patients acute care treatment, and I will be available to meet with the patient s family/support system to facilitate their understanding and the ongoing care of their family member. The goals of neuropsychological intervention shall be both educational and supportive to the family/support system as is deemed clinically appropriate. Impression This is a 31 year old man s/p SCI at C5-6 2T [facility] [place] [place]. He is being followed for emotional adjustment following a spinal cord injury. Diagnosis: (1) Adjustment disorder with anxiety Status: Acute Progress Note Narrative PTD 40. No neurobehavioral issues presenting. The patient awaits transfer home. I will continue to follow. Americo Levine PhD Oct 06, 2017 8:40 am
[2017-10-06] MEDS: LACTULOSE SYRUP 20 GM/30 ML CUP PO SCH (09:00)
[2017-10-06] MEDS: MAGNESIUM HYDROXIDE SUSP 30 ML CUP PO SCH ×2 (09:00→21:00)
[2017-10-06] MEDS: NYSTAT/DIPHENHY/LIDO MOUTHWASH (Adult) 120ML SWISH-SPIT SCH ×4 (09:00→21:00)
[2017-10-06] MEDS: DOCUSATE SODIUM 50 MG/SENNA 8.6 MG TAB PO SCH ×2 (11:20→21:32)
[2017-10-06] MEDS: ENOXAPARIN SODIUM 30 MG/0.3 ML SYRINGE SQ SCH ×2 (11:22→21:33)
[2017-10-06] MEDS: LIDOCAINE HCL 5% PATCH T-DERMAL SCH (11:22)
[2017-10-06] MEDS: PANTOPRAZOLE SOD 40 MG DELAYED RELEASE TAB PO SCH (11:22)
[2017-10-06] MEDS: GABAPENTIN 300 MG CAP PO SCH ×3 (11:22→16:23)
[2017-10-06] MEDS: clonazePAM 0.5 MG TAB PO SCH (11:22)
[2017-10-06] MEDS: BACITRACIN TOP OINT 15 GM TUBE TOPICAL SCH ×2 (11:23→21:33)
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
[2017-10-06 20:00] VITALS: BP 114/69; PULSE 55; RESP 16; TEMP 97; O2SAT 99
[2017-10-06] MEDS: REMOVE OLD LIDOCAINE PATCH T-DERMAL SCH (21:00)
[2017-10-07] VITALS: BP 98/52; PULSE 70; RESP 16; TEMP 96.6; O2SAT 96
[2017-10-07] MEDS: ACETAMINOPHEN/HYDROcodone 325 MG/5 MG TAB PO PRN ×4 (00:32→17:46)
[2017-10-07] MEDS: BACLOFEN 10 MG TAB PO SCH ×3 (06:04→22:39)
[2017-10-07] MEDS: IBUPROFEN 600 MG TAB PO SCH (06:04)
[2017-10-07 08:00] VITALS: BP 106/56; PULSE 63; RESP 16; TEMP 97.7; O2SAT 96
[2017-10-07] MEDS: MAGNESIUM HYDROXIDE SUSP 30 ML CUP PO SCH ×3 (09:00→20:26)
[2017-10-07] MEDS: NYSTAT/DIPHENHY/LIDO MOUTHWASH (Adult) 120ML SWISH-SPIT SCH ×4 (09:00→20:25)
[2017-10-07] MEDS: BACITRACIN TOP OINT 15 GM TUBE TOPICAL SCH ×2 (09:00→22:43)
[2017-10-07] MEDS: GABAPENTIN 300 MG CAP PO SCH ×3 (09:08→17:46)
[2017-10-07] MEDS: PANTOPRAZOLE SOD 40 MG DELAYED RELEASE TAB PO SCH (09:08)
[2017-10-07] MEDS: clonazePAM 0.5 MG TAB PO SCH (09:08)
[2017-10-07] MEDS: ENOXAPARIN SODIUM 30 MG/0.3 ML SYRINGE SQ SCH ×2 (09:08→20:25)
[2017-10-07] MEDS: DOCUSATE SODIUM 50 MG/SENNA 8.6 MG TAB PO SCH ×2 (09:09→20:25)
[2017-10-07] MEDS: LACTULOSE SYRUP 20 GM/30 ML CUP PO SCH (09:09)
[2017-10-07] MEDS: LIDOCAINE HCL 5% PATCH T-DERMAL SCH (09:11)
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
[2017-10-07 18:18] LABS: BACTERIA, URINE MOD /hpf; BILIRUBIN, URINE NEG (NEG); BLOOD, URINE NEG (NEG); GLUCOSE,URINE NEG (NEG); KETONE, URINE NEG (NEG); MUCUS URINE FEW /lpf (OCC); NITRITE,URINE POS (NEG); PH, URINE 5.5 (5.0-8.5); URINE COLOR YELLOW (YELLW/STRAW); URINE LEUKOCYTE ESTERASE LARGE (NEG)
[2017-10-07 20:00] VITALS: BP 114/65; PULSE 56; RESP 16; TEMP 97.6; O2SAT 98
[2017-10-07] MEDS: REMOVE OLD LIDOCAINE PATCH T-DERMAL SCH (20:25)
[2017-10-08] VITALS: BP 106/53; PULSE 68; RESP 15; TEMP 98.7; O2SAT 97
[2017-10-08] MEDS: ACETAMINOPHEN/HYDROcodone 325 MG/5 MG TAB PO PRN ×5 (00:54→22:31)
[2017-10-08] MEDS: BACLOFEN 10 MG TAB PO SCH ×3 (05:54→22:31)
[2017-10-08] MEDS: clonazePAM 0.5 MG TAB PO SCH (07:48)
[2017-10-08] MEDS: PANTOPRAZOLE SOD 40 MG DELAYED RELEASE TAB PO SCH (07:48)
[2017-10-08] MEDS: DOCUSATE SODIUM 50 MG/SENNA 8.6 MG TAB PO SCH ×2 (07:48→20:31)
[2017-10-08] MEDS: GABAPENTIN 300 MG CAP PO SCH ×3 (07:48→18:25)
[2017-10-08] MEDS: LACTULOSE SYRUP 20 GM/30 ML CUP PO SCH (07:49)
[2017-10-08] MEDS: MAGNESIUM HYDROXIDE SUSP 30 ML CUP PO SCH ×2 (07:49→20:30)
[2017-10-08] MEDS: BACITRACIN TOP OINT 15 GM TUBE TOPICAL SCH ×2 (07:50→21:53)
[2017-10-08] MEDS: NYSTAT/DIPHENHY/LIDO MOUTHWASH (Adult) 120ML SWISH-SPIT SCH ×4 (07:50→20:40)
[2017-10-08] MEDS: LIDOCAINE HCL 5% PATCH T-DERMAL SCH (07:50)
[2017-10-08] MEDS: ENOXAPARIN SODIUM 30 MG/0.3 ML SYRINGE SQ SCH ×2 (07:50→20:31)
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
[2017-10-08] MEDS ORDERED: cefTRIAXone INJ 1,000 MG in SODIUM CHLORIDE 0.9% INJ 100 ML IV SCH (11:00)
[2017-10-08 20:00] VITALS: BP 101/60; PULSE 100; RESP 16; TEMP 100.2; O2SAT 95
[2017-10-08] MEDS: ACETAMINOPHEN 325 MG TAB PO PRN (20:31)
[2017-10-08] MEDS: SULFAMETHOXAZOLE-TRIMETHOPRIM DS 800-160 MG TAB PO SCH (20:31)
[2017-10-08] MEDS: REMOVE OLD LIDOCAINE PATCH T-DERMAL SCH (20:31)
[2017-10-08] MEDS ORDERED: SULFAMETHOXAZOLE-TRIMETHOPRIM DS 800-160 MG TAB PO SCH (21:00)
[2017-10-09] VITALS: BP 121/73; PULSE 98; RESP 16; TEMP 99.5; O2SAT 96
[2017-10-09] MEDS: BACLOFEN 10 MG TAB PO SCH ×2 (05:56→11:25)
[2017-10-09] MEDS: ACETAMINOPHEN/HYDROcodone 325 MG/5 MG TAB PO PRN ×3 (05:56→18:29)
[2017-10-09] MEDS: clonazePAM 0.5 MG TAB PO SCH (07:18)
[2017-10-09] MEDS: SULFAMETHOXAZOLE-TRIMETHOPRIM DS 800-160 MG TAB PO SCH ×2 (07:18→20:02)
[2017-10-09] MEDS: DOCUSATE SODIUM 50 MG/SENNA 8.6 MG TAB PO SCH ×2 (07:18→20:02)
[2017-10-09] MEDS: GABAPENTIN 300 MG CAP PO SCH ×3 (07:18→18:29)
[2017-10-09] MEDS: ENOXAPARIN SODIUM 30 MG/0.3 ML SYRINGE SQ SCH ×2 (07:19→20:02)
[2017-10-09] MEDS: MAGNESIUM HYDROXIDE SUSP 30 ML CUP PO SCH ×2 (07:20→20:02)
[2017-10-09] MEDS: LACTULOSE SYRUP 20 GM/30 ML CUP PO SCH (07:20)
[2017-10-09] MEDS: NYSTAT/DIPHENHY/LIDO MOUTHWASH (Adult) 120ML SWISH-SPIT SCH ×4 (07:20→20:02)
[2017-10-09] MEDS: PANTOPRAZOLE SOD 40 MG DELAYED RELEASE TAB PO SCH (07:21)
[2017-10-09] MEDS: BACITRACIN TOP OINT 15 GM TUBE TOPICAL SCH ×2 (07:21→20:05)
[2017-10-09] MEDS: LIDOCAINE HCL 5% PATCH T-DERMAL SCH (07:21)
[2017-10-09 08:00] VITALS: BP 107/61; PULSE 64; RESP 18; TEMP 96.8; O2SAT 99
--- NOTE | 2017-10-09 08:42 | PD.NP.DS ---
Discharge Summary Reason for Referral: The patient is a 31 year old right handed male status post traumatic spinal cord injury 2T [facility] with injury at C5-6. He is referred for baseline neurobehavioral status examination per trauma protocol to assess cognitive, behavioral and emotional aspects of the injury and to provide treatment recommendations. He was followed by the trauma team for 40 days, and is medically and neuropsychologically stable at the time of discharge. Past Medical History: Please refer to the patient's history and physical for information concerning the patient's past medical, surgical, and psychiatric histories. Education/Learning Hx: The patient completed high school years of education. There is no report of learning difficulties, grade repetitions or behavioral difficulties. The patient has a sporadic work history confined to skilled. The patient is single. The patient lives in [place], [place]. Premorbid Cognitive, Emotional and Behavioral Status: Stable. The patient has high school years of education and a solid work history prior to this injury. He had just moved to [place] from [place] two weeks prior. The patient has no prior psychiatric difficulties, as described above. Substance abuse history is unremarkable. Behavioral Reactions of Patient and Family/Support System: Stable. The patient s family is experiencing ongoing issues of adjustment given the nature of the injury, and this aspect of recovery will require ongoing monitoring. Emotional/Behavioral Status of Patient and Family/Support System: Stable. Pertinent issues, if appropriate to this patients clinical care, are described in detail above. Treatment Interventions: During the course of their acute care stay, this patient and their family/ support system were provided information concerning the neuropsychological aspects of the injury, education regarding course of recovery, and psychological support in the form of counseling with the person served and the family/support system as documented in the neuropsychology service progress notes, as deemed clinically appropriate. Current, Cognitive, Emotional and Behavioral Status: Tenuous. This patient has experienced a severe injury, and will be adjusting to significant cognitive , emotional and behavioral challenges going forward. He is neurobehaviorally stable at the time of discharge. Impression at Discharge: The cognitive and behavioral status of this patient meets criteria for Adjustment disorder with Anxiety. The above listed diagnoses are supported by the following clinical criteria: Adjustment Disorder with Anxiety, stable (F43.22) Status of Family/Support System Adjustment: Tenuous. The patients family/ support system will experience ongoing issues of adjustment given the nature of the injury, and this aspect of the patients recovery will require ongoing monitoring. This patient needs transfer back to [place], which will be challenging given his medical complexities. Post Acute Recommendations: It is recommended that the patient continue to be monitored for behavioral impulsivity as they continue to be early in their course of recovery. This patients neuropathological challenges may limit their reintegration into work and family life going forward, and these challenges may require specialized therapeutic skills to maximize outcome. Thank you for the opportunity to assist in this patients care. Americo Levine, Ph.D., ABPP Board Certified in Clinical Neuropsychology [place] [employer] [place] Licensed Psychologist #[id number] Americo Levine PhD Oct 09, 2017 8:42 am
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
[2017-10-09] MEDS: REMOVE OLD LIDOCAINE PATCH T-DERMAL SCH (20:04)
[2017-10-09 22:47] VITALS: BP 101/55; PULSE 75; RESP 18; TEMP 96.7; O2SAT 95
[2017-10-10] MEDS: ACETAMINOPHEN/HYDROcodone 325 MG/5 MG TAB PO PRN ×5 (00:08→23:13)
[2017-10-10] MEDS: BACLOFEN 10 MG TAB PO SCH ×4 (00:08→23:13)
[2017-10-10] MEDS: SULFAMETHOXAZOLE-TRIMETHOPRIM DS 800-160 MG TAB PO SCH (05:56)
--- NOTE | 2017-10-10 07:00 | RADRPT ---
EXAM DATE/TIME: 10/10/2017 06:38 [facility] COMPARISON: ELBOW LEFT LIMITED (AP & LAT), August 31, 2017, 8:17. INDICATIONS : Post reduction. MEDICAL HISTORY : None. SURGICAL HISTORY : None. ENCOUNTER: Subsequent ACUITY: 1 day PAIN SCORE: 0/10 LOCATION: Left elbow FINDINGS: Multiple views left elbow were obtained and demonstrate mild widening of the joint space without sign ificant change. The known fracture seen on CT is not well-visualized. There is no acute fracture. The radial head is intact. There is overlying soft tissue swelling. CONCLUSION: No significant change. Jared Maria MD on October 10, 2017 at 6:57 Board Certified Radiologist. This report was verified electronically.
[2017-10-10 07:17] LABS: AUTOMATED NEUTROPHIL # 5.3 TH/MM3 (1.8-7.7); BASOPHIL # 0.1 TH/MM3 (0-0.2); BASOPHIL % 0.9 % (0.0-2.0); EOSINOPHIL # 0.5 TH/MM3 (0-0.4); EOSINOPHIL % 5.3 % (0.0-4.0); HEMATOCRIT 39.9 % (39.0-51.0); HEMOGLOBIN 13.7 GM/DL (13.0-17.0); LYMPH % 23.9 % (9.0-44.0); LYMPHOCYTE # 2.1 TH/MM3 (1.0-4.8); MEAN CELL VOLUME 94.1 FL (80.0-100.0); MEAN CORPUSCULAR HEMOGLOBIN 32.3 PG (27.0-34.0); MEAN CORPUSCULAR HGB CONC 34.4 % (32.0-36.0); MEAN PLATELET VOLUME 7.7 FL (7.0-11.0); MONO % 10.6 % (0.0-8.0); MONOCYTE # 0.9 TH/MM3 (0-0.9); NEUT % 59.3 % (16.0-70.0); PLATELET COUNT 324 TH/MM3 (150-450); RED BLOOD COUNT 4.24 MIL/MM3 (4.50-5.90); RED CELL DISTRIBUTION WIDTH 12.7 % (11.6-17.2)
[2017-10-10 07:40] VITALS: BP 107/52; PULSE 68; RESP 18; TEMP 96.9; O2SAT 95
[2017-10-10] MEDS: BACITRACIN TOP OINT 15 GM TUBE TOPICAL SCH ×3 (08:07→19:55)
[2017-10-10] MEDS: ENOXAPARIN SODIUM 30 MG/0.3 ML SYRINGE SQ SCH ×2 (08:15→19:55)
[2017-10-10] MEDS: DOCUSATE SODIUM 50 MG/SENNA 8.6 MG TAB PO SCH ×2 (08:15→19:55)
[2017-10-10] MEDS: LIDOCAINE HCL 5% PATCH T-DERMAL SCH (08:15)
[2017-10-10] MEDS: GABAPENTIN 300 MG CAP PO SCH ×3 (08:15→18:33)
[2017-10-10] MEDS: MAGNESIUM HYDROXIDE SUSP 30 ML CUP PO SCH ×2 (08:16→19:51)
[2017-10-10] MEDS: LACTULOSE SYRUP 20 GM/30 ML CUP PO SCH (08:16)
[2017-10-10] MEDS: PANTOPRAZOLE SOD 40 MG DELAYED RELEASE TAB PO SCH (08:18)
[2017-10-10] MEDS: NYSTAT/DIPHENHY/LIDO MOUTHWASH (Adult) 120ML SWISH-SPIT SCH ×4 (08:18→19:51)
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
[2017-10-10] MEDS: REMOVE OLD LIDOCAINE PATCH T-DERMAL SCH (19:55)
[2017-10-10] MEDS: AMOXICILLIN/CLAVULANATE K 875 MG TAB PO SCH (19:55)
[2017-10-10 23:25] VITALS: BP 116/63; PULSE 74; RESP 18; TEMP 98.5; O2SAT 98
[2017-10-11] MEDS: ACETAMINOPHEN/HYDROcodone 325 MG/5 MG TAB PO PRN ×4 (05:53→18:40)
[2017-10-11] MEDS: BACLOFEN 10 MG TAB PO SCH ×3 (05:53→21:41)
[2017-10-11 08:00] VITALS: BP 100/56; PULSE 81; RESP 16; TEMP 97.5; O2SAT 96
[2017-10-11] MEDS: PANTOPRAZOLE SOD 40 MG DELAYED RELEASE TAB PO SCH (08:26)
[2017-10-11] MEDS: AMOXICILLIN/CLAVULANATE K 875 MG TAB PO SCH ×2 (08:26→21:41)
[2017-10-11] MEDS: DOCUSATE SODIUM 50 MG/SENNA 8.6 MG TAB PO SCH ×2 (08:26→21:41)
[2017-10-11] MEDS: GABAPENTIN 300 MG CAP PO SCH ×3 (08:26→18:37)
[2017-10-11] MEDS: LIDOCAINE HCL 5% PATCH T-DERMAL SCH (08:27)
[2017-10-11] MEDS: ENOXAPARIN SODIUM 30 MG/0.3 ML SYRINGE SQ SCH ×2 (08:27→21:41)
[2017-10-11] MEDS: REMOVE OLD LIDOCAINE PATCH T-DERMAL SCH (08:27)
[2017-10-11] MEDS: LACTULOSE SYRUP 20 GM/30 ML CUP PO SCH (08:46)
[2017-10-11] MEDS: NYSTAT/DIPHENHY/LIDO MOUTHWASH (Adult) 120ML SWISH-SPIT SCH ×5 (08:46→21:42)
[2017-10-11] MEDS: MAGNESIUM HYDROXIDE SUSP 30 ML CUP PO SCH ×2 (08:46→21:00)
[2017-10-11] MEDS: BACITRACIN TOP OINT 15 GM TUBE TOPICAL SCH ×2 (09:00→21:42)
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
[2017-10-11 19:07] VITALS: BP 104/59; PULSE 64; RESP 18; TEMP 96.9; O2SAT 96
[2017-10-12] MEDS: BACLOFEN 10 MG TAB PO SCH ×3 (05:39→20:24)
[2017-10-12] MEDS: ACETAMINOPHEN/HYDROcodone 325 MG/5 MG TAB PO PRN ×5 (05:39→23:04)
[2017-10-12] MEDS: GABAPENTIN 300 MG CAP PO SCH ×3 (07:40→17:28)
[2017-10-12] MEDS: AMOXICILLIN/CLAVULANATE K 875 MG TAB PO SCH ×2 (07:40→20:25)
[2017-10-12] MEDS: DOCUSATE SODIUM 50 MG/SENNA 8.6 MG TAB PO SCH ×2 (07:41→20:24)
[2017-10-12] MEDS: ENOXAPARIN SODIUM 30 MG/0.3 ML SYRINGE SQ SCH ×2 (07:41→20:25)
[2017-10-12] MEDS: PANTOPRAZOLE SOD 40 MG DELAYED RELEASE TAB PO SCH (07:41)
[2017-10-12] MEDS: LIDOCAINE HCL 5% PATCH T-DERMAL SCH (07:42)
[2017-10-12] MEDS: REMOVE OLD LIDOCAINE PATCH T-DERMAL SCH (07:42)
[2017-10-12 08:00] VITALS: BP 109/53; PULSE 62; RESP 18; TEMP 95.9; O2SAT 96
[2017-10-12] MEDS: MAGNESIUM HYDROXIDE SUSP 30 ML CUP PO SCH ×2 (09:00→20:25)
[2017-10-12] MEDS: LACTULOSE SYRUP 20 GM/30 ML CUP PO SCH (09:00)
[2017-10-12] MEDS: NYSTAT/DIPHENHY/LIDO MOUTHWASH (Adult) 120ML SWISH-SPIT SCH ×3 (09:00→20:23)
[2017-10-12] MEDS: BACITRACIN TOP OINT 15 GM TUBE TOPICAL SCH ×2 (09:00→23:07)
[2017-10-12 11:37] VITALS: BP 107/54; PULSE 85; RESP 18; TEMP 97.4; O2SAT 97
[2017-10-12 20:25] VITALS: BP 117/58; PULSE 70; RESP 17; TEMP 97.6; O2SAT 96
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
[2017-10-13] MEDS: ACETAMINOPHEN/HYDROcodone 325 MG/5 MG TAB PO PRN ×5 (03:43→23:30)
[2017-10-13] MEDS: BACLOFEN 10 MG TAB PO SCH ×3 (06:36→20:29)
[2017-10-13] MEDS: ENOXAPARIN SODIUM 30 MG/0.3 ML SYRINGE SQ SCH ×2 (07:39→20:29)
[2017-10-13] MEDS: AMOXICILLIN/CLAVULANATE K 875 MG TAB PO SCH ×2 (07:40→20:29)
[2017-10-13] MEDS: PANTOPRAZOLE SOD 40 MG DELAYED RELEASE TAB PO SCH (07:40)
[2017-10-13] MEDS: LIDOCAINE HCL 5% PATCH T-DERMAL SCH (07:40)
[2017-10-13] MEDS: DOCUSATE SODIUM 50 MG/SENNA 8.6 MG TAB PO SCH (07:40)
[2017-10-13] MEDS: GABAPENTIN 300 MG CAP PO SCH ×3 (07:40→17:50)
[2017-10-13 08:00] VITALS: BP 109/59; PULSE 58; RESP 17; TEMP 98.4; O2SAT 97
[2017-10-13] MEDS: BACITRACIN TOP OINT 15 GM TUBE TOPICAL SCH ×2 (09:00→23:30)
[2017-10-13] MEDS: LACTULOSE SYRUP 20 GM/30 ML CUP PO SCH (09:00)
[2017-10-13] MEDS: MAGNESIUM HYDROXIDE SUSP 30 ML CUP PO SCH ×2 (09:00→20:29)
--- NOTE | 2017-10-13 17:49 | HHI.PR ---
Subjective Remarks No acute changes overnight. No new complaints. LUE sensation at baseline per pt and nurse. Objective Vital Signs Date Time Temp Pulse Resp B/P (MAP) Pulse Ox O2 Delivery O2 Flow Rate FiO2 10/13/17 08:00 98.4 58 17 109/59 (76) 97 10/12/17 20:25 97.6 70 17 117/58 (77) 96 I/O 10/12/17 10/12/17 10/12/17 10/13/17 10/13/17 10/13/17 07:00 15:00 23:00 07:00 15:00 23:00 Intake Total 360 ml 960 ml 480 ml 360 ml 480 ml Output Total 1000 ml 1300 ml 900 ml 950 ml 1175 ml Balance -640 ml -340 ml -420 ml -590 ml -695 ml Intake Oral 360 ml 960 ml 480 ml 360 ml 480 ml IV Total 0 ml Output Urine Total 1000 ml 1300 ml 900 ml 950 ml 1175 ml # Bowel Movements 0 1 0 0 1 Result Diagram: 10/10/17 0645 Objective Remarks LUE Splint and sutures removed Incision healing well No signs infection excellent cap refill to digits x 5 SILT radial distribution, at baseline Assessment and Plan Problem List: (1) Dislocation of lunate bone of wrist ICD Codes: S63.006A - Unspecified dislocation of unspecified wrist and hand, initial encounter (2) Paraplegia ICD Codes: G82.20 - Paraplegia, unspecified Status: Acute Assessment and Plan S/p L lunate reduction doing well elevate LUE above heart OT for digit ROM, no restrictions, otherwise, LUE NWB On Monday, please check 3 view xray of L wrist Raul Nina MD Oct 13, 2017 17:49
[2017-10-13 20:00] VITALS: BP 101/55; PULSE 70; RESP 16; TEMP 97.7; O2SAT 96
[2017-10-13] MEDS: REMOVE OLD LIDOCAINE PATCH T-DERMAL SCH (20:30)
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
[2017-10-14] MEDS: ACETAMINOPHEN/HYDROcodone 325 MG/5 MG TAB PO PRN ×4 (05:51→23:53)
[2017-10-14] MEDS: BACLOFEN 10 MG TAB PO SCH ×3 (05:51→20:45)
[2017-10-14 08:00] VITALS: BP 110/56; PULSE 58; RESP 17; TEMP 96.4; O2SAT 96
[2017-10-14] MEDS: MAGNESIUM HYDROXIDE SUSP 30 ML CUP PO SCH ×2 (08:17→20:46)
[2017-10-14] MEDS: LACTULOSE SYRUP 20 GM/30 ML CUP PO SCH (08:18)
[2017-10-14] MEDS: PANTOPRAZOLE SOD 40 MG DELAYED RELEASE TAB PO SCH (08:21)
[2017-10-14] MEDS: LIDOCAINE HCL 5% PATCH T-DERMAL SCH (08:21)
[2017-10-14] MEDS: GABAPENTIN 300 MG CAP PO SCH ×3 (08:21→17:53)
[2017-10-14] MEDS: ENOXAPARIN SODIUM 30 MG/0.3 ML SYRINGE SQ SCH ×2 (08:21→20:45)
[2017-10-14] MEDS: AMOXICILLIN/CLAVULANATE K 875 MG TAB PO SCH ×2 (08:21→20:45)
[2017-10-14] MEDS: DOCUSATE SODIUM 50 MG/SENNA 8.6 MG TAB PO SCH (08:21)
[2017-10-14] MEDS: BACITRACIN TOP OINT 15 GM TUBE TOPICAL SCH ×2 (09:00→20:47)
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
[2017-10-14] MEDS ORDERED: MISCELLANEOUS PHARMACY INFORMATION XX PRN (18:30)
[2017-10-14] MEDS ORDERED: ASP: Documented ESBL, MDR A baumannii or P. aeruginosa PRN (18:30)
[2017-10-14 20:00] VITALS: BP 114/58; PULSE 71; RESP 20; TEMP 97.6; O2SAT 96
[2017-10-14] MEDS: ERTAPENEM INJ 1,000 MG in SODIUM CHLORIDE 0.9% INJ 100 ML IV SCH (20:45)
[2017-10-14] MEDS: REMOVE OLD LIDOCAINE PATCH T-DERMAL SCH (20:47)
[2017-10-14 21:37] LABS: AUTOMATED NEUTROPHIL # 4.6 TH/MM3 (1.8-7.7); BASOPHIL # 0.1 TH/MM3 (0-0.2); BASOPHIL % 1.1 % (0.0-2.0); EOSINOPHIL # 0.3 TH/MM3 (0-0.4); EOSINOPHIL % 4.3 % (0.0-4.0); HEMATOCRIT 40.9 % (39.0-51.0); HEMOGLOBIN 14.1 GM/DL (13.0-17.0); LYMPH % 28.6 % (9.0-44.0); LYMPHOCYTE # 2.3 TH/MM3 (1.0-4.8); MEAN CELL VOLUME 93.4 FL (80.0-100.0); MEAN CORPUSCULAR HEMOGLOBIN 32.3 PG (27.0-34.0); MEAN CORPUSCULAR HGB CONC 34.6 % (32.0-36.0); MONO % 8.8 % (0.0-8.0); MONOCYTE # 0.7 TH/MM3 (0-0.9); NEUT % 57.2 % (16.0-70.0); PLATELET COUNT 338 TH/MM3 (150-450); RED BLOOD COUNT 4.38 MIL/MM3 (4.50-5.90); RED CELL DISTRIBUTION WIDTH 12.3 % (11.6-17.2); WHITE BLOOD COUNT 8.1 TH/MM3 (4.0-11.0)
[2017-10-14 21:51] LABS: ALT (GPT) 40 U/L (12-78)
[2017-10-14 21:54] LABS: ALKALINE PHOSPHATASE 71 U/L (45-117); TOTAL BILIRUBIN ADULT 0.2 MG/DL (0.2-1.0); TOTAL PROTEIN 6.8 GM/DL (6.4-8.2)
[2017-10-14 22:01] LABS: ALBUMIN 3.1 GM/DL (3.4-5.0); AST (GOT) 22 U/L (15-37); BICARBONATE 28.7 MEQ/L (21.0-32.0); BLOOD UREA NITROGEN 11 MG/DL (7-18); CALCIUM 9.3 MG/DL (8.5-10.1); CHLORIDE 103 MEQ/L (98-107); CREATININE 0.63 MG/DL (0.60-1.30); GLOMERULAR FILTRATION RATE 149 ML/MIN (>89); GLUCOSE,RANDOM 141 MG/DL (74-106); SODIUM (NA) 138 MEQ/L (136-145)
[2017-10-15] MEDS: ACETAMINOPHEN/HYDROcodone 325 MG/5 MG TAB PO PRN ×2 (06:24→17:58)
[2017-10-15] MEDS: BACLOFEN 10 MG TAB PO SCH ×3 (06:24→19:41)
[2017-10-15 08:00] VITALS: BP 97/54; PULSE 51; RESP 18; TEMP 96.4; O2SAT 97
[2017-10-15] MEDS: MAGNESIUM HYDROXIDE SUSP 30 ML CUP PO SCH ×2 (09:00→19:42)
[2017-10-15] MEDS: LACTULOSE SYRUP 20 GM/30 ML CUP PO SCH (09:00)
[2017-10-15] MEDS: ENOXAPARIN SODIUM 30 MG/0.3 ML SYRINGE SQ SCH ×2 (09:23→19:41)
[2017-10-15] MEDS: PANTOPRAZOLE SOD 40 MG DELAYED RELEASE TAB PO SCH (09:23)
[2017-10-15] MEDS: AMOXICILLIN/CLAVULANATE K 875 MG TAB PO SCH ×2 (09:23→19:41)
[2017-10-15] MEDS: GABAPENTIN 300 MG CAP PO SCH ×3 (09:23→17:47)
[2017-10-15] MEDS: DOCUSATE SODIUM 50 MG/SENNA 8.6 MG TAB PO SCH (09:23)
[2017-10-15] MEDS: BACITRACIN TOP OINT 15 GM TUBE TOPICAL SCH ×2 (09:25→19:42)
[2017-10-15] MEDS: LIDOCAINE HCL 5% PATCH T-DERMAL SCH (09:25)
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
[2017-10-15] MEDS ORDERED: SODIUM CHLOR 0.9% 250 ML INJ 250 ML IV ONE (16:00)
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
[2017-10-15] MEDS: ERTAPENEM INJ 1,000 MG in SODIUM CHLORIDE 0.9% INJ 100 ML IV SCH (17:48)
[2017-10-15] MEDS: REMOVE OLD LIDOCAINE PATCH T-DERMAL SCH (19:42)
[2017-10-15 19:45] VITALS: BP 107/55; PULSE 71; RESP 17; TEMP 96.6; O2SAT 97
[2017-10-15 23:39] VITALS: O2SAT 97
[2017-10-16] MEDS: BACLOFEN 10 MG TAB PO SCH ×3 (05:17→22:00)
[2017-10-16 08:00] VITALS: BP 118/70; PULSE 64; RESP 16; TEMP 96; O2SAT 98
[2017-10-16] MEDS: LACTULOSE SYRUP 20 GM/30 ML CUP PO SCH (09:00)
[2017-10-16] MEDS: MAGNESIUM HYDROXIDE SUSP 30 ML CUP PO SCH ×2 (09:00→20:05)
[2017-10-16] MEDS: GABAPENTIN 300 MG CAP PO SCH ×3 (10:26→18:19)
[2017-10-16] MEDS: DOCUSATE SODIUM 50 MG/SENNA 8.6 MG TAB PO SCH (10:26)
[2017-10-16] MEDS: PANTOPRAZOLE SOD 40 MG DELAYED RELEASE TAB PO SCH (10:26)
[2017-10-16] MEDS: AMOXICILLIN/CLAVULANATE K 875 MG TAB PO SCH ×2 (10:26→20:05)
[2017-10-16] MEDS: LIDOCAINE HCL 5% PATCH T-DERMAL SCH (10:26)
[2017-10-16] MEDS: ENOXAPARIN SODIUM 30 MG/0.3 ML SYRINGE SQ SCH ×2 (10:26→20:05)
[2017-10-16] MEDS: BACITRACIN TOP OINT 15 GM TUBE TOPICAL SCH ×2 (10:27→20:06)
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
[2017-10-16] MEDS: ACETAMINOPHEN/HYDROcodone 325 MG/5 MG TAB PO PRN (18:19)
[2017-10-16] MEDS: ERTAPENEM INJ 1,000 MG in SODIUM CHLORIDE 0.9% INJ 100 ML IV SCH (18:19)
[2017-10-16] MEDS: REMOVE OLD LIDOCAINE PATCH T-DERMAL SCH (20:06)
[2017-10-16 20:55] VITALS: BP 103/87; PULSE 80; RESP 16; TEMP 97.1; O2SAT 97
[2017-10-17] MEDS: BACLOFEN 10 MG TAB PO SCH ×3 (06:11→21:55)
[2017-10-17 07:43] VITALS: BP 115/61; PULSE 72; RESP 18; TEMP 96.5; O2SAT 97
[2017-10-17] MEDS: LACTULOSE SYRUP 20 GM/30 ML CUP PO SCH (08:43)
[2017-10-17] MEDS: MAGNESIUM HYDROXIDE SUSP 30 ML CUP PO SCH ×2 (08:43→21:13)
[2017-10-17] MEDS: LIDOCAINE HCL 5% PATCH T-DERMAL SCH (08:43)
[2017-10-17] MEDS: ENOXAPARIN SODIUM 30 MG/0.3 ML SYRINGE SQ SCH ×2 (08:46→20:56)
[2017-10-17] MEDS: PANTOPRAZOLE SOD 40 MG DELAYED RELEASE TAB PO SCH (08:46)
[2017-10-17] MEDS: DOCUSATE SODIUM 50 MG/SENNA 8.6 MG TAB PO SCH (08:46)
[2017-10-17] MEDS: GABAPENTIN 300 MG CAP PO SCH ×3 (08:46→18:24)
[2017-10-17] MEDS: AMOXICILLIN/CLAVULANATE K 875 MG TAB PO SCH ×2 (08:46→21:55)
[2017-10-17] MEDS: BACITRACIN TOP OINT 15 GM TUBE TOPICAL SCH ×2 (08:48→21:13)
[2017-10-17] MEDS: ACETAMINOPHEN/HYDROcodone 325 MG/5 MG TAB PO PRN (08:50)
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
[2017-10-17 20:40] VITALS: BP 107/57; PULSE 61; RESP 17; TEMP 96.7; O2SAT 98
[2017-10-18] MEDS: ACETAMINOPHEN/HYDROcodone 325 MG/5 MG TAB PO PRN ×3 (00:41→19:42)
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
[2017-10-18] MEDS: BACLOFEN 10 MG TAB PO SCH ×3 (05:44→21:17)
[2017-10-18 07:47] VITALS: BP 113/56; PULSE 70; RESP 19; TEMP 95.9; O2SAT 97
[2017-10-18] MEDS: GABAPENTIN 300 MG CAP PO SCH ×3 (08:19→18:29)
[2017-10-18] MEDS: DOCUSATE SODIUM 50 MG/SENNA 8.6 MG TAB PO SCH (08:19)
[2017-10-18] MEDS: ENOXAPARIN SODIUM 30 MG/0.3 ML SYRINGE SQ SCH ×2 (08:19→21:16)
[2017-10-18] MEDS: PANTOPRAZOLE SOD 40 MG DELAYED RELEASE TAB PO SCH (08:19)
[2017-10-18] MEDS: LACTULOSE SYRUP 20 GM/30 ML CUP PO SCH (08:23)
[2017-10-18] MEDS: MAGNESIUM HYDROXIDE SUSP 30 ML CUP PO SCH ×2 (08:24→21:16)
[2017-10-18] MEDS: AMOXICILLIN/CLAVULANATE K 875 MG TAB PO SCH ×2 (08:25→21:16)
[2017-10-18] MEDS: BACITRACIN TOP OINT 15 GM TUBE TOPICAL SCH ×2 (08:28→21:17)
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
[2017-10-18 20:15] VITALS: BP 118/62; PULSE 68; RESP 18; TEMP 98.4; O2SAT 97
[2017-10-19] MEDS: ACETAMINOPHEN/HYDROcodone 325 MG/5 MG TAB PO PRN ×2 (01:10→21:00)
[2017-10-19] MEDS: BACLOFEN 10 MG TAB PO SCH ×3 (05:12→20:58)
[2017-10-19 07:36] VITALS: BP 104/55; PULSE 77; RESP 18; TEMP 97.5; O2SAT 98
[2017-10-19] MEDS: AMOXICILLIN/CLAVULANATE K 875 MG TAB PO SCH ×2 (07:43→20:58)
[2017-10-19] MEDS: PANTOPRAZOLE SOD 40 MG DELAYED RELEASE TAB PO SCH (07:43)
[2017-10-19] MEDS: ENOXAPARIN SODIUM 30 MG/0.3 ML SYRINGE SQ SCH ×2 (07:43→20:58)
[2017-10-19] MEDS: GABAPENTIN 300 MG CAP PO SCH ×3 (07:44→17:00)
[2017-10-19] MEDS: MAGNESIUM HYDROXIDE SUSP 30 ML CUP PO SCH ×2 (09:00→20:58)
[2017-10-19] MEDS: LACTULOSE SYRUP 20 GM/30 ML CUP PO SCH (09:00)
[2017-10-19] MEDS: BACITRACIN TOP OINT 15 GM TUBE TOPICAL SCH ×2 (09:00→20:59)
[2017-10-19] MEDS: DOCUSATE SODIUM 50 MG/SENNA 8.6 MG TAB PO SCH (09:00)
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
[2017-10-19 20:40] VITALS: BP 120/70; PULSE 76; RESP 17; TEMP 98.3; O2SAT 96
[2017-10-20] MEDS: BACLOFEN 10 MG TAB PO SCH ×3 (05:43→22:23)
--- NOTE | 2017-10-20 07:44 | PD.ORT.PN ---
Subjective Subjective Remarks Stable no changes. Objective Vitals Vital Signs Date Time Temp Pulse Resp B/P (MAP) Pulse Ox O2 Delivery O2 Flow Rate FiO2 10/19/17 20:40 98.3 76 17 120/70 (87) 96 I/O 10/19/17 10/19/17 10/19/17 10/20/17 10/20/17 10/20/17 07:00 15:00 23:00 07:00 15:00 23:00 Intake Total 900 ml 960 ml Output Total 1100 ml 1350 ml 1250 ml Balance -1100 ml -450 ml -290 ml Intake Oral 900 ml 960 ml Output Urine Total 1100 ml 1350 ml 1250 ml # Bowel Movements 0 Imaging Last 72 hours Impressions Wrist X-Ray 09/11/17 1200 Signed Impressions: Service Date/Time: Monday, September 11, 2017 12:26 - CONCLUSION: 1. No acute fracture or joint dislocation. The carpal bones are grossly unremarkable. 2. Old healed fractures involving the third fourth metacarpals. Vega Carmichael MD Elbow X-Ray 09/11/17 1200 Signed Impressions: Service Date/Time: Monday, September 11, 2017 12:30 - CONCLUSION: 1. There is a small sliver of cortical bone adjacent to the lateral humeral condyle. This could be a cortical avulsion injury of unknown age. Recommend correlation with point tenderness in this location. 2. Otherwise, the rest of bony structures are intact with no other definite acute fracture or joint dislocation. No definite joint effusion. Vega Carmichael MD Last 24 hours Impressions Chest X-Ray 08/28/17 0000 Signed Impressions: Service Date/Time: Monday, August 28, 2017 04:22 - CONCLUSION: 1. Left basilar atelectasis Kem Bettencourt MD Thoracic Spine CT 08/27/17 143 Signed Impressions: Service Date/Time: Sunday, August 27, 2017 14:53 - CONCLUSION: Unremarkable examination of the thoracic spine. No evidence of fracture. Kem Bettencourt MD Pelvis X-Ray 08/27/17 143 Signed Impressions: Service Date/Time: Sunday, August 27, 2017 14:27 - CONCLUSION: 1. Limited examination but no fractures identified Kem Bettencourt MD Lumbar Spine CT [id number]/27/171432 Signed Impressions: Service Date/Time: Sunday, August 27, 2017 14:53 - CONCLUSION: 1. Kem Bettencourt MD Head CT [id number]/27/171432 Signed Impressions: Service Date/Time: Sunday, August 27, 2017 14:39 - CONCLUSION: 1. No evidence of acute intracranial pathology. No masses are identified. Kem Bettencourt MD Chest X-Ray [id number]/27/171432 Signed Impressions: Service Date/Time: Sunday, August 27, 2017 14:27 - CONCLUSION: 1. No acute cardiopulmonary disease. Kem Bettencourt MD Chest CT [id number]/27/171432 Signed Impressions: Service Date/Time: Sunday, August 27, 2017 14:59 - CONCLUSION: 1. No evidence of acute thoracic abnormality. No masses are identified. Kem Bettencourt MD Cervical Spine CT [id number]/27/[id number] Signed Impressions: Service Date/Time: Sunday, August 27, 2017 14:39 - CONCLUSION: 1. Unstable fracture the cervical spine with fracture subluxation at C6-C7 and 9 mm of subluxation. 2. There is facet fracture on the right side which is perched on the apex of the right C7 facet. 3. On the left side there is complete facet jump Kem Bettencourt MD Abdomen/Pelvis CT [id number]/27/171432 Signed Impressions: Service Date/Time: Sunday, August 27, 2017 14:53 - CONCLUSION: 1. No evidence of acute abdominal or pelvic process. No masses are identified. Kem Bettencourt MD Objective Remarks LUE: . Elbow motion 30-120 degrees. No sensation over median nerve sensation. Incision healing well over palm of hand. Distal pulses and capillary refills RUE: No pain with shoulder elbow range of motion. 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 Assessment & Plan Assessment and Plan 1) Left Elbow Dislocation s/p Reduction -NWB Occupational therapy for extension and flexion of elbow and pronation and supination Dr. Rao to manage left lunate dislocation in the hand Jared Mata Jr. Oct 20, 2017 07:44
[2017-10-20 08:00] VITALS: BP 137/76; PULSE 82; RESP 17; TEMP 97.8; O2SAT 99
[2017-10-20] MEDS: MAGNESIUM HYDROXIDE SUSP 30 ML CUP PO SCH ×2 (09:00→20:36)
[2017-10-20] MEDS: PANTOPRAZOLE SOD 40 MG DELAYED RELEASE TAB PO SCH (09:20)
[2017-10-20] MEDS: AMOXICILLIN/CLAVULANATE K 875 MG TAB PO SCH (09:20)
[2017-10-20] MEDS: GABAPENTIN 300 MG CAP PO SCH ×3 (09:20→17:46)
[2017-10-20] MEDS: ENOXAPARIN SODIUM 30 MG/0.3 ML SYRINGE SQ SCH ×2 (09:21→20:37)
[2017-10-20] MEDS: DOCUSATE SODIUM 50 MG/SENNA 8.6 MG TAB PO SCH (09:32)
[2017-10-20] MEDS: ACETAMINOPHEN/HYDROcodone 325 MG/5 MG TAB PO PRN ×2 (09:32→20:43)
[2017-10-20] MEDS: BACITRACIN TOP OINT 15 GM TUBE TOPICAL SCH ×2 (09:32→20:37)
[2017-10-20] MEDS: LACTULOSE SYRUP 20 GM/30 ML CUP PO SCH (09:33)
[2017-10-20 13:05] LABS: AUTOMATED NEUTROPHIL # 6.6 TH/MM3 (1.8-7.7); BASOPHIL # 0.1 TH/MM3 (0-0.2); BASOPHIL % 0.8 % (0.0-2.0); EOSINOPHIL # 0.3 TH/MM3 (0-0.4); EOSINOPHIL % 2.5 % (0.0-4.0); HEMATOCRIT 41.6 % (39.0-51.0); HEMOGLOBIN 14.3 GM/DL (13.0-17.0); LYMPH % 26.5 % (9.0-44.0); LYMPHOCYTE # 2.8 TH/MM3 (1.0-4.8); MEAN CELL VOLUME 93.4 FL (80.0-100.0); MEAN CORPUSCULAR HEMOGLOBIN 32.1 PG (27.0-34.0); MEAN CORPUSCULAR HGB CONC 34.3 % (32.0-36.0); MEAN PLATELET VOLUME 8.2 FL (7.0-11.0); MONO % 8.7 % (0.0-8.0); MONOCYTE # 0.9 TH/MM3 (0-0.9); NEUT % 61.5 % (16.0-70.0); PLATELET COUNT 297 TH/MM3 (150-450); RED BLOOD COUNT 4.46 MIL/MM3 (4.50-5.90); RED CELL DISTRIBUTION WIDTH 12.5 % (11.6-17.2); WHITE BLOOD COUNT 10.7 TH/MM3 (4.0-11.0)
[2017-10-20 13:26] LABS: ALBUMIN 3.2 GM/DL (3.4-5.0); AST (GOT) 17 U/L (15-37); BICARBONATE 27.1 MEQ/L (21.0-32.0); BLOOD UREA NITROGEN 9 MG/DL (7-18); CALCIUM 9.4 MG/DL (8.5-10.1); CHLORIDE 101 MEQ/L (98-107); CREATININE 0.56 MG/DL (0.60-1.30); GLOMERULAR FILTRATION RATE 170 ML/MIN (>89); GLUCOSE,RANDOM 88 MG/DL (74-106); MAGNESIUM 1.9 MG/DL (1.5-2.5); SODIUM (NA) 139 MEQ/L (136-145)
[2017-10-20 13:27] LABS: ALT (GPT) 40 U/L (12-78); PHOSPHORUS 4.6 MG/DL (2.5-4.9)
[2017-10-20 13:29] LABS: ALKALINE PHOSPHATASE 70 U/L (45-117); TOTAL BILIRUBIN ADULT 0.7 MG/DL (0.2-1.0); TOTAL PROTEIN 6.8 GM/DL (6.4-8.2)
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
[2017-10-20 20:40] VITALS: BP 107/59; PULSE 80; RESP 17; TEMP 96.8; O2SAT 97
[2017-10-21] MEDS: BACLOFEN 10 MG TAB PO SCH ×3 (06:47→21:19)
[2017-10-21 08:00] VITALS: BP 108/56; PULSE 70; RESP 18; TEMP 97.3; O2SAT 97
[2017-10-21] MEDS: BACITRACIN TOP OINT 15 GM TUBE TOPICAL SCH (09:00)
[2017-10-21] MEDS: MAGNESIUM HYDROXIDE SUSP 30 ML CUP PO SCH ×2 (09:00→21:19)
[2017-10-21] MEDS: DOCUSATE SODIUM 50 MG/SENNA 8.6 MG TAB PO SCH (09:00)
[2017-10-21] MEDS: LACTULOSE SYRUP 20 GM/30 ML CUP PO SCH (09:00)
[2017-10-21] MEDS: ENOXAPARIN SODIUM 30 MG/0.3 ML SYRINGE SQ SCH ×2 (09:18→21:19)
[2017-10-21] MEDS: GABAPENTIN 300 MG CAP PO SCH ×3 (09:18→18:00)
[2017-10-21] MEDS: PANTOPRAZOLE SOD 40 MG DELAYED RELEASE TAB PO SCH (09:18)
[2017-10-21] MEDS: ACETAMINOPHEN/HYDROcodone 325 MG/5 MG TAB PO PRN (12:41)
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
[2017-10-21 20:00] VITALS: BP 109/65; PULSE 72; RESP 16; TEMP 96.5; O2SAT 97
[2017-10-22] MEDS: BACITRACIN TOP OINT 15 GM TUBE TOPICAL SCH ×3 (01:30→22:03)
[2017-10-22] MEDS: ACETAMINOPHEN/HYDROcodone 325 MG/5 MG TAB PO PRN ×3 (01:36→22:03)
[2017-10-22] MEDS: BACLOFEN 10 MG TAB PO SCH ×3 (06:08→22:03)
[2017-10-22 08:00] VITALS: BP 107/58; PULSE 59; RESP 18; TEMP 96.3; O2SAT 98
[2017-10-22] MEDS: DOCUSATE SODIUM 50 MG/SENNA 8.6 MG TAB PO SCH (09:00)
[2017-10-22] MEDS: LACTULOSE SYRUP 20 GM/30 ML CUP PO SCH (09:00)
[2017-10-22] MEDS: MAGNESIUM HYDROXIDE SUSP 30 ML CUP PO SCH ×2 (09:00→21:00)
[2017-10-22] MEDS: PANTOPRAZOLE SOD 40 MG DELAYED RELEASE TAB PO SCH (10:01)
[2017-10-22] MEDS: ENOXAPARIN SODIUM 30 MG/0.3 ML SYRINGE SQ SCH ×2 (10:01→22:03)
[2017-10-22] MEDS: GABAPENTIN 300 MG CAP PO SCH ×3 (10:01→18:11)
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
[2017-10-22 20:00] VITALS: BP 119/62; PULSE 76; RESP 16; TEMP 97; O2SAT 98
[2017-10-23] MEDS: BACLOFEN 10 MG TAB PO SCH ×3 (06:06→21:44)
[2017-10-23] MEDS: ENOXAPARIN SODIUM 30 MG/0.3 ML SYRINGE SQ SCH ×2 (08:00→21:45)
[2017-10-23 08:15] VITALS: BP 113/56; PULSE 79; RESP 18; TEMP 96.6; O2SAT 97
[2017-10-23] MEDS: GABAPENTIN 300 MG CAP PO SCH ×3 (09:00→18:00)
[2017-10-23] MEDS: LACTULOSE SYRUP 20 GM/30 ML CUP PO SCH (09:00)
[2017-10-23] MEDS: BACITRACIN TOP OINT 15 GM TUBE TOPICAL SCH ×2 (09:00→21:52)
[2017-10-23] MEDS: MAGNESIUM HYDROXIDE SUSP 30 ML CUP PO SCH ×2 (09:00→21:44)
[2017-10-23] MEDS: DOCUSATE SODIUM 50 MG/SENNA 8.6 MG TAB PO SCH (09:00)
[2017-10-23] MEDS: PANTOPRAZOLE SOD 40 MG DELAYED RELEASE TAB PO SCH (09:00)
[2017-10-23] MEDS: ACETAMINOPHEN/HYDROcodone 325 MG/5 MG TAB PO PRN ×2 (10:06→21:51)
--- NOTE | 2017-10-23 13:32 | HHI.PR ---
Objective Vitals Result Diagram: 10/20/17 1213 10/20/17 1213 Layne Castellon MD Oct 23, 2017 13:32
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
[2017-10-23 21:25] VITALS: BP 107/50; PULSE 91; RESP 19; TEMP 97; O2SAT 98
[2017-10-23 22:11] VITALS: O2SAT 97
[2017-10-24] MEDS: BACLOFEN 10 MG TAB PO SCH ×3 (05:57→21:35)
[2017-10-24 08:00] VITALS: BP 115/57; PULSE 66; RESP 18; TEMP 96.9; O2SAT 97
[2017-10-24] MEDS: LACTULOSE SYRUP 20 GM/30 ML CUP PO SCH (09:00)
[2017-10-24] MEDS: MAGNESIUM HYDROXIDE SUSP 30 ML CUP PO SCH ×2 (09:00→21:46)
[2017-10-24] MEDS: GABAPENTIN 300 MG CAP PO SCH ×3 (09:27→17:52)
[2017-10-24] MEDS: PANTOPRAZOLE SOD 40 MG DELAYED RELEASE TAB PO SCH (09:27)
[2017-10-24] MEDS: DOCUSATE SODIUM 50 MG/SENNA 8.6 MG TAB PO SCH (09:27)
[2017-10-24] MEDS: ENOXAPARIN SODIUM 30 MG/0.3 ML SYRINGE SQ SCH ×2 (09:28→21:35)
[2017-10-24] MEDS: BACITRACIN TOP OINT 15 GM TUBE TOPICAL SCH ×2 (09:28→21:46)
[2017-10-24] MEDS: ACETAMINOPHEN/HYDROcodone 325 MG/5 MG TAB PO PRN ×2 (09:37→21:35)
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
[2017-10-24 22:30] VITALS: BP 109/61; PULSE 61; RESP 18; TEMP 97.4; O2SAT 98
[2017-10-25] MEDS: BACLOFEN 10 MG TAB PO SCH ×3 (05:50→20:25)
[2017-10-25 08:00] VITALS: BP 117/69; PULSE 61; RESP 16; TEMP 97; O2SAT 97
[2017-10-25] MEDS: DOCUSATE SODIUM 50 MG/SENNA 8.6 MG TAB PO SCH (08:46)
[2017-10-25] MEDS: GABAPENTIN 300 MG CAP PO SCH ×3 (08:46→17:58)
[2017-10-25] MEDS: ENOXAPARIN SODIUM 30 MG/0.3 ML SYRINGE SQ SCH ×2 (08:47→20:25)
[2017-10-25] MEDS: PANTOPRAZOLE SOD 40 MG DELAYED RELEASE TAB PO SCH (08:47)
[2017-10-25] MEDS: MAGNESIUM HYDROXIDE SUSP 30 ML CUP PO SCH ×2 (08:47→20:25)
[2017-10-25] MEDS: LACTULOSE SYRUP 20 GM/30 ML CUP PO SCH (08:47)
[2017-10-25] MEDS: ACETAMINOPHEN/HYDROcodone 325 MG/5 MG TAB PO PRN ×2 (08:47→22:01)
[2017-10-25] MEDS: BACITRACIN TOP OINT 15 GM TUBE TOPICAL SCH ×2 (08:48→20:26)
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
[2017-10-25 19:19] VITALS: BP 110/58; PULSE 82; RESP 16; TEMP 96.7; O2SAT 98
[2017-10-26] MEDS: BACLOFEN 10 MG TAB PO SCH ×3 (05:46→21:13)
[2017-10-26 08:00] VITALS: BP 122/65; PULSE 68; RESP 18; TEMP 97.4; O2SAT 97
[2017-10-26] MEDS: LACTULOSE SYRUP 20 GM/30 ML CUP PO SCH (08:16)
[2017-10-26] MEDS: MAGNESIUM HYDROXIDE SUSP 30 ML CUP PO SCH ×2 (08:16→21:00)
[2017-10-26] MEDS: DOCUSATE SODIUM 50 MG/SENNA 8.6 MG TAB PO SCH (08:18)
[2017-10-26] MEDS: PANTOPRAZOLE SOD 40 MG DELAYED RELEASE TAB PO SCH (08:18)
[2017-10-26] MEDS: GABAPENTIN 300 MG CAP PO SCH ×3 (08:18→19:02)
[2017-10-26] MEDS: ENOXAPARIN SODIUM 30 MG/0.3 ML SYRINGE SQ SCH ×2 (08:21→20:00)
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
[2017-10-26] MEDS: BACITRACIN TOP OINT 15 GM TUBE TOPICAL SCH ×2 (09:00→21:21)
[2017-10-26] MEDS: ACETAMINOPHEN/HYDROcodone 325 MG/5 MG TAB PO PRN ×2 (10:25→21:14)
[2017-10-26 20:45] VITALS: BP 107/58; PULSE 85; RESP 17; TEMP 96.9; O2SAT 97
[2017-10-27] MEDS: BACLOFEN 10 MG TAB PO SCH ×3 (06:33→20:48)
[2017-10-27 07:40] VITALS: BP 112/58; PULSE 66; RESP 18; TEMP 96.1; O2SAT 96
[2017-10-27] MEDS: PANTOPRAZOLE SOD 40 MG DELAYED RELEASE TAB PO SCH (08:03)
[2017-10-27] MEDS: GABAPENTIN 300 MG CAP PO SCH ×3 (08:03→19:09)
[2017-10-27] MEDS: DOCUSATE SODIUM 50 MG/SENNA 8.6 MG TAB PO SCH (08:03)
[2017-10-27] MEDS: ACETAMINOPHEN/HYDROcodone 325 MG/5 MG TAB PO PRN ×2 (08:03→20:49)
[2017-10-27] MEDS: LACTULOSE SYRUP 20 GM/30 ML CUP PO SCH (08:04)
[2017-10-27] MEDS: ENOXAPARIN SODIUM 30 MG/0.3 ML SYRINGE SQ SCH ×2 (08:04→20:48)
[2017-10-27] MEDS: MAGNESIUM HYDROXIDE SUSP 30 ML CUP PO SCH ×2 (08:04→20:52)
[2017-10-27] MEDS: BACITRACIN TOP OINT 15 GM TUBE TOPICAL SCH ×2 (08:05→23:15)
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
[2017-10-27 20:45] VITALS: BP 116/59; PULSE 83; RESP 16; TEMP 97.6; O2SAT 96
[2017-10-28] MEDS: BACLOFEN 10 MG TAB PO SCH ×3 (06:20→20:25)
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
[2017-10-28 08:00] VITALS: BP 115/57; PULSE 97; RESP 18; TEMP 96.4; O2SAT 97
[2017-10-28] MEDS: ENOXAPARIN SODIUM 30 MG/0.3 ML SYRINGE SQ SCH ×2 (08:00→20:25)
[2017-10-28] MEDS: GABAPENTIN 300 MG CAP PO SCH ×3 (08:45→17:43)
[2017-10-28] MEDS: DOCUSATE SODIUM 50 MG/SENNA 8.6 MG TAB PO SCH (08:45)
[2017-10-28] MEDS: PANTOPRAZOLE SOD 40 MG DELAYED RELEASE TAB PO SCH (08:45)
[2017-10-28] MEDS: LACTULOSE SYRUP 20 GM/30 ML CUP PO SCH (08:46)
[2017-10-28] MEDS: MAGNESIUM HYDROXIDE SUSP 30 ML CUP PO SCH ×2 (08:46→20:25)
[2017-10-28] MEDS: BACITRACIN TOP OINT 15 GM TUBE TOPICAL SCH ×2 (08:47→20:25)
[2017-10-28] MEDS: ACETAMINOPHEN/HYDROcodone 325 MG/5 MG TAB PO PRN ×2 (12:21→20:25)
[2017-10-28 20:28] VITALS: BP 113/57; PULSE 74; RESP 18; TEMP 96.7; O2SAT 97
[2017-10-29] MEDS: BACLOFEN 10 MG TAB PO SCH ×3 (06:17→21:22)
[2017-10-29 08:00] VITALS: BP 105/54; PULSE 71; RESP 17; TEMP 97; O2SAT 96
[2017-10-29] MEDS: ENOXAPARIN SODIUM 30 MG/0.3 ML SYRINGE SQ SCH ×2 (08:04→21:10)
[2017-10-29] MEDS: PANTOPRAZOLE SOD 40 MG DELAYED RELEASE TAB PO SCH (08:04)
[2017-10-29] MEDS: ACETAMINOPHEN/HYDROcodone 325 MG/5 MG TAB PO PRN ×2 (08:05→17:22)
[2017-10-29] MEDS: MAGNESIUM HYDROXIDE SUSP 30 ML CUP PO SCH ×2 (08:05→21:00)
[2017-10-29] MEDS: GABAPENTIN 300 MG CAP PO SCH ×3 (08:05→17:22)
[2017-10-29] MEDS: BACITRACIN TOP OINT 15 GM TUBE TOPICAL SCH ×2 (08:05→21:11)
[2017-10-29] MEDS: DOCUSATE SODIUM 50 MG/SENNA 8.6 MG TAB PO SCH (08:05)
[2017-10-29] MEDS: LACTULOSE SYRUP 20 GM/30 ML CUP PO SCH (08:06)
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
[2017-10-29 20:50] VITALS: BP 118/56; PULSE 65; RESP 17; TEMP 97.5; O2SAT 95
[2017-10-30] MEDS: ACETAMINOPHEN/HYDROcodone 325 MG/5 MG TAB PO PRN ×4 (01:05→22:53)
[2017-10-30] MEDS: BACLOFEN 10 MG TAB PO SCH ×3 (06:14→20:56)
[2017-10-30 08:00] VITALS: BP 110/61; PULSE 68; RESP 17; TEMP 95.6; O2SAT 99
[2017-10-30] MEDS: ENOXAPARIN SODIUM 30 MG/0.3 ML SYRINGE SQ SCH ×2 (08:00→20:56)
[2017-10-30] MEDS: PANTOPRAZOLE SOD 40 MG DELAYED RELEASE TAB PO SCH (08:01)
[2017-10-30] MEDS: GABAPENTIN 300 MG CAP PO SCH ×3 (08:01→18:00)
[2017-10-30] MEDS: DOCUSATE SODIUM 50 MG/SENNA 8.6 MG TAB PO SCH (08:01)
[2017-10-30] MEDS: MAGNESIUM HYDROXIDE SUSP 30 ML CUP PO SCH ×2 (08:02→21:00)
[2017-10-30] MEDS: LACTULOSE SYRUP 20 GM/30 ML CUP PO SCH (08:02)
[2017-10-30] MEDS: BACITRACIN TOP OINT 15 GM TUBE TOPICAL SCH ×2 (08:02→21:01)
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
[2017-10-30 19:45] VITALS: BP 107/61; PULSE 73; RESP 16; TEMP 96.9; O2SAT 96
[2017-10-31] MEDS: BACLOFEN 10 MG TAB PO SCH ×3 (06:31→22:11)
[2017-10-31 07:59] VITALS: BP 117/65; PULSE 74; RESP 17; TEMP 97.6; O2SAT 97
[2017-10-31] MEDS: BACITRACIN TOP OINT 15 GM TUBE TOPICAL SCH ×2 (09:00→21:00)
[2017-10-31] MEDS: LACTULOSE SYRUP 20 GM/30 ML CUP PO SCH (09:00)
[2017-10-31] MEDS: MAGNESIUM HYDROXIDE SUSP 30 ML CUP PO SCH ×2 (09:00→20:25)
[2017-10-31] MEDS: GABAPENTIN 300 MG CAP PO SCH ×3 (09:17→17:19)
[2017-10-31] MEDS: ENOXAPARIN SODIUM 30 MG/0.3 ML SYRINGE SQ SCH ×2 (09:17→20:22)
[2017-10-31] MEDS: PANTOPRAZOLE SOD 40 MG DELAYED RELEASE TAB PO SCH (09:17)
[2017-10-31] MEDS: DOCUSATE SODIUM 50 MG/SENNA 8.6 MG TAB PO SCH (09:17)
[2017-10-31] MEDS: ACETAMINOPHEN/HYDROcodone 325 MG/5 MG TAB PO PRN ×2 (09:18→22:11)
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
[2017-10-31 20:00] VITALS: BP 138/74; PULSE 66; RESP 17; TEMP 96.5; O2SAT 92
[2017-11-01] MEDS: BACLOFEN 10 MG TAB PO SCH ×3 (05:54→23:19)
[2017-11-01 08:00] VITALS: BP 109/67; PULSE 82; RESP 17; TEMP 97.7; O2SAT 17
[2017-11-01] MEDS: ENOXAPARIN SODIUM 30 MG/0.3 ML SYRINGE SQ SCH ×2 (08:17→19:53)
[2017-11-01] MEDS: DOCUSATE SODIUM 50 MG/SENNA 8.6 MG TAB PO SCH (08:17)
[2017-11-01] MEDS: GABAPENTIN 300 MG CAP PO SCH ×2 (08:17→14:24)
[2017-11-01] MEDS: PANTOPRAZOLE SOD 40 MG DELAYED RELEASE TAB PO SCH (08:17)
[2017-11-01] MEDS: BACITRACIN TOP OINT 15 GM TUBE TOPICAL SCH ×2 (08:18→22:16)
[2017-11-01] MEDS: ACETAMINOPHEN/HYDROcodone 325 MG/5 MG TAB PO PRN ×3 (08:25→23:19)
[2017-11-01] MEDS: LACTULOSE SYRUP 20 GM/30 ML CUP PO SCH (09:00)
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
[2017-11-01 20:37] VITALS: BP 101/61; PULSE 78; RESP 18; TEMP 96.8; O2SAT 96
[2017-11-01] MEDS: MAGNESIUM HYDROXIDE SUSP 30 ML CUP PO SCH (21:00)
[2017-11-02] MEDS: BACLOFEN 10 MG TAB PO SCH ×3 (06:35→23:00)
[2017-11-02 08:00] VITALS: BP 128/75; PULSE 76; RESP 18; TEMP 96.7; O2SAT 97
[2017-11-02] MEDS ORDERED: ONDANSETRON ODT 4 MG TAB PO PRN (08:00)
[2017-11-02] MEDS: LACTULOSE SYRUP 20 GM/30 ML CUP PO SCH (09:00)
[2017-11-02] MEDS: DOCUSATE SODIUM 50 MG/SENNA 8.6 MG TAB PO SCH (09:00)
[2017-11-02] MEDS: MAGNESIUM HYDROXIDE SUSP 30 ML CUP PO SCH ×2 (09:00→21:00)
[2017-11-02] MEDS: PANTOPRAZOLE SOD 40 MG DELAYED RELEASE TAB PO SCH (09:30)
[2017-11-02] MEDS: GABAPENTIN 300 MG CAP PO SCH ×3 (09:30→17:35)
[2017-11-02] MEDS: ENOXAPARIN SODIUM 30 MG/0.3 ML SYRINGE SQ SCH ×2 (09:32→20:37)
[2017-11-02] MEDS: ACETAMINOPHEN/HYDROcodone 325 MG/5 MG TAB PO PRN ×2 (09:36→23:00)
[2017-11-02] MEDS: BACITRACIN TOP OINT 15 GM TUBE TOPICAL SCH ×2 (09:37→23:00)
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
[2017-11-02 21:36] VITALS: BP 107/57; PULSE 95; RESP 18; TEMP 97; O2SAT 98
[2017-11-03] MEDS: BACLOFEN 10 MG TAB PO SCH ×3 (06:19→21:56)
[2017-11-03 08:00] VITALS: BP 126/71; PULSE 76; RESP 18; TEMP 98.2; O2SAT 97
[2017-11-03] MEDS: PANTOPRAZOLE SOD 40 MG DELAYED RELEASE TAB PO SCH (08:42)
[2017-11-03] MEDS: GABAPENTIN 300 MG CAP PO SCH ×3 (08:42→18:12)
[2017-11-03] MEDS: DOCUSATE SODIUM 50 MG/SENNA 8.6 MG TAB PO SCH (08:42)
[2017-11-03] MEDS: ACETAMINOPHEN/HYDROcodone 325 MG/5 MG TAB PO PRN ×2 (08:42→21:56)
[2017-11-03] MEDS: ENOXAPARIN SODIUM 30 MG/0.3 ML SYRINGE SQ SCH ×2 (08:43→22:01)
[2017-11-03] MEDS: BACITRACIN TOP OINT 15 GM TUBE TOPICAL SCH ×2 (08:46→22:01)
[2017-11-03] MEDS: LACTULOSE SYRUP 20 GM/30 ML CUP PO SCH (08:46)
[2017-11-03] MEDS: MAGNESIUM HYDROXIDE SUSP 30 ML CUP PO SCH ×2 (08:46→22:01)
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
[2017-11-03 20:31] VITALS: BP 95/55; PULSE 81; RESP 18; TEMP 97.3; O2SAT 96
[2017-11-04] MEDS: BACLOFEN 10 MG TAB PO SCH ×3 (05:52→22:39)
[2017-11-04 08:00] VITALS: BP 103/66; PULSE 80; RESP 18; TEMP 97.1; O2SAT 94
[2017-11-04] MEDS: LACTULOSE SYRUP 20 GM/30 ML CUP PO SCH (08:40)
[2017-11-04] MEDS: DOCUSATE SODIUM 50 MG/SENNA 8.6 MG TAB PO SCH (08:41)
[2017-11-04] MEDS: MAGNESIUM HYDROXIDE SUSP 30 ML CUP PO SCH ×2 (08:41→21:00)
[2017-11-04] MEDS: ENOXAPARIN SODIUM 30 MG/0.3 ML SYRINGE SQ SCH ×2 (08:58→21:19)
[2017-11-04] MEDS: PANTOPRAZOLE SOD 40 MG DELAYED RELEASE TAB PO SCH (08:58)
[2017-11-04] MEDS: GABAPENTIN 300 MG CAP PO SCH ×3 (08:58→17:40)
[2017-11-04] MEDS: BACITRACIN TOP OINT 15 GM TUBE TOPICAL SCH ×2 (09:01→22:33)
[2017-11-04] MEDS: ACETAMINOPHEN/HYDROcodone 325 MG/5 MG TAB PO PRN ×2 (09:02→22:39)
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
[2017-11-04 20:55] VITALS: BP 106/55; PULSE 76; RESP 16; TEMP 96.9; O2SAT 97
[2017-11-05] MEDS: BACLOFEN 10 MG TAB PO SCH ×3 (06:26→22:05)
[2017-11-05 08:00] VITALS: BP 117/75; PULSE 70; RESP 18; TEMP 96.6; O2SAT 97
[2017-11-05] MEDS: LACTULOSE SYRUP 20 GM/30 ML CUP PO SCH (09:00)
[2017-11-05] MEDS: MAGNESIUM HYDROXIDE SUSP 30 ML CUP PO SCH ×2 (09:00→21:52)
[2017-11-05] MEDS: ENOXAPARIN SODIUM 30 MG/0.3 ML SYRINGE SQ SCH ×2 (10:34→20:12)
[2017-11-05] MEDS: GABAPENTIN 300 MG CAP PO SCH ×3 (10:34→17:28)
[2017-11-05] MEDS: ACETAMINOPHEN/HYDROcodone 325 MG/5 MG TAB PO PRN ×2 (10:35→22:05)
[2017-11-05] MEDS: DOCUSATE SODIUM 50 MG/SENNA 8.6 MG TAB PO SCH (10:35)
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
[2017-11-05] MEDS: PANTOPRAZOLE SOD 40 MG DELAYED RELEASE TAB PO SCH (10:53)
[2017-11-05] MEDS: BACITRACIN TOP OINT 15 GM TUBE TOPICAL SCH ×2 (11:02→21:52)
[2017-11-05 20:00] VITALS: BP 129/69; PULSE 76; RESP 20; TEMP 97; O2SAT 97
[2017-11-06] MEDS: BACLOFEN 10 MG TAB PO SCH (06:10)
[2017-11-06 08:00] VITALS: BP 114/68; PULSE 85; RESP 18; TEMP 96.8; O2SAT 99
[2017-11-06] MEDS: DOCUSATE SODIUM 50 MG/SENNA 8.6 MG TAB PO SCH (08:31)
[2017-11-06] MEDS: PANTOPRAZOLE SOD 40 MG DELAYED RELEASE TAB PO SCH (08:31)
[2017-11-06] MEDS: GABAPENTIN 300 MG CAP PO SCH (08:31)
[2017-11-06] MEDS: MAGNESIUM HYDROXIDE SUSP 30 ML CUP PO SCH (08:32)
[2017-11-06] MEDS: ENOXAPARIN SODIUM 30 MG/0.3 ML SYRINGE SQ SCH (08:32)
[2017-11-06] MEDS: LACTULOSE SYRUP 20 GM/30 ML CUP PO SCH (08:32)
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
[2017-11-06] MEDS: ACETAMINOPHEN/HYDROcodone 325 MG/5 MG TAB PO PRN (10:33)
[2017-11-06] MEDS: ONDANSETRON HCL 4 MG/2 ML VIAL IV PUSH PRN (10:56)
--- NOTE | 2017-11-06 11:12 | RADRPT ---
EXAM DATE/TIME: 11/06/2017 09:35 [facility] COMPARISON: CT CERVICAL SPINE W/O CONTRAST, August 27, 2017, 14:39. CT ELBOW LEFT W/O CONTRAST, September 01 8, 13:38. INDICATIONS : Evaluate for halo removal RADIATION DOSE: 25.42 CTDIvol (mGy) MEDICAL HISTORY : None SURGICAL HISTORY : halo ENCOUNTER: Initial ACUITY: 1 day PAIN SCALE: 0/10 LOCATION: neck TECHNIQUE: Volumetric scanning of the cervical spine was performed. Multiplanar reconstructions in the sagittal, coronal and oblique axial planes were performed. Using automated exposure control and adjustment o f the mA and/or kV according to patient size, radiation dose was kept as low as reasonably achievable to obtain optimal diagnostic quality images. DICOM format image data is available electronically f or review and comparison. FINDINGS: Thin section axial imaging of the cervical spine was performed. Sagittal and coronal reformatted images demonstrate anterior cervical fusion across the C6-7 level. T here has been complete reduction of the subluxation and perched facet which were evident on previous CT examination dated 08/27/16. As yet, the fracture line in the posterior facet at C6 remains visible. The plate appears very well positioned. The fusion across the C6-7 level does not yet appear solid. C1/2: No acute bony abnormality identified. C2/3: The thecal space is adequate. The neural foramina are adequate. No significant abnormality is identif ied. C3/4: The thecal space is adequate. The neural foramina are adequate. No significant abnormality is identif ied. C4/5: The thecal space is adequate. The neural foramina are adequate. No significant abnormality is identif ied. C5/6: There is minimal broad-based disc bulge. The thecal space appears adequate. The facet joints are inta ct. C6/7: There is anterior fusion across the C6-7 level. The patient's fracture through the facet on the right side is again evident. The thecal space and foramina appear adequate. C7/T1: There is mild degeneration of the disc. The thecal space and neural foramina are adequate. CONCLUSION: 1. The patient has undergone cervical fusion across C6-7 secondary to a fracture. The alignment of th e cervical spine is excellent. The fracture line through the facet joint of C6 on the right remains v isible. The C6-7 level does not yet appear solidly fused. Arnulfo Mohamud MD on November 06, 2017 at 10:32 Board Certified Radiologist. This report was verified electronically.
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
== END 2017-11-06 11:17 | DRG 957 ==
LOC: NEPI 14:25 → EDBD 15:17 → NEDA 15:17 → N03A 15:25 → N06B 09-01 20:49 → N06A 09-05 14:01
PROVIDERS: ADMIT Family Medicine; ATTEND Family Medicine
PROC: 0RSMXZZ Reposition Left Elbow Joint, External Approach (ICD-10-PCS; 2017-08-27)
PROC: 0RG10A0 Fusion of Cervical Vertebral Joint with Interbody Fusion Device, Anterior Approach, Anterior Column, Open Approach (ICD-10-PCS; 2017-08-28)
PROC: 0RT30ZZ Resection of Cervical Vertebral Disc, Open Approach (ICD-10-PCS; 2017-08-28)
PROC: 2W60X0Z Traction of Head using Traction Apparatus (ICD-10-PCS; 2017-08-28)
PROC: 00NW0ZZ Release Cervical Spinal Cord, Open Approach (ICD-10-PCS; principal; 2017-08-28 11:20)
PROC: 0T9B70Z Drainage of Bladder with Drainage Device, Via Natural or Artificial Opening (ICD-10-PCS; 2017-09-01)
PROC: 01N50ZZ Release Median Nerve, Open Approach (ICD-10-PCS; 2017-09-28)
PROC: 0RS Upper Joints, Reposition (ICD-10-PCS; 2017-09-28)
PROC: 0MQ80ZZ Repair Left Hand Bursa and Ligament, Open Approach (ICD-10-PCS; 2017-09-28)
DX: S14.117A Complete lesion at C7 level of cervical spinal cord, initial encounter (principal); G82.53 Quadriplegia, C5-C7 complete; S06.4X9A Epidural hemorrhage with loss of consciousness of unspecified duration, initial encounter; E88.09 Other disorders of plasma-protein metabolism, not elsewhere classified; N48.30 Priapism, unspecified; N39.0 Urinary tract infection, site not specified; J98.11 Atelectasis; S53.105A Unspecified dislocation of left ulnohumeral joint, initial encounter; R00.1 Bradycardia, unspecified; D64.9 Anemia, unspecified; S12.690A Other displaced fracture of seventh cervical vertebra, initial encounter for closed fracture; S63.092A Other subluxation of left wrist and hand, initial encounter; S54.02XA Injury of ulnar nerve at forearm level, left arm, initial encounter; S12.500A Unspecified displaced fracture of sixth cervical vertebra, initial encounter for closed fracture; V29.9XXA Motorcycle rider (driver) (passenger) injured in unspecified traffic accident, initial encounter; Y92.488 Other paved roadways as the place of occurrence of the external cause; Y93.89 Activity, other specified; R06.89 Other abnormalities of breathing; F43.23 Adjustment disorder with mixed anxiety and depressed mood; S00.91XA Abrasion of unspecified part of head, initial encounter; G56.02 Carpal tunnel syndrome, left upper limb; S63.8X2A Sprain of other part of left wrist and hand, initial encounter; Z91.5 Personal history of self-harm; F12.90 Cannabis use, unspecified, uncomplicated; Z81.8 Family history of other mental and behavioral disorders; E66.9 Obesity, unspecified; Z98.1 Arthrodesis status; B96.20 Unspecified Escherichia coli [E. coli] as the cause of diseases classified elsewhere; R33.9 Retention of urine, unspecified; Z16.12 Extended spectrum beta lactamase (ESBL) resistance; I95.1 Orthostatic hypotension; R63.0 Anorexia; L53.8 Other specified erythematous conditions
CPT/HCPCS: 24600; 70450; 70498; 71045; 71260; 72020; 72040; 72125; 72129; 72132; 72141; 72170; 73020; 73070; 73080; 73100; 73110; 73130; 73140; 73200; 74177; 76000; 76937; 80048; 80053; 81001; 82435; 82565; 82947; 82948; 83735; 84100; 84132; 84295; 84520; 85025; 85610; 85730; 86850; 86900; 86901; 87040; 87077; 87086; 87186; 87641; 94150; 94664; 94667; 94668; 96374; 96375; 99152; 99291; C1713; E0840; G0390; J0131; J0461; J0690; J1100; J1170; J1335; J1580; J1650; J2250; J2270; J2370; J2405; J2710; J3010; J3370; J3480; J7030; J7050; J7120; J7613; L0150; L0172; L0810; Q9967